=== PATIENT | male | born 1945 | race Caucasian/White ===

== ENCOUNTER 2016-09-29 15:13 | Outpatient (CLI) | payer MEDICARE, MEDICAID | END 2016-09-29 15:14 | disposition home or self-care (01) | DX: E87.6 Hypokalemia (principal); D50.9 Iron deficiency anemia, unspecified ==

== ENCOUNTER 2017-01-11 13:44 | Outpatient (CLI) | payer MEDICARE, MEDICAID | END 2017-01-11 23:59 | DX: E87.6 Hypokalemia (principal); D50.9 Iron deficiency anemia, unspecified; N28.9 Disorder of kidney and ureter, unspecified ==

== ENCOUNTER 2017-03-05 09:26 | Outpatient (CLI) | payer MEDICARE, MEDICAID ==
[2017-03-05 14:30] LABS: BASOPHILS # (AUTO) 0.1 10^3/uL (0.0-0.1); BASOPHILS % (AUTO) 0.6 %; BILIRUBIN,URINE NEGATIVE (NEGATIVE); EOSINOPHILS # (AUTO) 0.6 10^3/uL (0.0-0.7); EOSINOPHILS % (AUTO) 6.6 %; HCT - HEMATOCRIT 45.5 % (42.0-52.0); HGB - HEMOGLOBIN 15.3 g/dL (14.0-18.0); LYMPHOCYTES # (AUTO) 2.5 10^3/uL (1.5-3.5); LYMPHOCYTES % (AUTO) 27.9 %; MEAN CORPUSCULAR HEMOGLOBIN 30.8 pg (27.0-31.0); MEAN CORPUSCULAR HGB CONC 33.5 g/dL (32.0-36.0); MEAN CORPUSCULAR VOLUME 91.7 fL (80.0-94.0); MEAN PLATELET VOLUME 7.5 fL (7.4-11.4); MONOCYTES # (AUTO) 1.1 10^3/uL (0.0-1.0); NEUTROPHILS # (AUTO) 4.8 10^3/uL (1.5-6.6); NEUTROPHILS % (AUTO) 52.9 %; RED BLOOD COUNT 4.96 10^6/uL (4.70-6.10); UNCORRECTED WHITE BLOOD COUNT 9.1 x10^3/uL; WHITE BLOOD COUNT 9.1 x10^3/uL (4.8-10.8)
[2017-03-05 14:32] LABS: UA CHARGE (STRIP ONLY) YES; UR CULTURE IF IND NOT INDICATED
[2017-03-05 14:59] LABS: ALBUMIN/GLOBULIN RATIO 0.9 (1.0-2.2); BILIRUBIN,TOTAL 0.4 mg/dL (0.2-1.0); CALCIUM 9.5 mg/dL (8.5-10.3); CREATININE 1.1 mg/dL (0.6-1.2); POTASSIUM 3.6 mmol/L (3.5-5.0); TOTAL PROTEIN 7.9 g/dL (6.7-8.2)
[2017-03-05 15:00] LABS: HEMOGLOBIN A1C 0.58 g/dL
== END 2017-03-05 09:27 | disposition home or self-care (01) ==
LOC: LAB.N 09:26
PROVIDERS: ATTEND Orthopaedic Surgery
DX: Z01.818 Encounter for other preprocedural examination (principal); R73.09 Other abnormal glucose; N39.0 Urinary tract infection, site not specified
CPT/HCPCS: 36415; 80053; 81001; 81003; 83036; 85025; 87086

== ENCOUNTER 2017-03-07 13:30 | Outpatient (CLI) | payer MEDICARE, MEDICAID | END 2017-03-07 13:45 | disposition home or self-care (01) | LOC: RT.N 13:30 | PROVIDERS: ATTEND Family Medicine | DX: M17.0 Bilateral primary osteoarthritis of knee (principal); E66.9 Obesity, unspecified | CPT/HCPCS: 93005 ==

== ENCOUNTER 2020-05-16 02:10 | Outpatient (CLI) | payer MEDICARE, MEDICAID | END 2020-05-16 02:11 | disposition critical access hospital (66) | LOC: EMS 02:10 | PROVIDERS: ATTEND Surgery | DX: M54.9 Dorsalgia, unspecified (principal) | CPT/HCPCS: A0425; A0429 ==

== ENCOUNTER 2020-05-16 02:42 | Emergency (ER) | payer MEDICARE, MEDICAID ==
--- NOTE | 2020-05-16 02:24 | ED Physician Documentation ---
History of Present Illness - Stated complaint Stated Complaint: BACK PAIN - History obtained from History obtained from: Patient - Additonal information Additional information: Patient is a 74-year-old male presents the emergency department with a chief complaint of sciatica to his left lower extremity. He reports that he typically is managed at the [place] but has been unable to get an for an appointment he describes his symptoms as chronic he denies any new symptoms tonight. He denies any history of spinal surgery he denies any bowel or bladder dysfunction or any saddle anesthesia describes his symptoms as pain that radiate in the left gluteal region and radiate down to his foot. Review of Systems Constitutional: reports: Reviewed and negative Eyes: reports: Reviewed and negative Ears: reports: Reviewed and negative Nose: reports: Reviewed and negative Throat: reports: Reviewed and negative Cardiac: reports: Reviewed and negative Respiratory: reports: Reviewed and negative GI: reports: Reviewed and negative : reports: Reviewed and negative Skin: reports: Reviewed and negative Musculoskeletal: reports: Extremity pain Neurologic: reports: Reviewed and negative Psychiatric: reports: Reviewed and negative Endocrine: reports: Reviewed and negative Immunocompromised: reports: Reviewed and negative PD PAST MEDICAL HISTORY - Present Medications Home Medications: Ambulatory Orders Medication Instructions Recorded Confirmed Methylprednisolone [Medrol Dose 1 each PO .PACKAGEINSTRUCTIONS 6 05/16/20 Pack] Days #1 each - Allergies Allergies/Adverse Reactions: Allergies Allergy/AdvReac Type Severity Reaction Status Date / Time No Known Drug Allergies Allergy Verified 05/16/20 02:50 PD ED PE NORMAL - Vitals Vital signs reviewed: Yes - General General: Alert and oriented X 3, No acute distress, Well developed/nourished - HEENT HEENT: PERRL, Moist mucous membranes - Neck Neck: Supple, no meningeal sign - Cardiac Cardiac: RRR, No murmur, Strong equal pulses - Respiratory Respiratory: No respiratory distress, Clear bilaterally - Abdomen Abdomen: Normal bowel sounds, Soft, Non tender, Non distended - Male Male : Deferred - Rectal Rectal: Deferred - Back Back: No CVA TTP, No spinal TTP - Derm Derm: Normal color, Warm and dry, No rash - Extremities Extremities: No deformity, No tenderness to palpate, No edema, No calf tenderness / cord, Other (Positive straight leg test on the left patient is able to ambulate he can stand on his heels and his toes proprioception is intact bilateral great toes strength is 5 out of 5 sensations intact light touch.) - Neuro Neuro: Alert and oriented X 3 - Psych Psych: Normal mood, Normal affect Results - Vitals Vitals: Vital Signs - 24 hr 05/16/20 02:50 Temperature 37 C Heart Rate 70 Respiratory 18 Rate Blood Pressure 146/109 H O2 Saturation 94 Oxygen O2 Source Room air PD MEDICAL DECISION MAKING - ED course Complexity details: considered differential (Sciatica) ED course: 74-year-old male presents with a known diagnosis of sciatica without red flags on history or physical exam. Currently not undergoing any medical treatment or physical therapy will treat with a one-time intramuscular dose of 30 mg of Toradol 1 oral dose of Decadron. Patient reports that he has been unable to get into his medical provider therefore if the patient continues to have symptoms throughout the next week the patient is given a prescription for Medrol Dosepak That can be filled if he is not improving over the next several days. Patient should try to follow-up with a primary care provider if not he should return to the emergency department for worsening pain fevers weakness or any concerns. Departure - Departure Disposition: 01 Home, Self Care Clinical Impression: Sciatica of left side Condition: Stable Instructions: ED Sciatica Follow-Up: your, doctor [Other] - Tomorrow Prescriptions: Methylprednisolone [Medrol Dose Pack] 1 each PO .PACKAGEINSTRUCTIONS 6 Days #1 each Comments: Please follow-up with your primary care provider on Sunday.
[2020-05-16 02:53] VITALS: BP 146/109
[2020-05-16] MEDS ORDERED: DEXAMETHASONE 10 MG/ML VIAL PO STA (02:57)
[2020-05-16] MEDS ORDERED: KETOROLAC 30 MG/ML VIAL IM STA (02:57)
[2020-05-16] MEDS ORDERED: CHERRY SYRUP 10 ML UDC PO ONE (02:57)
== END 2020-05-16 03:20 | disposition home or self-care (01) ==
LOC: EDUNIT# → ED 02:42
DX: M54.32 Sciatica, left side (principal)
CPT/HCPCS: 96372; 99283; 99284; A9270

== ENCOUNTER 2021-08-26 17:30 | Inpatient (IN) | payer MEDICARE, MEDICAID ==
[2021-08-26 18:09] LABS: BASOPHILS # (AUTO) 0.1 10^3/uL (0.0-0.1); BASOPHILS % (AUTO) 0.9 %; EOSINOPHILS # (AUTO) 0.4 10^3/uL (0.0-0.7); EOSINOPHILS % (AUTO) 3.1 %; HGB - HEMOGLOBIN 11.2 g/dL (14.0-18.0); LYMPHOCYTES # (AUTO) 1.9 10^3/uL (1.5-3.5); LYMPHOCYTES % (AUTO) 15.7 %; MEAN CORPUSCULAR HEMOGLOBIN 21.4 pg (27.0-31.0); MEAN CORPUSCULAR VOLUME 76.3 fL (80.0-94.0); MEAN PLATELET VOLUME 8.9 fL (7.4-11.4); MONOCYTES # (AUTO) 0.9 10^3/uL (0.0-1.0); NEUTROPHILS # (AUTO) 8.9 10^3/uL (1.5-6.6); NEUTROPHILS % (AUTO) 72.6 %; PLT - PLATELET COUNT 584 10^3/uL (130-450); RED BLOOD COUNT 5.24 10^6/uL (4.70-6.10); RED CELL DISTRIBUTION WIDTH 26.7 % (12.0-15.0); WHITE BLOOD COUNT 12.2 x10^3/uL (4.8-10.8)
[2021-08-26 18:11] LABS: SLIDE REVIEW? Indicated
[2021-08-26 18:12] LABS: ALBUMIN 3.8 g/dL (3.2-5.5); ALBUMIN/GLOBULIN RATIO 0.9 (1.0-2.2); BILIRUBIN,TOTAL 0.7 mg/dL (0.2-1.0); CALCIUM 9.1 mg/dL (8.5-10.3); CREATININE 1.2 mg/dL (0.6-1.2); POTASSIUM 3.5 mmol/L (3.5-5.0); TOTAL PROTEIN 7.9 g/dL (6.7-8.2)
--- NOTE | 2021-08-26 18:12 | ED Physician Documentation ---
PD HPI CHEST PAIN - Stated complaint Stated Complaint: HIGH HR,BACK PX - Chief complaint Chief Complaint: Cardiac - History obtained from History obtained from: Patient - Additional information Additional information: 76-year-old [employer] presents by private vehicle after referral from the clinic. He went to the clinic today for back pain. He has had on and off sciatica for quite some time and its been worse over the last couple of weeks, low back pain radiating to either side. Much worse with position changes and walking. He also notes that for the last couple of weeks has had progressive dyspnea and mild pedal edema. In the clinic he was noted to be in potential atrial fibrillation and referred here for further evaluation and treatment. He was noted to have room air saturation of 86% in the clinic. He has no history of heart problems. Review of Systems Ten Systems: 10 systems reviewed and negative Constitutional: reports: Fatigue Nose: denies: Rhinorrhea / runny nose, Congestion Cardiac: reports: Pedal edema. denies: Chest pain / pressure, Palpitations, Jose f pain Respiratory: reports: Dyspnea. denies: Cough PD PAST MEDICAL HISTORY - Past Medical History Cardiovascular: Hypertension Musculoskeletal: Chronic back pain - Present Medications Home Medications: Ambulatory Orders Medication Instructions Recorded Confirmed methylPREDNISolone [Medrol Dose 1 each PO .PACKAGEINSTRUCTIONS 6 05/16/20 Pack] Days #1 each - Allergies Allergies/Adverse Reactions: Allergies Allergy/AdvReac Type Severity Reaction Status Date / Time No Known Drug Allergies Allergy Verified 08/26/21 17:42 - Social History Does the pt smoke?: No Smoking Status: Never smoker Does the pt drink ETOH?: No Does the pt have substance abuse?: No - Immunizations Immunizations are current?: Yes - POLST Patient has POLST: No PD ED PE NORMAL - Vitals Vital signs reviewed: Yes - General General: Alert and oriented X 3, No acute distress - HEENT HEENT: PERRL, EOMI - Neck Neck: Supple, no meningeal sign, No bony TTP - Cardiac Cardiac: No murmur, Other (Irregularly irregular corresponding to A. fib for the most part on the monitor with frequent PVCs on the monitor as well.) - Respiratory Respiratory: No respiratory distress, Clear bilaterally - Abdomen Abdomen: Normal bowel sounds, Soft, Non tender, Other (Bedside ultrasound demonstrates no ascites) - Back Back: No CVA TTP, No spinal TTP - Derm Derm: Normal color, Warm and dry - Extremities Extremities: Other (trace B pedal edema, R leg in splint d/t tendonopathy) - Neuro Neuro: Alert and oriented X 3, Normal speech Results - Vitals Vitals: Vital Signs - 24 hr 08/26/21 08/26/21 08/26/21 17:36 17:47 18:32 Temperature 36.1 C L Heart Rate 110 H 104 H 95 Respiratory 34 H 20 22 Rate Blood Pressure 150/137 H 150/100 H 144/105 H O2 Saturation 97 99 99 08/26/21 08/26/21 08/26/21 18:37 18:41 18:44 Temperature Heart Rate 76 66 71 Respiratory 22 15 17 Rate Blood Pressure 116/75 116/75 107/80 O2 Saturation 93 98 98 08/26/21 08/26/21 18:49 19:33 Temperature Heart Rate 66 68 Respiratory 16 20 Rate Blood Pressure 129/87 H 128/82 H O2 Saturation 97 98 Oxygen O2 Source Room air - EKG (time done) 1737 Rate: Rate (enter#) (107) Rhythm: Other (I suspect he is in A. fib, computer reads it as sinus or ectopic rhythm) [place]: LAD Intervals: Other (LAFB) Ischemia: Non specific changes 1906 Rate: Rate (enter#) (90) Rhythm: NSR (Sinus rhythm with frequent multiform PVCs) Intervals: Prolonged [place] (VANESSA 268) QRS: Normal Ischemia: Q waves (Inferior and anterior), Non specific changes - Labs Labs: Laboratory Tests 08/26/21 08/26/21 08/26/21 17:49 17:49 17:49 WBC 12.2 H RBC 5.24 Hgb 11.2 L Hct 40.0 L MCV 76.3 L MCH 21.4 L MCHC 28.0 L RDW 26.7 H Plt Count 584 H MPV 8.9 Neut # (Auto) 8.9 H Lymph # (Auto) 1.9 [place] # (Auto) 0.9 Eos # (Auto) 0.4 Baso # (Auto) 0.1 Absolute Nucleated RBC 0.00 Nucleated RBC % 0.0 Manual Slide Review Indicated Platelet Estimate INCREASED (>450,000) Platelet Morphology NORMAL APPEARANCE RBC Morph Micro Appear 1+ HYPOCHROMASIA PT INR Sodium 137 Potassium 3.5 Chloride 105 Carbon Dioxide 21 Anion Gap 11.0 BUN 16 Creatinine 1.2 Estimated GFR (MDRD) 59 L Glucose 97 Calcium 9.1 Total Bilirubin 0.7 AST 23 ALT 14 Alkaline Phosphatase 97 Troponin I High Sens 57.6 H* B-Natriuretic Peptide Total Protein 7.9 Albumin 3.8 Globulin 4.1 Albumin/Globulin Ratio 0.9 L Lipase 23 Nasal Adenovirus (PCR) Nasal B. parapertussis DNA (PCR) Nasal Coronavir 229E PCR Nasal Coronavir HKU1 PCR Nasal Coronavir NL63 PCR Nasal Coronavir OC43 PCR Nasal Enterovir/Rhinovir PCR Nasal Influenza B PCR Nasal Influenza A PCR Nasal Parainfluen 1 PCR Nasal Parainfluen 2 PCR Nasal Parainfluen 3 PCR Nasal Parainfluen 4 PCR Nasal RSV (PCR) Nasal B.pertussis DNA PCR Nasal C.pneumoniae (PCR) James Human Metapneumo PCR Nasal M.pneumoniae (PCR) Nasal SARS-CoV-2 (PCR) 08/26/21 08/26/21 08/26/21 17:49 18:04 19:46 WBC RBC Hgb Hct MCV MCH MCHC RDW Plt Count MPV Neut # (Auto) Lymph # (Auto) [place] # (Auto) Eos # (Auto) Baso # (Auto) Absolute Nucleated RBC Nucleated RBC % Manual Slide Review Platelet Estimate Platelet Morphology RBC Morph Micro Appear PT 16.8 H INR 1.5 H Sodium Potassium Chloride Carbon Dioxide Anion Gap BUN Creatinine Estimated GFR (MDRD) Glucose Calcium Total Bilirubin AST ALT Alkaline Phosphatase Troponin I High Sens B-Natriuretic Peptide 1246 H Total Protein Albumin Globulin Albumin/Globulin Ratio Lipase Nasal Adenovirus (PCR) NOT DETECTED Nasal B. parapertussis DNA (PCR) NOT DETECTED Nasal Coronavir 229E PCR NOT DETECTED Nasal Coronavir HKU1 PCR NOT DETECTED Nasal Coronavir NL63 PCR NOT DETECTED Nasal Coronavir OC43 PCR NOT DETECTED Nasal Enterovir/Rhinovir PCR NOT DETECTED Nasal Influenza B PCR NOT DETECTED Nasal Influenza A PCR NOT DETECTED Nasal Parainfluen 1 PCR NOT DETECTED Nasal Parainfluen 2 PCR NOT DETECTED Nasal Parainfluen 3 PCR NOT DETECTED Nasal Parainfluen 4 PCR NOT DETECTED Nasal RSV (PCR) NOT DETECTED Nasal B.pertussis DNA PCR NOT DETECTED Nasal C.pneumoniae (PCR) NOT DETECTED James Human Metapneumo PCR NOT DETECTED Nasal M.pneumoniae (PCR) NOT DETECTED Nasal SARS-CoV-2 (PCR) NOT DETECTED - Rads (name of study) Single view chest x-ray demonstrates moderate pulmonary edema and cardiomegaly Radiology: EMP read contemporaneously PD MEDICAL DECISION MAKING - ED course Complexity details: other (We did call the [facility] and confirmed with Cristi at the [facility] that they do not have beds) ED course: 76-year-old gentleman's presents with what sounds like acute pulmonary edema related to congestive heart failure. He has no ischemic chest pain. Initial EKG, I was not quite sure what the rhythm was. I thought it was probably Atrial fibrillation and he was given 10 mg of diltiazem with rate control and now he is in sinus rhythm on repeat EKG with long [place] and frequent multiform PVCs. He does have a positive troponin in the 50s and a very positive BNP and in the 1200s. He was administered aspirin, IV Lasix. Dr. Bello will observe and we spoke at 7:48 PM. Departure - Departure Disposition: ED Place in Observation Clinical Impression: Congestive heart failure Qualifiers: Heart failure type: unspecified Heart failure chronicity: acute Qualified Code(s): I50.9 - Heart failure, unspecified Condition: Serious Discharge Date/Time: 08/26/21 20:30
[2021-08-26] MEDS ORDERED: ASPIRIN 325 MG TABLET PO STA (18:26)
[2021-08-26] MEDS ORDERED: diltiaZEM INJ 5 MG/ML VIAL IVP STA (18:26)
--- NOTE | 2021-08-26 18:35 | XRAY Report ---
PROCEDURE: Chest 1 View X-Ray INDICATIONS: Dyspnoea, likely chf TECHNIQUE: One view of the chest was acquired. COMPARISON: None FINDINGS: Surgical changes and devices: None. Lungs and pleura: No pleural effusions or pneumothorax. Increased interstitial markings. Mediastinum: Mediastinal contours appear normal. Heart size is enlarged. Bones and chest wall: No suspicious bony lesions. Overlying soft tissues appear unremarkable. IMPRESSION: Moderate pulmonary edema with cardiomegaly. Reviewed by: Driss Alejandre MD on 08/26/2021 6:33 PM [facility] Approved by: Driss Alejandre MD on 08/26/2021 6:33 PM [facility] Station ID: [id number]
[2021-08-26] MEDS ORDERED: FUROSEMIDE 40 MG/4 ML VIAL IVP STA (18:36)
[2021-08-26 19:26] LABS: INR 1.5 (0.8-1.2); PT - PROTHROMBIN TIME 16.8 secs (9.9-12.6)
[2021-08-26 19:31] LABS: PLATELET ESTIMATE, MANUAL INCREASED (>450,000) (NORMAL); PLATELET MORPHOLOGY NORMAL APPEARANCE (NORMAL)
[2021-08-26] MEDS ORDERED: ONDANSETRON ODT 4 MG TABLET TL PRN (19:49)
[2021-08-26] MEDS ORDERED: ONDANSETRON 4 MG/2 ML VIAL IVP PRN (19:49)
[2021-08-26] MEDS ORDERED: SODIUM CHLORIDE FLUSH 0.9% 10 ML SYRINGE IVP PRN (19:49)
--- NOTE | 2021-08-26 19:53 | HISTORY & PHYSICAL EXAMINATION ---
Chief Complaint - Chief Complaint Chief Complaint: Back pain History of Present Illness - Admitted From Admitted From:: Home - History Obtained From Records Reviewed: Yes History obtained from: Patient, ER Physician, EMR - History of Present Illness HPI Comment/Other: This is a 76-year-old male with a past medical history significant for chronic lower back pain who presents today complaining of worsening lower back pain. He states he has had sciatica for many years now and normally radiates down his left leg. Over the past week he has developed bilateral back pain that will radiate occasionally to the side of his abdomen. This is different than his sciatica pain. He thought it may have been related to some bad meat he ate last week. He went to the walk-in clinic today and it was noted that he was hypoxic as well as tachycardic with concern for atrial fibrillation and so he was referred to the emergency department. The patient does admit to feeling short of breath with activity for quite some time now. He believes he may have been feeling short of breath for the past year. He has noticed leg swelling that began over the past couple of days. He denies any orthopnea, chest pain. He had a stress test over 10 years ago and this was unremarkable from what he can recall. He is scheduled for an echocardiogram later this month. In the emergency department, he was noted to be tachycardic with heart rates in the low 100s. It was not clear if it was A. fib or sinus with PACs and so he was given 10 mg of diltiazem and a repeat EP EKG showed a sinus rhythm with a prolonged ID interval. He was noted to also be hypoxic with activity down to 88%. He was given dose of Lasix and medicine was consulted for admission. We discussed goals of care and he would like to be a full code. History - Past Medical History Cardiovascular: reports: Hypertension Musculoskeletal: reports: Chronic back pain - Family & Social History Family History Comment/Other: He believes his mother had a history of diabetes. Living arrangement: At home Social History Notes: He quit smoking over 40 years ago. He rarely drinks alcohol. - POLST Patient has POLST: No Meds/Allgy - Home Medications Home Medications: Ambulatory Orders Medication Instructions Recorded Confirmed methylPREDNISolone [Medrol Dose 1 each PO .PACKAGEINSTRUCTIONS 6 05/16/20 Pack] Days #1 each - Allergies Allergies/Adverse Reactions: Allergies Allergy/AdvReac Type Severity Reaction Status Date / Time No Known Drug Allergies Allergy Verified 08/26/21 17:42 Review of Systems - Constitutional Constitutional: denies: Fever, Chills - Ears, Nose & Throat Ears, Nose & Throat: denies: Nasal pain, Nasal congestion, Sore throat - Cardiovascular Cariovascular: reports: Edema, Exertional dyspnea, Decr. exercise tolerance. denies: Chest pain - Respiratory Respiratory: reports: Cough, SOB with exertion. denies: Sputum production, Orthopnea, SOB at rest - Gastrointestinal Gastrointestinal: denies: Abdominal pain, Diarrhea, Black stools, Bloody stools, Nausea, Vomiting - Genitourinary Genitourinary: reports: Flank pain. denies: Dysuria, Frequency, Urgency, He maturia - Musculoskeletal Musculoskeletal: reports: Back pain - Integumentary Integumentary: denies: Rash, Pigment changes - Neurological Neurological: denies: General weakness, Focal weakness - Hematologic/Lymphatic Hematologic/Lymphatic: reports: Anemia - All Other Systems All Other Systems: reports: Reviewed and negative Prior Level of Functionality: He is independent with his ADLs. Exam - Vital Signs Reviewed Vital Signs: Yes Vital Signs: Vital Signs x48h Temp Pulse Resp BP Pulse Ox 08/26/21 19:33 68 20 128/82 H 98 08/26/21 18:49 66 16 129/87 H 97 08/26/21 18:44 71 17 107/80 98 08/26/21 18:41 66 15 116/75 98 08/26/21 18:37 76 22 116/75 93 08/26/21 18:32 95 22 144/105 H 99 08/26/21 17:47 104 H 20 150/100 H 99 08/26/21 17:36 36.1 C L 110 H 34 H 150/137 H 97 - Physical Exam General Appearance: positive: No acute distress, Alert Eyes Bilateral: positive: Normal inspection, Conjunctivae nml ENT: positive: ENT inspection nml Neck: positive: Nml inspection Respiratory: positive: No respiratory distress, Other (Faint crackles.). negative: Wheezes, Rales Cardiovascular: positive: Regular rate & rhythm, Extrasystoles. negative: Irregularly irregular Abdomen: positive: Non-tender, No distention. negative: Tenderness Back: positive: Nml inspection, Other (No lumbar or paraspinal muscle tenderness) Extremities: positive: Pedal edema (Trace pitting edema in the bilateral lower extremities) Neurologic/Psychiatric: positive: Motor nml. negative: Disoriented to person, Disoriented to place Conclusion/Plan - Problem List (1) Congestive heart failure Conclusion/Plan: He appears to be in new onset heart failure. It is unclear this is diastolic or systolic dysfunction. His BNP is elevated and his imaging reveals pulmonary alissa ma. Although he is not hypoxic at rest, he does become hypoxic with activity. Given this, he will be admitted for IV diuresis. If he remains hospitalized through the weekend we will look to obtain echocardiogram on Sunday otherwise he will need 1 on an outpatient basis. Daily weights and strict I's and O's. Fluid restriction. Low-sodium diet. Trend BNP. Qualifiers: Heart failure type: unspecified Heart failure chronicity: acute Qualified Code(s): I50.9 - Heart failure, unspecified (2) Elevated troponin Conclusion/Plan: His troponin is mildly elevated in the 50s and repeat 2 hours later was only slightly increased. Suspect is likely demand ischemia from his heart failure given he has no chest pain and his EKG does not suggest ischemia. We will recommend an outpatient stress test on discharge she cannot obtain one over the weekend. (3) 1st degree AV block Conclusion/Plan: His repeat EKG revealed a sinus rhythm with a prolonged ID interval as well as PVC's and PAC's. We will monitor on telemetry and maintain his potassium greater than 4. We will check a magnesium as well. If his PVCs and PACs continued we will start him on a beta-nithya. (4) Back pain Conclusion/Plan: He has new back pain over the past week that is nonradiating. It is different compared to his baseline sciatica. Suspect this is musculoskeletal. He has no lumbar or paraspinal tenderness. We will trial Robaxin. Qualifiers: Back pain location: low back pain (5) Thrombocytosis Conclusion/Plan: His platelet count is elevated and this has also been present in the past. I do note his MCV is decreased and he is slightly anemic so I suspect related to iron deficiency anemia. Review of prior labs revealed that his MCV/hemoglobin was also decreased when his platelet count was elevated and his platelet count improved when his MCV/hemoglobin was within normal limits. We will check iron studies. (6) Iron deficiency anemia Conclusion/Plan: Etiology of this is not clear but he states this is chronic for him he takes oral iron daily. His MCV is still decreasing and he has thrombocytosis. We will check iron studies mentioned above. He may ultimately benefit from IV iron infusion if he is still anemic despite oral iron supplementation. - Lab Results Lab results reviewed: Yes Fish Bones: 08/26/21 17:49 08/26/21 17:49 - Diagnostic Imaging Results Diagnostic Imaging Results: positive: Final report reviewed Core Measures - Anticipated LOS I expect patient to be DC'd or transferred within 96 hours.: Yes - Issues Hospital Issues and Management Plan: 76-year-old male presents with back pain found to have new onset congestive heart failure. He will be admitted for diuresis. - DVT/VTE - Prophylaxis VTE/DVT Device ordered at admit?: Yes VTE/DVT Prophylaxis med ordered at admit?: Yes
[2021-08-26] MEDS ORDERED: POTASSIUM CHLORIDE 20 MEQ TABLET PO ONE (20:55)
[2021-08-26 21:04] LABS: CORONAVIRUS 229E-RESP PCR NOT DETECTED; CORONAVIRUS HKU1-RESP PCR NOT DETECTED; CORONAVIRUS NL63-RESP PCR NOT DETECTED; CORONAVIRUS OC43-RESP PCR NOT DETECTED; HUMAN METAPNEUMOVIRUS NOT DETECTED; INFLUENZA A- RESP PCR PANEL NOT DETECTED; INFLUENZA B - RESP PCR PANEL NOT DETECTED; PARAINFLUENZA VIRUS 1 NOT DETECTED; PARAINFLUENZA VIRUS 2 NOT DETECTED; PARAINFLUENZA VIRUS 3 NOT DETECTED; RHINOVIRUS/ENTEROVIRUS NOT DETECTED; RSV- RESP PCR PANEL NOT DETECTED; SARS-CoV-2 -RESP PCR PANEL NOT DETECTED
[2021-08-26 21:05] LABS: B. PARAPERTUSSIS- RESP PCR PAN NOT DETECTED; B. PERTUSSIS- RESP PCR PANEL NOT DETECTED; C. PNEUMONIAE- RESP PCR PANEL NOT DETECTED; M. PNEUMONIAE- RESP PCR PANEL NOT DETECTED; PARAINFLUENZA VIRUS 4 NOT DETECTED
[2021-08-26] MEDS: methocarbamoL 500 MG TABLET PO PRN (21:58)
[2021-08-27] MEDS ORDERED: METOPROLOL TARTRATE 50 MG TABLET PO STA (00:11)
[2021-08-27] MEDS: ACETAMINOPHEN 325 MG TABLET PO PRN ×4 (00:55→22:49)
[2021-08-27] MEDS: SODIUM CHLORIDE FLUSH 0.9% 10 ML SYRINGE IVP SCH ×3 (01:04→18:08)
[2021-08-27] MEDS: methocarbamoL 500 MG TABLET PO PRN ×3 (04:33→20:31)
[2021-08-27 06:10] LABS: BASOPHILS # (AUTO) 0.1 10^3/uL (0.0-0.1); BASOPHILS % (AUTO) 0.8 %; EOSINOPHILS # (AUTO) 0.5 10^3/uL (0.0-0.7); EOSINOPHILS % (AUTO) 4.5 %; HCT - HEMATOCRIT 39.2 % (42.0-52.0); HGB - HEMOGLOBIN 11.1 g/dL (14.0-18.0); LYMPHOCYTES # (AUTO) 1.8 10^3/uL (1.5-3.5); LYMPHOCYTES % (AUTO) 15.5 %; MEAN CORPUSCULAR HEMOGLOBIN 21.3 pg (27.0-31.0); MEAN CORPUSCULAR HGB CONC 28.3 g/dL (32.0-36.0); MEAN CORPUSCULAR VOLUME 75.2 fL (80.0-94.0); MEAN PLATELET VOLUME 9.2 fL (7.4-11.4); MONOCYTES # (AUTO) 1.1 10^3/uL (0.0-1.0); MONOCYTES % (AUTO) 9.6 %; NEUTROPHILS # (AUTO) 8.2 10^3/uL (1.5-6.6); NEUTROPHILS % (AUTO) 69.3 %; PLT - PLATELET COUNT 582 10^3/uL (130-450); RED BLOOD COUNT 5.21 10^6/uL (4.70-6.10); RED CELL DISTRIBUTION WIDTH 26.5 % (12.0-15.0); WHITE BLOOD COUNT 11.8 x10^3/uL (4.8-10.8)
[2021-08-27 06:13] LABS: SLIDE REVIEW? Indicated
[2021-08-27 06:27] LABS: CALCIUM 8.9 mg/dL (8.5-10.3); CREATININE 1.3 mg/dL (0.6-1.2); POTASSIUM 3.5 mmol/L (3.5-5.0)
[2021-08-27 06:33] LABS: PLATELET ESTIMATE, MANUAL INCREASED (>450,000) (NORMAL); PLATELET MORPHOLOGY NORMAL APPEARANCE (NORMAL); WBC MORPHOLOGY (MULTIPLE) NORMAL APPEARANCE (NORMAL)
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
[2021-08-27] MEDS ORDERED: FUROSEMIDE 40 MG/4 ML VIAL IVP SCH (09:00)
[2021-08-27] MEDS: FERROUS SULFATE 325 MG TABLET PO SCH ×2 (09:50→18:08)
[2021-08-27] MEDS: ENOXAPARIN 40 MG/0.4 ML SYRINGE SUBQ SCH (09:51)
--- NOTE | 2021-08-27 10:43 | PROVIDER PROGRESS NOTE ---
Subjective - Prog Note Date Prog Note Date: 08/27/21 Prog Note Time: 11:00 - Subjective Pt reports feeling: Improved Subjective: he is less sob but still has matthews with standing or getting to bedside commode. legs hurt. Current Medications - Current Medications Current Medications: Active Medications Acetaminophen (Acetaminophen 325 Mg Tablet) 650 mg PO Q4HR PRN PRN Reason: Pain 1 to 4 Last Admin: 08/27/21 09:52 Dose: 650 mg Documented by: Enoxaparin Sodium (Enoxaparin 40 Mg/0.4 Ml Syringe) 40 mg SUBQ DAILY [facility] Last Admin: 08/27/21 09:51 Dose: 40 mg Documented by: Ferrous Sulfate (Ferrous Sulfate 325 Mg Tablet) 325 mg PO BIDWM [facility] Last Admin: 08/27/21 09:50 Dose: 325 mg Documented by: Furosemide (Furosemide 40 Mg/4 Ml Vial) 40 mg IVP DAILY [facility] Last Admin: 08/27/21 09:52 Dose: 40 mg Documented by: Methocarbamol (Methocarbamol 500 Mg Tablet) 500 mg PO Q6HR PRN PRN Reason: Spasms Last Admin: 08/27/21 09:53 Dose: 500 mg Documented by: Ondansetron HCl (Ondansetron Odt 4 Mg Tablet) 4 mg TL Q6HR PRN PRN Reason: Nausea / Vomiting Ondansetron HCl (Ondansetron 4 Mg/2 Ml Vial) 4 mg IVP Q6HR PRN PRN Reason: Nausea / Vomiting Sodium Chloride (Sodium Chloride Flush 0.9% 10 Ml Syringe) 10 ml IVP PRN PRN PRN Reason: NEEDED PER PROVIDER ORDERS Sodium Chloride (Sodium Chloride Flush 0.9% 10 Ml Syringe) 10 ml IVP 0100,0900,1700 [facility] Last Admin: 08/27/21 09:52 Dose: 10 ml Documented by: Doxylamine Succinate [Unisom] 25 mg PO QPM PRN 08/27/21 Ferrous Sulfate 325 mg PO DAILY 08/27/21 Ibuprofen [Advil] 800 mg PO TID PRN 08/27/21 allopurinoL [Allopurinol] 300 mg PO DAILY 08/27/21 Objective - Vital Signs/Intake & Output Reviewed Vital Signs: Yes Vital Signs: Vital Signs x48h Temp Pulse Resp BP Pulse Ox 08/27/21 07:25 36.5 C 78 18 127/88 H 94 08/27/21 04:30 36.6 C 82 18 130/86 H 95 Intake & Output: Intake & Output 08/24/21 08/25/21 08/26/21 08/27/21 23:59 23:59 23:59 23:59 Intake Total 1880 Output Total 3502 2074 Balance -3500 -195 - Objective General Appearance: positive: No acute distress, Alert, Other (Bearded white male, looks stated age, comfortable in speech patterns while sitting at the edge of bed eating breakfast) Eyes Bilateral: positive: PERRL, EOMI ENT: positive: No signs of dehydration Neck: positive: No JVD. negative: Stiff neck Respiratory: positive: No respiratory distress. negative: Wheezes, Rales, Rhonchi Cardiovascular: positive: Regular rate & rhythm, JVD present. negative: Gallop/S4, Friction rub Abdomen: positive: Non-tender (portly, obese belly), Nml bowel sounds, No distention Skin: positive: Warm, Dry - Lab Results Fish Bones: 08/27/21 04:58 08/27/21 04:58 Other Labs: Lab Results x24hrs 08/27/21 08/27/21 08/27/21 Range/Units 04:58 04:58 04:58 WBC (4.8-10.8) x10^3/uL RBC (4.70-6.10) 10^6/uL Hgb (14.0-18.0) g/dL Hct (42.0-52.0) % MCV (80.0-94.0) fL MCH (27.0-31.0) pg MCHC (32.0-36.0) g/dL RDW (12.0-15.0) % Plt Count (130-450) 10^3/uL MPV (7.4-11.4) fL Neut # (Auto) (1.5-6.6) 10^3/uL Lymph # (Auto) (1.5-3.5) 10^3/uL Daviess # (Auto) (0.0-1.0) 10^3/uL Eos # (Auto) (0.0-0.7) 10^3/uL Baso # (Auto) (0.0-0.1) 10^3/uL Absolute Nucleated RBC x10^3/uL Nucleated RBC % /100WBC Manual Slide Review WBC Morphology (NORMAL) Platelet Estimate (NORMAL) Platelet Morphology (NORMAL) RBC Morph Micro Appear (NORMAL) PT (9.9-12.6) secs INR (0.8-1.2) Sodium 135 (135-145) mmol/L Potassium 3.5 (3.5-5.0) mmol/L Chloride 101 (101-111) mmol/L Carbon Dioxide 21 (21-32) mmol/L Anion Gap 13.0 (6-13) BUN 18 (6-20) mg/dL Creatinine 1.3 H (0.6-1.2) mg/dL Estimated GFR (MDRD) 54 L (>89) Glucose 88 (70-100) mg/dL Calcium 8.9 (8.5-10.3) mg/dL Magnesium (1.7-2.8) mg/dL Iron 16 L (45-182) ug/dL TIBC 458 H (250-450) ug/dL % Saturation 3 L (20-50) % Transferrin 327 (180-329) mg/dL Ferritin 11.9 L (23.9-336.2) ng/mL Total Bilirubin (0.2-1.0) mg/dL AST (10-42) IU/L ALT (10-60) IU/L Alkaline Phosphatase (42-121) IU/L Troponin I High Sens (2.3-19.7) ng/L B-Natriuretic Peptide 1304 H (5-100) pg/mL Total Protein (6.7-8.2) g/dL Albumin (3.2-5.5) g/dL Globulin (2.1-4.2) g/dL Albumin/Globulin Ratio (1.0-2.2) Lipase (22-51) U/L Nasal Adenovirus (PCR) Nasal B. parapertussis DNA (PCR) Nasal Coronavir 229E PCR Nasal Coronavir HKU1 PCR Nasal Coronavir NL63 PCR Nasal Coronavir OC43 PCR Nasal Enterovir/Rhinovir PCR Nasal Influenza B PCR Nasal Influenza A PCR Nasal Parainfluen 1 PCR Nasal Parainfluen 2 PCR Nasal Parainfluen 3 PCR Nasal Parainfluen 4 PCR Nasal RSV (PCR) Nasal B.pertussis DNA PCR Nasal C.pneumoniae (PCR) James Human Metapneumo PCR Nasal M.pneumoniae (PCR) Nasal SARS-CoV-2 (PCR) 08/27/21 08/26/21 08/26/21 Range/Units 04:58 22:52 20:00 WBC 11.8 H (4.8-10.8) x10^3/uL RBC 5.21 (4.70-6.10) 10^6/uL Hgb 11.1 L (14.0-18.0) g/dL Hct 39.2 L (42.0-52.0) % MCV 75.2 L (80.0-94.0) fL MCH 21.3 L (27.0-31.0) pg MCHC 28.3 L (32.0-36.0) g/dL RDW 26.5 H (12.0-15.0) % Plt Count 582 H (130-450) 10^3/uL MPV 9.2 (7.4-11.4) fL Neut # (Auto) 8.2 H (1.5-6.6) 10^3/uL Lymph # (Auto) 1.8 (1.5-3.5) 10^3/uL Daviess # (Auto) 1.1 H (0.0-1.0) 10^3/uL Eos # (Auto) 0.5 (0.0-0.7) 10^3/uL Baso # (Auto) 0.1 (0.0-0.1) 10^3/uL Absolute Nucleated RBC 0.00 x10^3/uL Nucleated RBC % 0.0 /100WBC Manual Slide Review Indicated WBC Morphology NORMAL APPEARANCE (NORMAL) Platelet Estimate INCREASED (>450,000) (NORMAL) Platelet Morphology NORMAL APPEARANCE (NORMAL) RBC Morph Micro Appear 1+ HYPOCHROMASIA (NORMAL) PT (9.9-12.6) secs INR (0.8-1.2) Sodium (135-145) mmol/L Potassium (3.5-5.0) mmol/L Chloride (101-111) mmol/L Carbon Dioxide (21-32) mmol/L Anion Gap (6-13) BUN (6-20) mg/dL Creatinine (0.6-1.2) mg/dL Estimated GFR (MDRD) (>89) Glucose (70-100) mg/dL Calcium (8.5-10.3) mg/dL Magnesium (1.7-2.8) mg/dL Iron (45-182) ug/dL TIBC (250-450) ug/dL % Saturation (20-50) % Transferrin (180-329) mg/dL Ferritin (23.9-336.2) ng/mL Total Bilirubin (0.2-1.0) mg/dL AST (10-42) IU/L ALT (10-60) IU/L Alkaline Phosphatase (42-121) IU/L Troponin I High Sens 55.3 H* 61.2 H* (2.3-19.7) ng/L B-Natriuretic Peptide (5-100) pg/mL Total Protein (6.7-8.2) g/dL Albumin (3.2-5.5) g/dL Globulin (2.1-4.2) g/dL Albumin/Globulin Ratio (1.0-2.2) Lipase (22-51) U/L Nasal Adenovirus (PCR) Nasal B. parapertussis DNA (PCR) Nasal Coronavir 229E PCR Nasal Coronavir HKU1 PCR Nasal Coronavir NL63 PCR Nasal Coronavir OC43 PCR Nasal Enterovir/Rhinovir PCR Nasal Influenza B PCR Nasal Influenza A PCR Nasal Parainfluen 1 PCR Nasal Parainfluen 2 PCR Nasal Parainfluen 3 PCR Nasal Parainfluen 4 PCR Nasal RSV (PCR) Nasal B.pertussis DNA PCR Nasal C.pneumoniae (PCR) James Human Metapneumo PCR Nasal M.pneumoniae (PCR) Nasal SARS-CoV-2 (PCR) 08/26/21 08/26/21 08/26/21 Range/Units 19:46 18:04 17:49 WBC (4.8-10.8) x10^3/uL RBC (4.70-6.10) 10^6/uL Hgb (14.0-18.0) g/dL Hct (42.0-52.0) % MCV (80.0-94.0) fL MCH (27.0-31.0) pg MCHC (32.0-36.0) g/dL RDW (12.0-15.0) % Plt Count (130-450) 10^3/uL MPV (7.4-11.4) fL Neut # (Auto) (1.5-6.6) 10^3/uL Lymph # (Auto) (1.5-3.5) 10^3/uL Daviess # (Auto) (0.0-1.0) 10^3/uL Eos # (Auto) (0.0-0.7) 10^3/uL Baso # (Auto) (0.0-0.1) 10^3/uL Absolute Nucleated RBC x10^3/uL Nucleated RBC % /100WBC Manual Slide Review WBC Morphology (NORMAL) Platelet Estimate (NORMAL) Platelet Morphology (NORMAL) RBC Morph Micro Appear (NORMAL) PT 16.8 H (9.9-12.6) secs INR 1.5 H (0.8-1.2) Sodium (135-145) mmol/L Potassium (3.5-5.0) mmol/L Chloride (101-111) mmol/L Carbon Dioxide (21-32) mmol/L Anion Gap (6-13) BUN (6-20) mg/dL Creatinine (0.6-1.2) mg/dL Estimated GFR (MDRD) (>89) Glucose (70-100) mg/dL Calcium (8.5-10.3) mg/dL Magnesium 2.1 (1.7-2.8) mg/dL Iron (45-182) ug/dL TIBC (250-450) ug/dL % Saturation (20-50) % Transferrin (180-329) mg/dL Ferritin (23.9-336.2) ng/mL Total Bilirubin (0.2-1.0) mg/dL AST (10-42) IU/L ALT (10-60) IU/L Alkaline Phosphatase (42-121) IU/L Troponin I High Sens (2.3-19.7) ng/L B-Natriuretic Peptide (5-100) pg/mL Total Protein (6.7-8.2) g/dL Albumin (3.2-5.5) g/dL Globulin (2.1-4.2) g/dL Albumin/Globulin Ratio (1.0-2.2) Lipase (22-51) U/L Nasal Adenovirus (PCR) NOT DETECTED Nasal B. parapertussis DNA (PCR) NOT DETECTED Nasal Coronavir 229E PCR NOT DETECTED Nasal Coronavir HKU1 PCR NOT DETECTED Nasal Coronavir NL63 PCR NOT DETECTED Nasal Coronavir OC43 PCR NOT DETECTED Nasal Enterovir/Rhinovir PCR NOT DETECTED Nasal Influenza B PCR NOT DETECTED Nasal Influenza A PCR NOT DETECTED Nasal Parainfluen 1 PCR NOT DETECTED Nasal Parainfluen 2 PCR NOT DETECTED Nasal Parainfluen 3 PCR NOT DETECTED Nasal Parainfluen 4 PCR NOT DETECTED Nasal RSV (PCR) NOT DETECTED Nasal B.pertussis DNA PCR NOT DETECTED Nasal C.pneumoniae (PCR) NOT DETECTED James Human Metapneumo PCR NOT DETECTED Nasal M.pneumoniae (PCR) NOT DETECTED Nasal SARS-CoV-2 (PCR) NOT DETECTED 08/26/21 08/26/21 08/26/21 Range/Units 17:49 17:49 17:49 WBC (4.8-10.8) x10^3/uL RBC (4.70-6.10) 10^6/uL Hgb (14.0-18.0) g/dL Hct (42.0-52.0) % MCV (80.0-94.0) fL MCH (27.0-31.0) pg MCHC (32.0-36.0) g/dL RDW (12.0-15.0) % Plt Count (130-450) 10^3/uL MPV (7.4-11.4) fL Neut # (Auto) (1.5-6.6) 10^3/uL Lymph # (Auto) (1.5-3.5) 10^3/uL Daviess # (Auto) (0.0-1.0) 10^3/uL Eos # (Auto) (0.0-0.7) 10^3/uL Baso # (Auto) (0.0-0.1) 10^3/uL Absolute Nucleated RBC x10^3/uL Nucleated RBC % /100WBC Manual Slide Review WBC Morphology (NORMAL) Platelet Estimate (NORMAL) Platelet Morphology (NORMAL) RBC Morph Micro Appear (NORMAL) PT (9.9-12.6) secs INR (0.8-1.2) Sodium 137 (135-145) mmol/L Potassium 3.5 (3.5-5.0) mmol/L Chloride 105 (101-111) mmol/L Carbon Dioxide 21 (21-32) mmol/L Anion Gap 11.0 (6-13) BUN 16 (6-20) mg/dL Creatinine 1.2 (0.6-1.2) mg/dL Estimated GFR (MDRD) 59 L (>89) Glucose 97 (70-100) mg/dL Calcium 9.1 (8.5-10.3) mg/dL Magnesium (1.7-2.8) mg/dL Iron (45-182) ug/dL TIBC (250-450) ug/dL % Saturation (20-50) % Transferrin (180-329) mg/dL Ferritin (23.9-336.2) ng/mL Total Bilirubin 0.7 (0.2-1.0) mg/dL AST 23 (10-42) IU/L ALT 14 (10-60) IU/L Alkaline Phosphatase 97 (42-121) IU/L Troponin I High Sens 57.6 H* (2.3-19.7) ng/L B-Natriuretic Peptide 1246 H (5-100) pg/mL Total Protein 7.9 (6.7-8.2) g/dL Albumin 3.8 (3.2-5.5) g/dL Globulin 4.1 (2.1-4.2) g/dL Albumin/Globulin Ratio 0.9 L (1.0-2.2) Lipase 23 (22-51) U/L Nasal Adenovirus (PCR) Nasal B. parapertussis DNA (PCR) Nasal Coronavir 229E PCR Nasal Coronavir HKU1 PCR Nasal Coronavir NL63 PCR Nasal Coronavir OC43 PCR Nasal Enterovir/Rhinovir PCR Nasal Influenza B PCR Nasal Influenza A PCR Nasal Parainfluen 1 PCR Nasal Parainfluen 2 PCR Nasal Parainfluen 3 PCR Nasal Parainfluen 4 PCR Nasal RSV (PCR) Nasal B.pertussis DNA PCR Nasal C.pneumoniae (PCR) James Human Metapneumo PCR Nasal M.pneumoniae (PCR) Nasal SARS-CoV-2 (PCR) 08/26/21 Range/Units 17:49 WBC 12.2 H (4.8-10.8) x10^3/uL RBC 5.24 (4.70-6.10) 10^6/uL Hgb 11.2 L (14.0-18.0) g/dL Hct 40.0 L (42.0-52.0) % MCV 76.3 L (80.0-94.0) fL MCH 21.4 L (27.0-31.0) pg MCHC 28.0 L (32.0-36.0) g/dL RDW 26.7 H (12.0-15.0) % Plt Count 584 H (130-450) 10^3/uL MPV 8.9 (7.4-11.4) fL Neut # (Auto) 8.9 H (1.5-6.6) 10^3/uL Lymph # (Auto) 1.9 (1.5-3.5) 10^3/uL [place] # (Auto) 0.9 (0.0-1.0) 10^3/uL Eos # (Auto) 0.4 (0.0-0.7) 10^3/uL Baso # (Auto) 0.1 (0.0-0.1) 10^3/uL Absolute Nucleated RBC 0.00 x10^3/uL Nucleated RBC % 0.0 /100WBC Manual Slide Review Indicated WBC Morphology (NORMAL) Platelet Estimate INCREASED (>450,000) (NORMAL) Platelet Morphology NORMAL APPEARANCE (NORMAL) RBC Morph Micro Appear 1+ HYPOCHROMASIA (NORMAL) PT (9.9-12.6) secs INR (0.8-1.2) Sodium (135-145) mmol/L Potassium (3.5-5.0) mmol/L Chloride (101-111) mmol/L Carbon Dioxide (21-32) mmol/L Anion Gap (6-13) BUN (6-20) mg/dL Creatinine (0.6-1.2) mg/dL Estimated GFR (MDRD) (>89) Glucose (70-100) mg/dL Calcium (8.5-10.3) mg/dL Magnesium (1.7-2.8) mg/dL Iron (45-182) ug/dL TIBC (250-450) ug/dL % Saturation (20-50) % Transferrin (180-329) mg/dL Ferritin (23.9-336.2) ng/mL Total Bilirubin (0.2-1.0) mg/dL AST (10-42) IU/L ALT (10-60) IU/L Alkaline Phosphatase (42-121) IU/L Troponin I High Sens (2.3-19.7) ng/L B-Natriuretic Peptide (5-100) pg/mL Total Protein (6.7-8.2) g/dL Albumin (3.2-5.5) g/dL Globulin (2.1-4.2) g/dL Albumin/Globulin Ratio (1.0-2.2) Lipase (22-51) U/L Nasal Adenovirus (PCR) Nasal B. parapertussis DNA (PCR) Nasal Coronavir 229E PCR Nasal Coronavir HKU1 PCR Nasal Coronavir NL63 PCR Nasal Coronavir OC43 PCR Nasal Enterovir/Rhinovir PCR Nasal Influenza B PCR Nasal Influenza A PCR Nasal Parainfluen 1 PCR Nasal Parainfluen 2 PCR Nasal Parainfluen 3 PCR Nasal Parainfluen 4 PCR Nasal RSV (PCR) Nasal B.pertussis DNA PCR Nasal C.pneumoniae (PCR) James Human Metapneumo PCR Nasal M.pneumoniae (PCR) Nasal SARS-CoV-2 (PCR) ABX Reporting Has patient been on IV antibiotics over the past 48 hours?: No Assessment/Plan - Problem List (1) Congestive heart failure Impression: Presentation on admission is that of worsening dyspnea on exertion, pedal edema and he appears to be in acute congestive heart failure. He has no previous diagnosis of congestive heart failure. The dyspnea on exertion is actually been going on for months and he has decreased functionality with that. He cannot walk across a room in his trailer anymore.. It is unclear this is diastolic or systolic dysfunction. His BNP was elevated and his admission imaging reveals pulmonary edema. Although he is not hypoxic at rest, he does become hypoxic with activity. He has been admitted for IV diuresis. He has had 3 or 4 large voids. He still feels like he is still short of breath but better.BNP was 1246 on admission. Today it is 1304. Creatinine was 1.2. Today it is 1.3. Plan: Change to inpatient status Echocardiogram on Sunday (today is Sunday) Continue Lasix 40 mg and increase to twice daily. Continue low-sodium diet. Trend weights, intake and output, BNP, labs. Qualifiers: Heart failure type: unspecified Heart failure chronicity: acute Qualified Code(s): I50.9 - Heart failure, unspecified (2) Elevated troponin Conclusion/Plan: His troponin is mildly elevated in the 50s and repeat 2 hours later was only slightly increased. Suspect is likely demand ischemia from his heart failure given he has no chest pain and his EKG does not suggest ischemia. We will recommend an outpatient stress test on discharge since we cannot obtain one over the weekend. (3) 1st degree AV block Conclusion/Plan: His repeat EKG revealed a sinus rhythm with a prolonged NM interval as well as PVC's and PAC's. We will monitor on telemetry and maintain his potassium greater than 4. We will check a magnesium as well. If his PVCs and PACs continued we will start him on a beta-nithya. (4) Back pain Conclusion/Plan: He has new back pain over the past week that is nonradiating. But in retrospect he says that he has been having back pain for weeks now. Its only been this last week that is been so bad. It is different compared to his baseline scia kole. Suspect this is musculoskeletal. He has no lumbar or paraspinal tenderness. We will trial Robaxin. Plan: We will get plain film, flexion extension if possible Qualifiers: Back pain location: low back pain (5) Thrombocytosis Conclusion/Plan: His platelet count is elevated and this has also been present in the past. I do note his MCV is decreased and he is slightly anemic so I suspect related to iron deficiency anemia. Review of prior labs revealed that his MCV/hemoglobin was also decreased when his platelet count was elevated and his platelet count improved when his MCV/hemoglobin was within normal limits. He is currently in the process of being evaluated for iron deficiency anemia. Please see below. (6) Iron deficiency anemia Conclusion/Plan: Etiology of this is not clear but he states this is chronic for him he takes oral iron daily. His MCV is still decreasing and he has thrombocytosis. Iron studies show a ferritin of 11.9. Iron is 16. TIBC 458. Percent saturation 3. Transferrin 327. He is in the process of being referred for local clinic evaluation with a colonoscopy and EGD but the authorization was delayed. As such he now has to get a new authorization. Plan: Iron infusion. jose anson has him at ~730 mg needed. Qualifiers: Qualified Code(s): I50.9 - Heart failure, unspecified
--- NOTE | 2021-08-27 15:24 | PHARMACY PROGRESS NOTE ---
- Best Possible Medication History Admit Date and Time: 08/27/21 1059 Processed by: Pharmacy Medication History completed: Yes Patient Interview: Completed Secondary Source(s): Pharmacy records, Insurance records As the person ultimately responsible for medication therapy, providers are able to order a medication from an existing home medication list in [facility] via the "Reconcile Routine" prior to Confirmation of that medication by microcomputer support specialist. Such practice is discouraged except when the physician, in their clinical judgment, deems that a medical need exists for a medication without regard to previous use.
[2021-08-27] MEDS ORDERED: IRON DEXTRAN 1,000 MG in SODIUM CHLORIDE 0.9% 250 ML IV ONE (16:30)
[2021-08-27] MEDS: FUROSEMIDE 40 MG/4 ML VIAL IVP SCH (16:35)
[2021-08-28] MEDS: SODIUM CHLORIDE FLUSH 0.9% 10 ML SYRINGE IVP SCH ×3 (00:40→17:03)
[2021-08-28] MEDS: methocarbamoL 500 MG TABLET PO PRN ×4 (03:21→23:04)
[2021-08-28 05:53] LABS: BASOPHILS # (AUTO) 0.1 10^3/uL (0.0-0.1); BASOPHILS % (AUTO) 0.9 %; EOSINOPHILS # (AUTO) 0.7 10^3/uL (0.0-0.7); EOSINOPHILS % (AUTO) 7.2 %; HCT - HEMATOCRIT 41.1 % (42.0-52.0); HGB - HEMOGLOBIN 11.9 g/dL (14.0-18.0); LYMPHOCYTES % (AUTO) 19.2 %; MEAN CORPUSCULAR HEMOGLOBIN 21.5 pg (27.0-31.0); MEAN CORPUSCULAR VOLUME 74.2 fL (80.0-94.0); MEAN PLATELET VOLUME 9.1 fL (7.4-11.4); MONOCYTES # (AUTO) 0.9 10^3/uL (0.0-1.0); MONOCYTES % (AUTO) 8.9 %; NEUTROPHILS # (AUTO) 6.5 10^3/uL (1.5-6.6); NEUTROPHILS % (AUTO) 63.4 %; PLT - PLATELET COUNT 623 10^3/uL (130-450); RED BLOOD COUNT 5.54 10^6/uL (4.70-6.10); RED CELL DISTRIBUTION WIDTH 26.3 % (12.0-15.0); WHITE BLOOD COUNT 10.2 x10^3/uL (4.8-10.8)
[2021-08-28 05:56] LABS: SLIDE REVIEW? Indicated
[2021-08-28 06:25] LABS: PLATELET ESTIMATE, MANUAL INCREASED (>450,000) (NORMAL); PLATELET MORPHOLOGY NORMAL APPEARANCE (NORMAL); RBC MORPHOLOGY (MULTIPLE) 3+ ANISOCYTOSIS (NORMAL); WBC MORPHOLOGY (MULTIPLE) NORMAL APPEARANCE (NORMAL)
[2021-08-28 06:26] LABS: CALCIUM 8.8 mg/dL (8.5-10.3); CREATININE 1.3 mg/dL (0.6-1.2); POTASSIUM 3.1 mmol/L (3.5-5.0)
[2021-08-28] MEDS: FUROSEMIDE 40 MG/4 ML VIAL IVP SCH (06:49)
--- NOTE | 2021-08-28 07:26 | PROVIDER PROGRESS NOTE ---
Subjective - Prog Note Date Prog Note Date: 08/28/21 Prog Note Time: 07:25 - Subjective Subjective: overnight had NSVT again. Already on metoprolol. We are awaiting ECHO for tomorrow., his sob has improved but still w sig fatigue and matthews. his BUN is coming up with the lasix 40 IV bid. Current Medications - Current Medications Current Medications: Active Medications Acetaminophen (Acetaminophen 325 Mg Tablet) 650 mg PO Q4HR PRN PRN Reason: Pain 1 to 4 Last Admin: 08/27/21 22:49 Dose: 650 mg Documented by: Enoxaparin Sodium (Enoxaparin 40 Mg/0.4 Ml Syringe) 40 mg SUBQ DAILY [facility] Last Admin: 08/27/21 09:51 Dose: 40 mg Documented by: Ferrous Sulfate (Ferrous Sulfate 325 Mg Tablet) 325 mg PO BIDWM [facility] Last Admin: 08/27/21 18:08 Dose: 325 mg Documented by: Furosemide (Furosemide 20 Mg Tablet) 20 mg PO BIDDIURETIC [facility] Methocarbamol (Methocarbamol 500 Mg Tablet) 500 mg PO Q6HR PRN PRN Reason: Spasms Last Admin: 08/28/21 03:21 Dose: 500 mg Documented by: Metoprolol Tartrate (Metoprolol Tartrate 50 Mg Tablet) 50 mg PO BID [facility] Ondansetron HCl (Ondansetron Odt 4 Mg Tablet) 4 mg TL Q6HR PRN PRN Reason: Nausea / Vomiting Ondansetron HCl (Ondansetron 4 Mg/2 Ml Vial) 4 mg IVP Q6HR PRN PRN Reason: Nausea / Vomiting Potassium Chloride (Potassium Chloride 20 Meq/15 Ml Udc) 40 meq PO ONCE ONE Stop: 08/28/21 08:01 Sodium Chloride (Sodium Chloride Flush 0.9% 10 Ml Syringe) 10 ml IVP PRN PRN PRN Reason: NEEDED PER PROVIDER ORDERS Last Admin: 08/28/21 06:49 Dose: 10 ml Documented by: Sodium Chloride (Sodium Chloride Flush 0.9% 10 Ml Syringe) 10 ml IVP 0100,0900,1700 [facility] Last Admin: 08/28/21 06:49 Dose: 10 ml Documented by: Doxylamine Succinate [Unisom] 25 mg PO QPM PRN 08/27/21 Ferrous Sulfate 325 mg PO DAILY 08/27/21 Ibuprofen [Advil] 800 mg PO TID PRN 08/27/21 Multivitamin [Theragran] 1 each PO DAILY 08/27/21 allopurinoL [Allopurinol] 300 mg PO DAILY 08/27/21 Objective - Vital Signs/Intake & Output Reviewed Vital Signs: Yes Vital Signs: Vital Signs x48h Temp Pulse Resp BP BP Pulse Ox 08/28/21 03:00 36.3 C L 89 16 133/88 H 95 08/28/21 00:33 36.8 C 89 18 143/87 H 94 Intake & Output: Intake & Output 08/25/21 08/26/21 08/27/21 08/28/21 23:59 23:59 23:59 23:59 Intake Total 3270.0 300 Output Total 3500 5025 300 Balance -3500 -1755.0 0 - Lab Results Fish Bones: 08/28/21 05:40 08/28/21 06:10 Other Labs: Lab Results x24hrs 08/28/21 08/28/21 08/28/21 Range/Units 06:10 05:40 05:40 WBC 10.2 (4.8-10.8) x10^3/uL RBC 5.54 (4.70-6.10) 10^6/uL Hgb 11.9 L (14.0-18.0) g/dL Hct 41.1 L (42.0-52.0) % MCV 74.2 L (80.0-94.0) fL MCH 21.5 L (27.0-31.0) pg MCHC 29.0 L (32.0-36.0) g/dL RDW 26.3 H (12.0-15.0) % Plt Count 623 H (130-450) 10^3/uL MPV 9.1 (7.4-11.4) fL Neut # (Auto) 6.5 (1.5-6.6) 10^3/uL Lymph # (Auto) 2.0 (1.5-3.5) 10^3/uL [place] # (Auto) 0.9 (0.0-1.0) 10^3/uL Eos # (Auto) 0.7 (0.0-0.7) 10^3/uL Baso # (Auto) 0.1 (0.0-0.1) 10^3/uL Absolute Nucleated RBC 0.00 x10^3/uL Nucleated RBC % 0.0 /100WBC Manual Slide Review Indicated WBC Morphology NORMAL APPEARANCE (NORMAL) Platelet Estimate INCREASED (>450,000) (NORMAL) Platelet Morphology NORMAL APPEARANCE (NORMAL) RBC Morph Micro Appear 3+ ANISOCYTOSIS (NORMAL) Sodium 138 (135-145) mmol/L Potassium 3.1 L (3.5-5.0) mmol/L Chloride 101 (101-111) mmol/L Carbon Dioxide 26 (21-32) mmol/L Anion Gap 11.0 (6-13) BUN 23 H (6-20) mg/dL Creatinine 1.3 H (0.6-1.2) mg/dL Estimated GFR (MDRD) 54 L (>89) Glucose 94 (70-100) mg/dL Calcium 8.8 (8.5-10.3) mg/dL B-Natriuretic Peptide 574 H (5-100) pg/mL ABX Reporting Has patient been on IV antibiotics over the past 48 hours?: No Assessment/Plan - Problem List (1) Congestive heart failure Impression: Presentation on admission is that of worsening dyspnea on exertion, pedal edema and he appears to be in acute congestive heart failure. He has no previous diagnosis of congestive heart failure. The dyspnea on exertion is actually been going on for months and he has decreased functionality with that. He cannot walk across a room in his trailer anymore.. It is unclear this is diastolic or systolic dysfunction. His BNP was elevated and his admission imaging reveals pulmonary edema. Although he is not hypoxic at rest, he does become hypoxic with activity. He has been admitted for IV diuresis. He has had 3 or 4 large voids. He still feels like he is still short of breath but better.BNP was 1246 on admission. Today it is 574. Creatinine was 1.2. Today it is 1.3. He is having occasional NSVT Plan: Echocardiogram on 08/28 then probably can be dc'd w new meds of lasix and metoprolol. But needs BOSSMAN depending on findings of echo tomorrow. If EF <35% will need urgent referrral to Cardiology via his [facility] clinic to be evaluated for Cath, and AICD (especially bc of NSVT). Lasix is 40 bid. Tolerating well. Continue low-sodium diet. Trend weights, intake and output, BNP, labs. Qualifiers: Heart failure type: unspecified Heart failure chronicity: acute Qualified Code(s): I50.9 - Heart failure, unspecified (2) Elevated troponin Conclusion/Plan: His troponin is mildly elevated in the 50s and repeat 2 hours later was only slightly increased. Suspect is likely demand ischemia from his heart failure given he has no chest pain and his EKG does not suggest ischemia. We will recommend an outpatient stress test on discharge since we cannot obtain one over the weekend. (3) 1st degree AV block Conclusion/Plan: His repeat EKG revealed a sinus rhythm with a prolonged NM interval as well as PVC's and PAC's. We will monitor on telemetry and maintain his potassium greater than 4. We will check a magnesium as well. His PVCs continue to the point of occasional episodes of nonsustained V. tach that were asymptomatic. The runs were no longer than 2-3 beats. He was started on a beta-nithya. (4) Back pain Conclusion/Plan: He has new back pain over the past week that is nonradiating. But in retrospect he says that he has been having back pain for weeks now. Its only been this last week that is been so bad. It is different compared to his baseline sciatica. Suspect this is musculoskeletal. He has no lumbar or paraspinal tenderness. We will trial Robaxin. Plan: I did get plain films with flexion and extension on August 27. They are stated as "taken" in the electronic medical record but there is no report. Track down those plain films and make sure copies of the reports get sent to his primary care provider which is a [facility] in [place]. Qualifiers: Back pain location: low back pain (5) Thrombocytosis Conclusion/Plan: His platelet count is elevated and this has also been present in the past. I do note his MCV is decreased and he is slightly anemic so I suspect related to iron deficiency anemia. Review of prior labs revealed that his MCV/hemoglobin was also decreased when his platelet count was elevated and his platelet count improved when his MCV/hemoglobin was within normal limits. He is currently in the process of being evaluated for iron deficiency anemia. Please see below. (6) Iron deficiency anemia Conclusion/Plan: Etiology of this is not clear but he states this is chronic for him he takes oral iron daily. His MCV is still decreasing and he has thrombocytosis. Iron studies show a ferritin of 11.9. Iron is 16. TIBC 458. Percent saturation 3. Transferrin 327. He is in the process of being referred for local clinic evaluation with a colonoscopy and EGD but the authorization was delayed. As such he now has to get a new authorization. jose griggs has him at ~730 mg of iron needed. He did receive 1000 mg of iron dextran on August 27. He should be sent home with 325 mg of iron daily. He should also follow-up with the outpatient EGD and colonoscopy. Qualifiers: Qualified Code(s): I50.9 - Heart failure, unspecified Qualifiers: Qualified Code(s): I50.9 - Heart failure, unspecified
[2021-08-28] MEDS ORDERED: POTASSIUM CHLORIDE 20 MEQ/15 ML UDC PO ONE (08:00)
[2021-08-28] MEDS: ENOXAPARIN 40 MG/0.4 ML SYRINGE SUBQ SCH (09:15)
[2021-08-28] MEDS: FERROUS SULFATE 325 MG TABLET PO SCH ×2 (09:15→17:02)
[2021-08-28] MEDS: METOPROLOL TARTRATE 50 MG TABLET PO SCH ×2 (09:16→20:22)
[2021-08-28] MEDS: ACETAMINOPHEN 325 MG TABLET PO PRN ×3 (09:18→23:05)
[2021-08-28] MEDS: FUROSEMIDE 20 MG TABLET PO SCH (13:40)
[2021-08-29] MEDS: SODIUM CHLORIDE FLUSH 0.9% 10 ML SYRINGE IVP SCH ×3 (00:13→17:25)
[2021-08-29 06:02] LABS: BASOPHILS # (AUTO) 0.1 10^3/uL (0.0-0.1); BASOPHILS % (AUTO) 1.1 %; EOSINOPHILS # (AUTO) 0.7 10^3/uL (0.0-0.7); EOSINOPHILS % (AUTO) 7.2 %; HCT - HEMATOCRIT 42.4 % (42.0-52.0); HGB - HEMOGLOBIN 12.3 g/dL (14.0-18.0); LYMPHOCYTES # (AUTO) 1.9 10^3/uL (1.5-3.5); LYMPHOCYTES % (AUTO) 20.2 %; MEAN CORPUSCULAR VOLUME 75.7 fL (80.0-94.0); MEAN PLATELET VOLUME 8.5 fL (7.4-11.4); MONOCYTES # (AUTO) 1.1 10^3/uL (0.0-1.0); NEUTROPHILS # (AUTO) 5.7 10^3/uL (1.5-6.6); NEUTROPHILS % (AUTO) 60.2 %; NRBC ABSOLUTE COUNT (AUTO) 0.02 x10^3/uL; NUCLEATED RED BLOOD CELLS AUTO 0.2 /100WBC; PLT - PLATELET COUNT 599 10^3/uL (130-450); RED CELL DISTRIBUTION WIDTH 25.8 % (12.0-15.0); WHITE BLOOD COUNT 9.5 x10^3/uL (4.8-10.8)
[2021-08-29 06:05] LABS: SLIDE REVIEW? Indicated
[2021-08-29 06:20] LABS: CREATININE 1.3 mg/dL (0.6-1.2); POTASSIUM 3.7 mmol/L (3.5-5.0)
[2021-08-29 06:34] LABS: PLATELET ESTIMATE, MANUAL INCREASED (>450,000) (NORMAL); PLATELET MORPHOLOGY NORMAL APPEARANCE (NORMAL); RBC MORPHOLOGY (MULTIPLE) 2+ ANISOCYTOSIS (NORMAL); WBC MORPHOLOGY (MULTIPLE) NORMAL APPEARANCE (NORMAL)
[2021-08-29] MEDS: FUROSEMIDE 20 MG TABLET PO SCH ×2 (07:12→14:27)
--- NOTE | 2021-08-29 09:13 | XRAY Report ---
PROCEDURE: Lumbar Spine w/Flex/Ext INDICATIONS: back pain for weeks, worse and unable to walk TECHNIQUE: 4 views of the lumbar spine acquired. COMPARISON: None. FINDINGS: Bones: 5 [id number] vertebrae are present. Chronic appearing superior endplate compression fra cture of L1. No other vertebral body fractures. Prominent endplate osteophytes at L1-2. Diffuse disc height loss throughout the lumbar spine, particularly severe at L1-2. Trace retrolisthesis L3 on 4 in the neutral position. There is severe facet arthropathy in the lower lumbar spine. Soft tissues: Overlying bowel gas pattern is normal. No suspicious soft tissue calcifications. Athe rosclerosis of the abdominal aorta. Flexion/extension: Limited range of motion but no change in AP alignment during flexion or extension . IMPRESSION: 1. Multilevel disc height loss, worst at the L1-2 level there are prominent endplate osteophytes as w ell. 2. Severe lower lumbar facet arthropathy. 3. Limited range of motion but no instability on flexion or extension. Reviewed by: Geraldine Mendiola MD on 08/29/2021 9:12 AM PST Approved by: Geraldine Mendiola MD on 08/29/2021 9:12 AM PST Station ID: [id number]
[2021-08-29] MEDS: METOPROLOL TARTRATE 50 MG TABLET PO SCH ×2 (10:08→21:28)
[2021-08-29] MEDS: FERROUS SULFATE 325 MG TABLET PO SCH ×2 (10:10→17:25)
[2021-08-29] MEDS: ENOXAPARIN 40 MG/0.4 ML SYRINGE SUBQ SCH (10:10)
[2021-08-29] MEDS: ACETAMINOPHEN 325 MG TABLET PO PRN ×2 (14:27→21:26)
--- NOTE | 2021-08-29 14:46 | PROVIDER PROGRESS NOTE ---
Assessment/Plan - Problem List (1) Congestive heart failure Qualifiers: Qualified Code(s): I50.9 - Heart failure, unspecified Assessment/Plan: New onset. 2D echocardiogram showed overall left ventricular systolic function is moderately to severely globally impaired with an EF of 30 to 35%. There was no obvious regional wall motion abnormality seen. Moderate right ventricular enlargement noted. Metoprolol tartrate 50 mg p.o. twice daily Lasix 20 mg p.o. twice daily Patient was evaluated by physical therapy today and determined to be in need of a retirement facility. He was very unsteady on his feet. Also his oxygen saturation dropped to 85% on room air with activity (2) Bilateral knee pain Assessment/Plan: Likely secondary to degenerative joint disease/ osteoarthritis. Patient has been informed he would need knee replacements. He is to follow-up with orthopedic surgery in the outpatient setting once his medical status has been optimized. Pain management with Tylenol and Robaxin as needed (3) Back pain Qualifiers: Back pain location: low back pain Assessment/Plan: Chronic. Pain management with Tylenol and/or Robaxin as needed (4) Iron deficiency anemia Assessment/Plan: Hemoglobin today ws 12.3. Iron level on 08/27/2021 was 16, TIBC 458, %Saturation 3 and ferritin 11.9 On ferrous sulfate 325 mg p.o. twice daily (5) Thrombocytosis Assessment/Plan: Platelet count 599. We will continue to monitor. - Current Meds Current Meds: Current Medications Generic Name Dose Route Start Last Admin Trade Name Freq PRN Reason Stop Dose Admin Acetaminophen 650 mg 08/26/21 19:49 08/29/21 14:27 Acetaminophen 325 Mg Tablet PO 650 mg Q4HR PRN Administration Pain 1 to 4 Enoxaparin Sodium 40 mg 08/27/21 09:00 08/29/21 10:10 Enoxaparin 40 Mg/0.4 Ml Syringe SUBQ 40 mg DAILY [facility] Administration Ferrous Sulfate 325 mg 08/27/21 08:00 08/29/21 10:10 Ferrous Sulfate 325 Mg Tablet PO 325 mg BIDWM [facility] Administration Furosemide 20 mg 08/28/21 14:00 08/29/21 14:27 Furosemide 20 Mg Tablet PO 20 mg BIDDIURETIC [facility] Administration Methocarbamol 500 mg 08/26/21 21:42 08/28/21 23:04 Methocarbamol 500 Mg Tablet PO 500 mg Q6HR PRN Administration Spasms Metoprolol Tartrate 50 mg 08/28/21 09:00 08/29/21 10:08 Metoprolol Tartrate 50 Mg Tablet PO 50 mg BID [facility] Administration Sodium Chloride 10 ml 08/26/21 19:49 08/28/21 06:49 Sodium Chloride Flush 0.9% 10 Ml Syringe IVP 10 ml PRN PRN Administration NEEDED PER PROVIDER ORDERS Sodium Chloride 10 ml 08/27/21 01:00 08/29/21 10:11 Sodium Chloride Flush 0.9% 10 Ml Syringe IVP 10 ml 0100,0900,1700 [facility] Administration - Lab Result Fish Bone Diagrams: 08/29/21 05:53 08/29/21 05:53 - Additional Planning My Orders: My Active Orders 08/29/21 Evaluate and Treat PT [PT] Routine Subjective - Subjective Patient Reports: Other (He was resting comfortably in bed at time of exam breathing comfortably on room air. He was able to carry out a conversation with no difficulties. Complained of bilateral knee pain and right shoulder pain.) Objective Vital Signs: Vital Signs - 24 hr 08/28/21 08/28/21 08/28/21 16:22 20:10 20:22 Temperature 36.3 C L 36.4 C L Heart Rate [ Activity] Heart Rate [ 90 59 L Brachial] Heart Rate [ Sitting] Respiratory 16 16 Rate Blood Pressure 111/64 Blood Pressure [Activity] Blood Pressure 104/83 H [Left Brachial artery] Blood Pressure 111/70 [Right Brachial artery] Blood Pressure [Sitting] O2 Saturation 92 93 08/29/21 08/29/21 08/29/21 01:00 05:00 07:39 Temperature 36.6 C 36.5 C 36.4 C L Heart Rate [ Activity] Heart Rate [ 61 85 Brachial] Heart Rate [ Sitting] Respiratory 18 20 Rate Blood Pressure Blood Pressure [Activity] Blood Pressure 112/74 [Left Brachial artery] Blood Pressure 107/67 [Right Brachial artery] Blood Pressure [Sitting] O2 Saturation 95 94 08/29/21 08/29/21 08/29/21 07:54 10:08 10:30 Temperature Heart Rate [ 97 Activity] Heart Rate [ 82 Brachial] Heart Rate [ 85 Sitting] Respiratory 20 Rate Blood Pressure 129/90 H Blood Pressure 112/76 [Activity] Blood Pressure 129/84 H [Left Brachial artery] Blood Pressure [Right Brachial artery] Blood Pressure 116/83 H [Sitting] O2 Saturation 92 08/29/21 13:00 Temperature 36.2 C L Heart Rate [ Activity] Heart Rate [ 73 Brachial] Heart Rate [ Sitting] Respiratory 20 Rate Blood Pressure Blood Pressure [Activity] Blood Pressure [Left Brachial artery] Blood Pressure 108/73 [Right Brachial artery] Blood Pressure [Sitting] O2 Saturation 95 Oxygen O2 Source Room air I&O (Last 24 Hrs): Intake and Output Totals x24h 08/27/21 08/28/21 08/29/21 23:59 23:59 23:59 Intake Total 3270.0 1320 750 Output Total 5025 3000 1075 Balance -1755.0 -1680 -325 General: Alert, Oriented x3, Mild distress (knees) HEENT: PERRLA, EOMI Neck: Supple, No JVD Neuro: Alert, Non Focal, Oriented Times 3 Cardiovascular: Regular rate, No murmurs Respiratory: Chest non-tender, No respiratory distress, Breath sounds nml Abdomen: Normal bowel sounds, Soft, No tenderness, No masses Extremities: No clubbing, No cyanosis, No edema, Other (bilateral knee pain) Skin: No rashes - Results Results: Laboratory Results WBC 9.5 x10^3/uL (4.8-10.8) 08/29/21 05:53 RBC 5.60 10^6/uL (4.70-6.10) 08/29/21 05:53 Hgb 12.3 g/dL (14.0-18.0) L 08/29/21 05:53 Hct 42.4 % (42.0-52.0) 08/29/21 05:53 MCV 75.7 fL (80.0-94.0) L 08/29/21 05:53 MCH 22.0 pg (27.0-31.0) L 08/29/21 05:53 MCHC 29.0 g/dL (32.0-36.0) L 08/29/21 05:53 RDW 25.8 % (12.0-15.0) H 08/29/21 05:53 Plt Count 599 10^3/uL (130-450) H 08/29/21 05:53 MPV 8.5 fL (7.4-11.4) 08/29/21 05:53 Neut # (Auto) 5.7 10^3/uL (1.5-6.6) 08/29/21 05:53 Lymph # (Auto) 1.9 10^3/uL (1.5-3.5) 08/29/21 05:53 [place] # (Auto) 1.1 10^3/uL (0.0-1.0) H 08/29/21 05:53 Eos # (Auto) 0.7 10^3/uL (0.0-0.7) 08/29/21 05:53 Baso # (Auto) 0.1 10^3/uL (0.0-0.1) 08/29/21 05:53 Absolute Nucleated RBC 0.02 x10^3/uL 08/29/21 05:53 Nucleated RBC % 0.2 /100WBC 08/29/21 05:53 Manual Slide Review Indicated 08/29/21 05:53 WBC Morphology NORMAL APPEARANCE (NORMAL) 08/29/21 05:53 Platelet Estimate INCREASED (>450,000) (NORMAL) 08/29/21 05:53 Platelet Morphology NORMAL APPEARANCE (NORMAL) 08/29/21 05:53 RBC Morph Micro Appear 2+ ANISOCYTOSIS (NORMAL) 08/29/21 05:53 PT 16.8 secs (9.9-12.6) H 08/26/21 18:04 INR 1.5 (0.8-1.2) H 08/26/21 18:04 Sodium 138 mmol/L (135-145) 08/29/21 05:53 Potassium 3.7 mmol/L (3.5-5.0) 08/29/21 05:53 Chloride 99 mmol/L (101-111) L 08/29/21 05:53 Carbon Dioxide 28 mmol/L (21-32) 08/29/21 05:53 Anion Gap 11.0 (6-13) 08/29/21 05:53 BUN 23 mg/dL (6-20) H 08/29/21 05:53 Creatinine 1.3 mg/dL (0.6-1.2) H 08/29/21 05:53 Estimated GFR (MDRD) 54 (>89) L 08/29/21 05:53 Glucose 91 mg/dL (70-100) 08/29/21 05:53 Calcium 9.0 mg/dL (8.5-10.3) 08/29/21 05:53 Magnesium 2.1 mg/dL (1.7-2.8) 08/26/21 17:49 Iron 16 ug/dL (45-182) L 08/27/21 04:58 TIBC 458 ug/dL (250-450) H 08/27/21 04:58 % Saturation 3 % (20-50) L 08/27/21 04:58 Transferrin 327 mg/dL (180-329) 08/27/21 04:58 Ferritin 11.9 ng/mL (23.9-336.2) L 08/27/21 04:58 Total Bilirubin 0.7 mg/dL (0.2-1.0) 08/26/21 17:49 AST 23 IU/L (10-42) 08/26/21 17:49 ALT 14 IU/L (10-60) 08/26/21 17:49 Alkaline Phosphatase 97 IU/L (42-121) 08/26/21 17:49 Troponin I High Sens 55.3 ng/L (2.3-19.7) H* 08/26/21 22:52 B-Natriuretic Peptide 489 pg/mL (5-100) H 08/29/21 05:53 Total Protein 7.9 g/dL (6.7-8.2) 08/26/21 17:49 Albumin 3.8 g/dL (3.2-5.5) 08/26/21 17:49 Globulin 4.1 g/dL (2.1-4.2) 08/26/21 17:49 Albumin/Globulin Ratio 0.9 (1.0-2.2) L 08/26/21 17:49 Lipase 23 U/L (22-51) 08/26/21 17:49 Nasal Adenovirus (PCR) NOT DETECTED 08/26/21 19:46 Nasal B. parapertussis DNA (PCR) NOT DETECTED 08/26/21 19:46 Nasal Coronavir 229E PCR NOT DETECTED 08/26/21 19:46 Nasal Coronavir HKU1 PCR NOT DETECTED 08/26/21 19:46 Nasal Coronavir NL63 PCR NOT DETECTED 08/26/21 19:46 Nasal Coronavir OC43 PCR NOT DETECTED 08/26/21 19:46 Nasal Enterovir/Rhinovir PCR NOT DETECTED 08/26/21 19:46 Nasal Influenza B PCR NOT DETECTED 08/26/21 19:46 Nasal Influenza A PCR NOT DETECTED 08/26/21 19:46 Nasal Parainfluen 1 PCR NOT DETECTED 08/26/21 19:46 Nasal Parainfluen 2 PCR NOT DETECTED 08/26/21 19:46 Nasal Parainfluen 3 PCR NOT DETECTED 08/26/21 19:46 Nasal Parainfluen 4 PCR NOT DETECTED 08/26/21 19:46 Nasal RSV (PCR) NOT DETECTED 08/26/21 19:46 Nasal B.pertussis DNA PCR NOT DETECTED 08/26/21 19:46 Nasal C.pneumoniae (PCR) NOT DETECTED 08/26/21 19:46 James Human Metapneumo PCR NOT DETECTED 08/26/21 19:46 Nasal M.pneumoniae (PCR) NOT DETECTED 08/26/21 19:46 Nasal SARS-CoV-2 (PCR) NOT DETECTED 08/26/21 19:46 ABX Reporting Has patient been on IV antibiotics over the past 48 hours?: No
[2021-08-29] MEDS: methocarbamoL 500 MG TABLET PO PRN ×2 (16:50→23:03)
[2021-08-30] MEDS: ACETAMINOPHEN 325 MG TABLET PO PRN ×5 (01:31→20:35)
[2021-08-30] MEDS: SODIUM CHLORIDE FLUSH 0.9% 10 ML SYRINGE IVP SCH ×3 (01:33→17:45)
[2021-08-30] MEDS: methocarbamoL 500 MG TABLET PO PRN ×3 (05:09→17:44)
[2021-08-30] MEDS: FUROSEMIDE 20 MG TABLET PO SCH ×2 (05:53→14:33)
[2021-08-30 06:44] LABS: BASOPHILS # (AUTO) 0.1 10^3/uL (0.0-0.1); BASOPHILS % (AUTO) 0.5 %; EOSINOPHILS # (AUTO) 0.5 10^3/uL (0.0-0.7); EOSINOPHILS % (AUTO) 3.9 %; HGB - HEMOGLOBIN 12.1 g/dL (14.0-18.0); LYMPHOCYTES # (AUTO) 1.4 10^3/uL (1.5-3.5); LYMPHOCYTES % (AUTO) 12.5 %; MEAN CORPUSCULAR HEMOGLOBIN 21.8 pg (27.0-31.0); MEAN CORPUSCULAR HGB CONC 28.8 g/dL (32.0-36.0); MEAN CORPUSCULAR VOLUME 75.8 fL (80.0-94.0); MEAN PLATELET VOLUME 8.6 fL (7.4-11.4); MONOCYTES # (AUTO) 1.3 10^3/uL (0.0-1.0); MONOCYTES % (AUTO) 11.1 %; NEUTROPHILS # (AUTO) 8.2 10^3/uL (1.5-6.6); NEUTROPHILS % (AUTO) 71.6 %; NRBC ABSOLUTE COUNT (AUTO) 0.03 x10^3/uL; NUCLEATED RED BLOOD CELLS AUTO 0.3 /100WBC; PLT - PLATELET COUNT 622 10^3/uL (130-450); RED BLOOD COUNT 5.54 10^6/uL (4.70-6.10); WHITE BLOOD COUNT 11.5 x10^3/uL (4.8-10.8)
[2021-08-30 06:50] LABS: SLIDE REVIEW? Indicated
[2021-08-30 06:52] LABS: CALCIUM 9.2 mg/dL (8.5-10.3); CREATININE 1.1 mg/dL (0.6-1.2); POTASSIUM 3.6 mmol/L (3.5-5.0)
[2021-08-30 08:54] LABS: PLATELET ESTIMATE, MANUAL INCREASED (>450,000) (NORMAL); PLATELET MORPHOLOGY NORMAL APPEARANCE (NORMAL)
[2021-08-30] MEDS: FERROUS SULFATE 325 MG TABLET PO SCH ×2 (10:55→17:44)
[2021-08-30] MEDS: METOPROLOL TARTRATE 50 MG TABLET PO SCH ×2 (10:55→20:35)
[2021-08-30] MEDS: ENOXAPARIN 40 MG/0.4 ML SYRINGE SUBQ SCH (10:55)
--- NOTE | 2021-08-30 12:57 | PROVIDER PROGRESS NOTE ---
Assessment/Plan - Problem List (1) Congestive heart failure Qualifiers: Qualified Code(s): I50.9 - Heart failure, unspecified Assessment/Plan: New onset. 2D echocardiogram showed overall left ventricular systolic function is moderately to severely globally impaired with an EF of 30 to 35%. There was no obvious regional wall motion abnormality seen. Moderate right ventricular enlargement noted. Metoprolol tartrate 50 mg p.o. twice daily Lasix 20 mg p.o. twice daily Lisinopril 5 mg p.o. daily was added to patient's medication. Patient was evaluated by physical therapy and respiratory therapy. Oxygen desaturation study was repeated. Patient was deemed not to need supplemental oxygen. He will be discharged to [facility] for rehab on 08/17 (2) Bilateral knee pain Assessment/Plan: Likely secondary to degenerative joint disease/ osteoarthritis. Patient has been informed he would need knee replacements. He is to follow-up with orthopedic surgery in the outpatient setting once his medical status has been optimized. Pain management with Tylenol and Robaxin as needed (3) Back pain Qualifiers: Back pain location: low back pain Assessment/Plan: Chronic. Pain management with Tylenol and/or Robaxin as needed (4) Iron deficiency anemia Assessment/Plan: Hemoglobin today ws 12.1. Iron level on 08/27/2021 was 16, TIBC 458, %Saturation 3 and ferritin 11.9 On ferrous sulfate 325 mg p.o. twice daily - Current Meds Current Meds: Current Medications Generic Name Dose Route Start Last Admin Trade Name Freq PRN Reason Stop Dose Admin Acetaminophen 650 mg 08/26/21 19:49 08/30/21 11:00 Acetaminophen 325 Mg Tablet PO 650 mg Q4HR PRN Administration Pain 1 to 4 Enoxaparin Sodium 40 mg 08/27/21 09:00 08/30/21 10:55 Enoxaparin 40 Mg/0.4 Ml Syringe SUBQ 40 mg DAILY [facility] Administration Ferrous Sulfate 325 mg 08/27/21 08:00 08/30/21 10:55 Ferrous Sulfate 325 Mg Tablet PO 325 mg BIDWM [facility] Administration Furosemide 20 mg 08/28/21 14:00 08/30/21 05:53 Furosemide 20 Mg Tablet PO 20 mg BIDDIURETIC [facility] Administration Methocarbamol 500 mg 08/26/21 21:42 08/30/21 11:09 Methocarbamol 500 Mg Tablet PO 500 mg Q6HR PRN Administration Spasms Metoprolol Tartrate 50 mg 08/28/21 09:00 08/30/21 10:55 Metoprolol Tartrate 50 Mg Tablet PO 50 mg BID [facility] Administration Sodium Chloride 10 ml 08/26/21 19:49 08/28/21 06:49 Sodium Chloride Flush 0.9% 10 Ml Syringe IVP 10 ml PRN PRN Administration NEEDED PER PROVIDER ORDERS Sodium Chloride 10 ml 08/27/21 01:00 08/30/21 11:00 Sodium Chloride Flush 0.9% 10 Ml Syringe IVP 10 ml 0100,0900,1700 [facility] Administration - Lab Result Fish Bone Diagrams: 08/30/21 06:30 08/30/21 06:30 - Additional Planning My Orders: My Active Orders 08/29/21 15:44 Fluid Restriction [RC] ONCE 08/30/21 07:24 Oxygen Desat. Study w/Exercise [RC] .ONCE 08/30/21 12:29 RESPIRATORY PCR PANEL Routine Subjective - Subjective Patient Reports: Other (Patient was resting comfortably in bedside chair. He is breathing comfortably on room air. He does not have conversational dyspnea. He complains of bilateral knee pain and right shoulder pain.) Objective Vital Signs: Vital Signs - 24 hr 08/29/21 08/29/21 08/29/21 13:00 17:00 19:43 Temperature 36.2 C L 36.6 C 36.4 C L Heart Rate Heart Rate [ 73 85 89 Brachial] Respiratory 20 16 16 Rate Blood Pressure Blood Pressure 108/73 108/75 120/75 [Right Brachial artery] O2 Saturation 95 93 97 08/29/21 08/30/21 08/30/21 21:28 01:14 04:50 Temperature 36.4 C L 36.9 C Heart Rate Heart Rate [ 59 L 78 Brachial] Respiratory 18 18 Rate Blood Pressure 110/75 Blood Pressure 102/69 124/81 H [Right Brachial artery] O2 Saturation 96 96 08/30/21 08/30/21 08/30/21 07:45 10:55 11:15 Temperature 36.1 C L Heart Rate 110 H Heart Rate [ 76 Brachial] Respiratory 18 Rate Blood Pressure 118/81 H Blood Pressure 107/72 [Right Brachial artery] O2 Saturation 94 08/30/21 12:05 Temperature 36.4 C L Heart Rate Heart Rate [ 93 Brachial] Respiratory 18 Rate Blood Pressure Blood Pressure 114/81 H [Right Brachial artery] O2 Saturation 96 Oxygen O2 Source Room air I&O (Last 24 Hrs): Intake and Output Totals x24h 08/28/21 08/29/21 08/30/21 23:59 23:59 23:59 Intake Total 1320 1540 640 Output Total 3000 6732 1475 Balance -2101 -308 -571 General: Alert, Oriented x3, Moderate distress HEENT: PERRLA, EOMI Neck: Supple, No JVD Neuro: Alert, Non Focal, Oriented Times 3 Cardiovascular: Regular rate, No murmurs Respiratory: Chest non-tender, No respiratory distress, Breath sounds nml Abdomen: Normal bowel sounds, Soft, No tenderness Extremities: No clubbing, No edema, Other (bilateral knee pain) Skin: No rashes, No breakdown, No significant lesion - Results Results: Laboratory Results WBC 11.5 x10^3/uL (4.8-10.8) H 08/30/21 06:30 RBC 5.54 10^6/uL (4.70-6.10) 08/30/21 06:30 Hgb 12.1 g/dL (14.0-18.0) L 08/30/21 06:30 Hct 42.0 % (42.0-52.0) 08/30/21 06:30 MCV 75.8 fL (80.0-94.0) L 08/30/21 06:30 MCH 21.8 pg (27.0-31.0) L 08/30/21 06:30 MCHC 28.8 g/dL (32.0-36.0) L 08/30/21 06:30 RDW 26.0 % (12.0-15.0) H 08/30/21 06:30 Plt Count 622 10^3/uL (130-450) H 08/30/21 06:30 MPV 8.6 fL (7.4-11.4) 08/30/21 06:30 Neut # (Auto) 8.2 10^3/uL (1.5-6.6) H 08/30/21 06:30 Lymph # (Auto) 1.4 10^3/uL (1.5-3.5) L 08/30/21 06:30 [place] # (Auto) 1.3 10^3/uL (0.0-1.0) H 08/30/21 06:30 Eos # (Auto) 0.5 10^3/uL (0.0-0.7) 08/30/21 06:30 Baso # (Auto) 0.1 10^3/uL (0.0-0.1) 08/30/21 06:30 Absolute Nucleated RBC 0.03 x10^3/uL 08/30/21 06:30 Nucleated RBC % 0.3 /100WBC 08/30/21 06:30 Manual Slide Review Indicated 08/30/21 06:30 WBC Morphology NORMAL APPEARANCE (NORMAL) 08/29/21 05:53 Platelet Estimate INCREASED (>450,000) (NORMAL) 08/30/21 06:30 Platelet Morphology NORMAL APPEARANCE (NORMAL) 08/30/21 06:30 RBC Morph Micro Appear 2+ ANISOCYTOSIS (NORMAL) 1+ HYPOCHROMASIA (NORMAL) 08/30/21 06:30 RBC Morph Micro Appear 2+ ANISOCYTOSIS (NORMAL) 1+ HYPOCHROMASIA (NORMAL) 08/30/21 06:30 PT 16.8 secs (9.9-12.6) H 08/26/21 18:04 INR 1.5 (0.8-1.2) H 08/26/21 18:04 Sodium 136 mmol/L (135-145) 08/30/21 06:30 Potassium 3.6 mmol/L (3.5-5.0) 08/30/21 06:30 Chloride 100 mmol/L (101-111) L 08/30/21 06:30 Carbon Dioxide 28 mmol/L (21-32) 08/30/21 06:30 Anion Gap 8.0 (6-13) 08/30/21 06:30 BUN 22 mg/dL (6-20) H 08/30/21 06:30 Creatinine 1.1 mg/dL (0.6-1.2) 08/30/21 06:30 Estimated GFR (MDRD) 65 (>89) L 08/30/21 06:30 Glucose 99 mg/dL (70-100) 08/30/21 06:30 Calcium 9.2 mg/dL (8.5-10.3) 08/30/21 06:30 Magnesium 2.1 mg/dL (1.7-2.8) 08/26/21 17:49 Iron 16 ug/dL (45-182) L 08/27/21 04:58 TIBC 458 ug/dL (250-450) H 08/27/21 04:58 % Saturation 3 % (20-50) L 08/27/21 04:58 Transferrin 327 mg/dL (180-329) 08/27/21 04:58 Ferritin 11.9 ng/mL (23.9-336.2) L 08/27/21 04:58 Total Bilirubin 0.7 mg/dL (0.2-1.0) 08/26/21 17:49 AST 23 IU/L (10-42) 08/26/21 17:49 ALT 14 IU/L (10-60) 08/26/21 17:49 Alkaline Phosphatase 97 IU/L (42-121) 08/26/21 17:49 Troponin I High Sens 55.3 ng/L (2.3-19.7) H* 08/26/21 22:52 B-Natriuretic Peptide 443 pg/mL (5-100) H 08/30/21 06:30 Total Protein 7.9 g/dL (6.7-8.2) 08/26/21 17:49 Albumin 3.8 g/dL (3.2-5.5) 08/26/21 17:49 Globulin 4.1 g/dL (2.1-4.2) 08/26/21 17:49 Albumin/Globulin Ratio 0.9 (1.0-2.2) L 08/26/21 17:49 Lipase 23 U/L (22-51) 08/26/21 17:49 Nasal Adenovirus (PCR) NOT DETECTED 08/26/21 19:46 Nasal B. parapertussis DNA (PCR) NOT DETECTED 08/26/21 19:46 Nasal Coronavir 229E PCR NOT DETECTED 08/26/21 19:46 Nasal Coronavir HKU1 PCR NOT DETECTED 08/26/21 19:46 Nasal Coronavir NL63 PCR NOT DETECTED 08/26/21 19:46 Nasal Coronavir OC43 PCR NOT DETECTED 08/26/21 19:46 Nasal Enterovir/Rhinovir PCR NOT DETECTED 08/26/21 19:46 Nasal Influenza B PCR NOT DETECTED 08/26/21 19:46 Nasal Influenza A PCR NOT DETECTED 08/26/21 19:46 Nasal Parainfluen 1 PCR NOT DETECTED 08/26/21 19:46 Nasal Parainfluen 2 PCR NOT DETECTED 08/26/21 19:46 Nasal Parainfluen 3 PCR NOT DETECTED 12 19:46 Nasal Parainfluen 4 PCR NOT DETECTED 08/26/21 19:46 Nasal RSV (PCR) NOT DETECTED 08/26/21 19:46 Nasal B.pertussis DNA PCR NOT DETECTED 08/26/21 19:46 Nasal C.pneumoniae (PCR) NOT DETECTED 08/26/21 19:46 James Human Metapneumo PCR NOT DETECTED 08/26/21 19:46 Nasal M.pneumoniae (PCR) NOT DETECTED 08/26/21 19:46 Nasal SARS-CoV-2 (PCR) NOT DETECTED 08/26/21 19:46 ABX Reporting Has patient been on IV antibiotics over the past 48 hours?: No
[2021-08-30 14:40] LABS: CORONAVIRUS 229E-RESP PCR NOT DETECTED; CORONAVIRUS HKU1-RESP PCR NOT DETECTED
[2021-08-30 14:41] LABS: B. PARAPERTUSSIS- RESP PCR PAN NOT DETECTED; B. PERTUSSIS- RESP PCR PANEL NOT DETECTED; C. PNEUMONIAE- RESP PCR PANEL NOT DETECTED; CORONAVIRUS NL63-RESP PCR NOT DETECTED; CORONAVIRUS OC43-RESP PCR NOT DETECTED; HUMAN METAPNEUMOVIRUS NOT DETECTED; INFLUENZA A- RESP PCR PANEL NOT DETECTED; INFLUENZA B - RESP PCR PANEL NOT DETECTED; M. PNEUMONIAE- RESP PCR PANEL NOT DETECTED; PARAINFLUENZA VIRUS 1 NOT DETECTED; PARAINFLUENZA VIRUS 2 NOT DETECTED; PARAINFLUENZA VIRUS 3 NOT DETECTED; PARAINFLUENZA VIRUS 4 NOT DETECTED; RHINOVIRUS/ENTEROVIRUS NOT DETECTED; RSV- RESP PCR PANEL NOT DETECTED; SARS-CoV-2 -RESP PCR PANEL NOT DETECTED
[2021-08-30] MEDS: lisinopriL 5 MG TABLET PO SCH (16:02)
[2021-08-31] MEDS: SODIUM CHLORIDE FLUSH 0.9% 10 ML SYRINGE IVP SCH ×3 (01:12→17:40)
[2021-08-31] MEDS: ACETAMINOPHEN 325 MG TABLET PO PRN ×4 (04:16→21:33)
[2021-08-31] MEDS: methocarbamoL 500 MG TABLET PO PRN ×3 (05:56→19:55)
[2021-08-31] MEDS: FUROSEMIDE 20 MG TABLET PO SCH ×2 (05:56→13:24)
[2021-08-31 06:32] LABS: BASOPHILS # (AUTO) 0.1 10^3/uL (0.0-0.1); BASOPHILS % (AUTO) 0.5 %; EOSINOPHILS # (AUTO) 0.3 10^3/uL (0.0-0.7); EOSINOPHILS % (AUTO) 2.5 %; HCT - HEMATOCRIT 40.8 % (42.0-52.0); HGB - HEMOGLOBIN 11.8 g/dL (14.0-18.0); LYMPHOCYTES # (AUTO) 1.4 10^3/uL (1.5-3.5); LYMPHOCYTES % (AUTO) 12.7 %; MEAN CORPUSCULAR HEMOGLOBIN 21.9 pg (27.0-31.0); MEAN CORPUSCULAR HGB CONC 28.9 g/dL (32.0-36.0); MEAN CORPUSCULAR VOLUME 75.8 fL (80.0-94.0); MEAN PLATELET VOLUME 8.9 fL (7.4-11.4); MONOCYTES # (AUTO) 1.3 10^3/uL (0.0-1.0); MONOCYTES % (AUTO) 12.1 %; NEUTROPHILS # (AUTO) 7.8 10^3/uL (1.5-6.6); NEUTROPHILS % (AUTO) 71.9 %; NRBC ABSOLUTE COUNT (AUTO) 0.02 x10^3/uL; NUCLEATED RED BLOOD CELLS AUTO 0.2 /100WBC; PLT - PLATELET COUNT 605 10^3/uL (130-450); RED BLOOD COUNT 5.38 10^6/uL (4.70-6.10); RED CELL DISTRIBUTION WIDTH 25.9 % (12.0-15.0); WHITE BLOOD COUNT 10.8 x10^3/uL (4.8-10.8)
[2021-08-31 06:34] LABS: SLIDE REVIEW? Indicated
[2021-08-31 06:39] LABS: CALCIUM 8.9 mg/dL (8.5-10.3); POTASSIUM 3.7 mmol/L (3.5-5.0)
[2021-08-31 07:43] LABS: PLATELET ESTIMATE, MANUAL INCREASED (>450,000) (NORMAL); PLATELET MORPHOLOGY NORMAL APPEARANCE (NORMAL); RBC MORPHOLOGY (MULTIPLE) 1+ ANISOCYTOSIS (NORMAL)
--- NOTE | 2021-08-31 08:23 | PROVIDER PROGRESS NOTE ---
Assessment/Plan - Problem List (1) Congestive heart failure Qualifiers: Qualified Code(s): I50.9 - Heart failure, unspecified Assessment/Plan: New onset. 2D echocardiogram showed overall left ventricular systolic function is moderately to severely globally impaired with an EF of 30 to 35%. There was no obvious regional wall motion abnormality seen. Moderate right ventricular enlargement noted. Metoprolol tartrate 50 mg p.o. twice daily Lasix 20 mg p.o. twice daily Lisinopril 5 mg p.o. daily was added to patient's medication. (2) Coronary artery disease Assessment/Plan: Due to new onset CHF with EF of 30 to 35% stress test was done today 08/31/2021. Myocardial perfusion study was abnormal. There was a moderate sized, moderately severe fixed defect in the inferior wall suspicious for myocardial infarction. There was no reversible perfusion defect to suggest myocardial ischemia. Moderate left ventricular enlargement noted. The inferior wall was hypokinetic. The left ventricular volume was moderately decreased at 32%. Patient is on metoprolol tartrate 50 mg p.o. twice daily On lisinopril 5 mg p.o. daily. We will add atorvastatin 40 mg every afternoon. A baby aspirin daily. Will discuss with cardiology in the morning for recommendation regarding the next plan of action. (3) Bilateral knee pain Assessment/Plan: Likely secondary to degenerative joint disease/ osteoarthritis. Patient has been informed he would need knee replacements. He is to follow-up with orthopedic surgery in the outpatient setting once his medical status has been optimized. Pain management with Tylenol and Robaxin as needed (4) Back pain Qualifiers: Back pain location: low back pain Assessment/Plan: Chronic. Pain management with Tylenol and/or Robaxin as needed (5) Iron deficiency anemia Assessment/Plan: Hemoglobin today ws 11.8. Iron level on 08/27/2021 was 16, TIBC 458, %Saturation 3 and ferritin 11.9 On ferrous sulfate 325 mg p.o. twice daily (6) Thrombocytosis Assessment/Plan: Platelet count today is 605. Patient started on a baby aspirin daily - Current Meds Current Meds: Current Medications Generic Name Dose Route Start Last Admin Trade Name Freq PRN Reason Stop Dose Admin Acetaminophen 650 mg 08/26/21 19:49 08/31/21 04:16 Acetaminophen 325 Mg Tablet PO 650 mg Q4HR PRN Administration Pain 1 to 4 Enoxaparin Sodium 40 mg 08/27/21 09:00 08/30/21 10:55 Enoxaparin 40 Mg/0.4 Ml Syringe SUBQ 40 mg DAILY [facility] Administration Ferrous Sulfate 325 mg 08/27/21 08:00 08/30/21 17:44 Ferrous Sulfate 325 Mg Tablet PO 325 mg BIDWM [facility] Administration Furosemide 20 mg 08/28/21 14:00 08/31/21 05:56 Furosemide 20 Mg Tablet PO 20 mg BIDDIURETIC [facility] Administration Lisinopril 5 mg 08/30/21 15:08 08/30/21 16:02 Lisinopril 5 Mg Tablet PO 5 mg DAILY [facility] Administration Methocarbamol 500 mg 08/26/21 21:42 08/31/21 05:56 Methocarbamol 500 Mg Tablet PO 500 mg Q6HR PRN Administration Spasms Metoprolol Tartrate 50 mg 08/28/21 09:00 08/30/21 20:35 Metoprolol Tartrate 50 Mg Tablet PO 50 mg BID [facility] Administration Sodium Chloride 10 ml 08/26/21 19:49 08/28/21 06:49 Sodium Chloride Flush 0.9% 10 Ml Syringe IVP 10 ml PRN PRN Administration NEEDED PER PROVIDER ORDERS Sodium Chloride 10 ml 08/27/21 01:00 08/31/21 01:12 Sodium Chloride Flush 0.9% 10 Ml Syringe IVP 10 ml 0100,0900,1700 [facility] Administration - Lab Result Fish Bone Diagrams: 08/31/21 06:18 08/31/21 06:18 - Additional Planning My Orders: My Active Orders 08/30/21 15:08 lisinopriL [Zestril] 5 mg PO DAILY 08/30/21 19:43 Stress Test Prep [RC] .ONCE 08/31/21 00:01 NPO except Meds at Midnight [DIET] 08/31/21 12:00 Myocardial Perfusion STR/RST [NM] Routine Subjective - Subjective Patient Reports: Other (Resting comfortably in bed at time of exam. Denied c hest pain, dyspnea, abdominal pain, nausea, vomiting, fever or chills. Complains of hunger.) Objective Vital Signs: Vital Signs - 24 hr 08/30/21 08/30/21 08/30/21 10:55 11:15 12:05 Temperature 36.4 C L Heart Rate 110 H Heart Rate [ 93 Brachial] Respiratory 18 Rate Blood Pressure 118/81 H Blood Pressure [Left Brachial artery] Blood Pressure 114/81 H [Right Brachial artery] O2 Saturation 96 08/30/21 08/30/21 08/30/21 16:10 20:34 20:35 Temperature 36.6 C 36.5 C Heart Rate Heart Rate [ 86 92 Brachial] Respiratory 20 18 Rate Blood Pressure 99/66 Blood Pressure 98/65 [Left Brachial artery] Blood Pressure 122/84 H [Right Brachial artery] O2 Saturation 98 96 08/31/21 08/31/21 00:20 04:28 Temperature 36.6 C 36.8 C Heart Rate Heart Rate [ 63 89 Brachial] Respiratory 18 16 Rate Blood Pressure Blood Pressure [Left Brachial artery] Blood Pressure 90/60 106/68 [Right Brachial artery] O2 Saturation 96 95 Oxygen O2 Source Room air I&O (Last 24 Hrs): Intake and Output Totals x24h 08/29/21 08/30/21 08/31/21 23:59 23:59 23:59 Intake Total 1540 1580 350 Output Total 5860 8865 325 Balance -435 -495 25 Comments/Notes: General: Alert, Oriented x3, Moderate distress HEENT: PERRLA, EOMI Neck: Supple, No JVD Neuro: Alert, Non Focal, Oriented Times 3 Cardiovascular: Regular rate, No murmurs Respiratory: Chest non-tender, No respiratory distress, Breath sounds nml Abdomen: Normal bowel sounds, Soft, No tenderness Extremities: No clubbing, No edema, Other (bilateral knee pain) Skin: No rashes, No breakdown, No significant lesion - Results Results: Laboratory Results WBC 10.8 x10^3/uL (4.8-10.8) 08/31/21 06:18 RBC 5.38 10^6/uL (4.70-6.10) 08/31/21 06:18 Hgb 11.8 g/dL (14.0-18.0) L 08/31/21 06:18 Hct 40.8 % (42.0-52.0) L 08/31/21 06:18 MCV 75.8 fL (80.0-94.0) L 08/31/21 06:18 MCH 21.9 pg (27.0-31.0) L 08/31/21 06:18 MCHC 28.9 g/dL (32.0-36.0) L 08/31/21 06:18 RDW 25.9 % (12.0-15.0) H 08/31/21 06:18 Plt Count 605 10^3/uL (130-450) H 08/31/21 06:18 MPV 8.9 fL (7.4-11.4) 08/31/21 06:18 Neut # (Auto) 7.8 10^3/uL (1.5-6.6) H 08/31/21 06:18 Lymph # (Auto) 1.4 10^3/uL (1.5-3.5) L 08/31/21 06:18 [place] # (Auto) 1.3 10^3/uL (0.0-1.0) H 08/31/21 06:18 Eos # (Auto) 0.3 10^3/uL (0.0-0.7) 08/31/21 06:18 Baso # (Auto) 0.1 10^3/uL (0.0-0.1) 08/31/21 06:18 Absolute Nucleated RBC 0.02 x10^3/uL 08/31/21 06:18 Nucleated RBC % 0.2 /100WBC 08/31/21 06:18 Manual Slide Review Indicated 08/31/21 06:18 WBC Morphology NORMAL APPEARANCE (NORMAL) 08/29/21 05:53 Platelet Estimate INCREASED (>450,000) (NORMAL) 08/31/21 06:18 Platelet Morphology NORMAL APPEARANCE (NORMAL) 08/31/21 06:18 RBC Morph Micro Appear 1+ ANISOCYTOSIS (NORMAL) 08/31/21 06:18 PT 16.8 secs (9.9-12.6) H 08/26/21 18:04 INR 1.5 (0.8-1.2) H 08/26/21 18:04 Sodium 135 mmol/L (135-145) 08/31/21 06:18 Potassium 3.7 mmol/L (3.5-5.0) 08/31/21 06:18 Chloride 101 mmol/L (101-111) 08/31/21 06:18 Carbon Dioxide 24 mmol/L (21-32) 08/31/21 06:18 Anion Gap 10.0 (6-13) 08/31/21 06:18 BUN 26 mg/dL (6-20) H 08/31/21 06:18 Creatinine 1.0 mg/dL (0.6-1.2) 08/31/21 06:18 Estimated GFR (MDRD) 73 (>89) L 08/31/21 06:18 Glucose 105 mg/dL (70-100) H 08/31/21 06:18 Calcium 8.9 mg/dL (8.5-10.3) 08/31/21 06:18 Magnesium 2.1 mg/dL (1.7-2.8) 08/26/21 17:49 Iron 16 ug/dL (45-182) L 08/27/21 04:58 TIBC 458 ug/dL (250-450) H 08/27/21 04:58 % Saturation 3 % (20-50) L 08/27/21 04:58 Transferrin 327 mg/dL (180-329) 08/27/21 04:58 Ferritin 11.9 ng/mL (23.9-336.2) L 08/27/21 04:58 Total Bilirubin 0.7 mg/dL (0.2-1.0) 08/26/21 17:49 AST 23 IU/L (10-42) 08/26/21 17:49 ALT 14 IU/L (10-60) 08/26/21 17:49 Alkaline Phosphatase 97 IU/L (42-121) 08/26/21 17:49 Troponin I High Sens 55.3 ng/L (2.3-19.7) H* 08/26/21 22:52 B-Natriuretic Peptide 395 pg/mL (5-100) H 08/31/21 06:18 Total Protein 7.9 g/dL (6.7-8.2) 08/26/21 17:49 Albumin 3.8 g/dL (3.2-5.5) 08/26/21 17:49 Globulin 4.1 g/dL (2.1-4.2) 08/26/21 17:49 Albumin/Globulin Ratio 0.9 (1.0-2.2) L 08/26/21 17:49 Lipase 23 U/L (22-51) 08/26/21 17:49 Nasal Adenovirus (PCR) NOT DETECTED 08/30/21 13:07 Nasal B. parapertussis DNA (PCR) NOT DETECTED 08/30/21 13:07 Nasal Coronavir 229E PCR NOT DETECTED 08/30/21 13:07 Nasal Coronavir HKU1 PCR NOT DETECTED 08/30/21 13:07 Nasal Coronavir NL63 PCR NOT DETECTED 08/30/21 13:07 Nasal Coronavir OC43 PCR NOT DETECTED 08/30/21 13:07 Nasal Enterovir/Rhinovir PCR NOT DETECTED 08/30/21 13:07 Nasal Influenza B PCR NOT DETECTED 08/30/21 13:07 Nasal Influenza A PCR NOT DETECTED 08/30/21 13:07 Nasal Parainfluen 1 PCR NOT DETECTED 08/30/21 13:07 Nasal Parainfluen 2 PCR NOT DETECTED 08/30/21 13:07 Nasal Parainfluen 3 PCR NOT DETECTED 08/30/21 13:07 Nasal Parainfluen 4 PCR NOT DETECTED 08/30/21 13:07 Nasal RSV (PCR) NOT DETECTED 08/30/21 13:07 Nasal B.pertussis DNA PCR NOT DETECTED 08/30/21 13:07 Nasal C.pneumoniae (PCR) NOT DETECTED 08/30/21 13:07 James Human Metapneumo PCR NOT DETECTED 08/30/21 13:07 Nasal M.pneumoniae (PCR) NOT DETECTED 08/30/21 13:07 Nasal SARS-CoV-2 (PCR) NOT DETECTED 08/30/21 13:07 ABX Reporting Has patient been on IV antibiotics over the past 48 hours?: No
[2021-08-31] MEDS: ENOXAPARIN 40 MG/0.4 ML SYRINGE SUBQ SCH (09:38)
[2021-08-31] MEDS: FERROUS SULFATE 325 MG TABLET PO SCH ×2 (09:38→17:40)
[2021-08-31] MEDS: lisinopriL 5 MG TABLET PO SCH (09:39)
[2021-08-31] MEDS: METOPROLOL TARTRATE 50 MG TABLET PO SCH (09:41)
[2021-08-31] MEDS ORDERED: AMINOPHYLLINE 500 MG/20 ML VIAL ONE (14:32)
[2021-08-31] MEDS ORDERED: REGADENOSON 0.4 MG/5 ML SYRINGE IVP ONE ×2 (14:32→16:45)
[2021-08-31] MEDS ORDERED: AMINOPHYLLINE IV ONE (16:48)
[2021-08-31] MEDS ORDERED: SODIUM CHLORIDE 0.9% IV ONE (16:48)
--- NOTE | 2021-08-31 17:06 | Nuclear Medicine Report ---
PROCEDURE: Rest and pharmacological stress myocardial perfusion SPECT with gated imaging and ejection fraction INDICATIONS: new onset CHF RADIOPHARMACEUTICAL: 12.5 mCi Tc-99m Myoview IV at rest and 47.1 mCi Tc-99m Myoview IV at peak stre ss. [id number] was performed. TECHNIQUE: Radiopharmaceutical was injected at peak stress test, and also at rest. SPECT images wer e obtained. SPECT myocardial perfusion images were displayed in short axis, horizontal long axis, an d vertical long axis views. Gated images were reviewed using Auto[employer] software. COMPARISON: None available. FINDINGS: Raw data: There is good myocardial labeling by radiotracer. No significant motion artifacts. Lung- to-heart ratio is 0.60 (normal is less than 0.46 for tetrafosmin tracer). Left ventricle function: Gated images demonstrate normal left ventricle wall thickening. Inferior wa ll is hypokinetic. No transient ischemic dilation; TID is 1.09 (normal less than 1.30). The left ve ntricle resting end-diastolic volume is 187 mL. Left ventricle stress ejection fraction is 40%; norm al values are above 45%. Myocardial perfusion: There is moderate sized, moderately severe, fixed perfusion defect in the infe rior wall. Unfortunately, the patient was unable to tolerate prone imaging. No reversible perfusion j ack to suggest myocardial ischemia. IMPRESSION: 1. Probably abnormal myocardial perfusion images. There is a moderate sized, moderately severe, fixed defect in the inferior wall, suspicious for myocardial infarction. Unfortunately, the patient could not tolerate prone imaging. A differential diagnosis for the abnormality is diaphragmatic attenuation artifact. 2. No reversible perfusion defect to suggest myocardial ischemia. 3. Moderate left ventricular enlargement. The inferior wall is hypokinetic. The left ventricular volu me is moderately decreased at 32%. 4. There is abnormal LHR is an independent predictor for adverse cardiac event. 5. Please correlate with stress EKG result. The result was discussed with Dr. Yarbrough. PQRS ATTESTATIONS: Measure 322 - Is this imaging test primarily performed on a low-risk surgery patient for preoperative evaluation within 30 days preceding their low-risk non-cardiac surgery? Low-risk surgery is defined as cardiac or myocardial infarction less than 1%, including (but not limited to) endoscopic pr ocedures, superficial procedures, cataract surgery, and excisional breast surgery: Answer: No Measure 323 - Is this imaging test performed primarily for the monitoring of an asymptomatic patient who had percutaneous coronary intervention on the visit date or within 2 years of the visit date? An swer: No Measure 324 - Is this imaging test performed primarily for the initial detection and risk assessment on an asymptomatic, low coronary heart disease patient? Low CHD risk definition = clinicians should consider the maximum number of available patient factors used to estimate risk based on [place] (A TP III criteria), typically age, gender, diabetes, smoking status, and use of blood pressure medicati on, and integrate age appropriate estimates for missing elements, such as LDL or standard blood press ure. Answer: No Reviewed by: Gee Arambula MD on 08/31/2021 5:05 PM PST Approved by: Gee Arambula MD on 08/31/2021 5:05 PM PST Station ID: [id number]
--- NOTE | 2021-08-31 19:54 | CARDIAC PROCEDURE NOTE ---
Stress Test Report Service Date: 08/31/21 Service Time: 12:00 Ordering Provider: Dr Yarbrough Indication for Test: New onset CHF, LVEF is 30-35% by Echo. Cardiac Risk Factors: Advanced age, obesity, unknown cholesterol status, poss. family history of heart disease. Pharmacologic Agent: Lexiscan Procedure: After signing informed consent, the patient underwent a Lexiscan pharmaceutical stress test with nuclear myocardial perfusion imaging. Resting heart rate: 78. Peak heart rate: 85 Resting blood pressure: 106/74 Peak blood pressure: 95/55 Lexiscan was infused per protocol. The patient had no shortness of breath or chest pain, but had a brief headache. Baseline EKG showed: Normal sinus rhythm, rate 79, marked first-degree block (WA [id number] ms), and Left bundle branch block is present. EKG during Lexiscan: Intermittent bradycardia down to 57 bpm was seen, unchanged very prolonged WA interval, no new ST segment changes however there is underlying left bundle branch block already, therefore no ST segment evaluation can be done. Aminophylline 50 mg IV push was given as a reversal, due to intermittent bradycardia, possibly caused by the Lexiscan. Nuclear imaging was done and was reported separately. This showed a moderate sized, fixed inferior wall defect consistent with myocardial infarction. The wall motion was hypokinetic in that region as well. LVEF calculated at 32%. No other areas of the LV showed any reversible ischemia, on nuclear imaging. Summary: 1) Baseline EKG shows marked first-degree AV block and left bundle branch block. 2) Lexiscan infusion caused no symptoms of chest pain or shortness of breath, but did produce intermittent bradycardia and hypotension was noted. 3) Nuclear scans showed evidence of a prior inferior myocardial infarction (fixed defect), and depressed LVEF of 32%, but no other areas of the LV have reversible ischemia.
[2021-08-31] MEDS ORDERED: ASPIRIN EC 81 MG TABLET PO SCH (21:00)
--- NOTE | 2021-08-31 21:17 | ADVANCE CARE PLANNING NOTE ---
Advance Care Planning - Planning Encounter Date: 08/31/21 Time: 20:30 Purpose: To discuss CODE STATUS in light of complete results of stress test showing old MS, EF 32%, and has choice of whether he should get a defibrillator. Parties in Attendance: I spoke to patient in his room. Decisional Capacity of the Patient: He has full decisional capacity. - Encounter Subjective/Patient's Story: The patient was admitted with shortness of breath, leg edema and exhaustion and presumed CHF. He is improving with less dyspnea and no further edema having been diuresed. We discussed the results of the stress test today at this meeting. He qualifies for an implanted defibrillator because of his LVEF under 35% and says he would proceed and chooses to get a defibrillator. I commented that he would then have to rescind the DNR. He stated he does not want to be a DNR, he wants to be a full code as he told the admitting doctor, Dr. Da Silva. He states that Dr. Jernigan must have misunderstood him because he had said "when he dies, call the corner", this did not mean that if he has a cardiac arrest do not do anything and just call the corner. Objective/Medical Story: His admitting impression was CHF. The Echo was done shows an LVEF of 30 to 35% and he is improved with diuretics. Today he underwent a stress test. His baseline EKG shows first-degree block and left bundle branch block, Lexiscan was infused and did not cause any chest pain or shortness of breath. The nuclear images showed a fixed inferior perfusion defect, no other areas of reversible ischemia, LVEF is 32%. I reviewed in detail with him the results of the Echo and today's stress test and the types of treatments planned (beta-nithya, lisinopril, Lasix and spironolactone) as well as an antiplatelet agent daily and possible statin daily. He will need cardiology for follow-up going forward and he qualifies for defibrillator. I explained what a defibrillator is, how it is implanted and followed. Patient stated he wants everything done to continue to live and especially if a defibrillator would save his life. I then queried why he is a DNR and he stated that he does not want to be a DNR, he wants to be a Full Code. Goals of Care: Improvement in symptoms and stabilization are the goals. The patient still wants to travel, he enjoys sailing. He wants to be followed by a Woods Superintendent and wants to proceed with a defibrillator implant. Plan: Will change CODE STATUS to full code. We will need to send summary of this hospitalization to his [facility] provider (Dr Jemma Lynn), and to his nurse practitioner in the [facility] (Traci Block, CHOLO), and one of these will need to give him referral to a Woods Superintendent and he chooses to see Dr. Iker Castaneda Woods Superintendent, [facility]) at the [facility] here. Code Status: Attempt Resuscitation Time spent on advance care plannin
[2021-08-31] MEDS: ATORVASTATIN 40 MG TABLET PO SCH (21:31)
[2021-09-01] MEDS: ACETAMINOPHEN 325 MG TABLET PO PRN ×4 (01:14→20:25)
[2021-09-01] MEDS: SODIUM CHLORIDE FLUSH 0.9% 10 ML SYRINGE IVP SCH ×3 (01:17→17:02)
[2021-09-01] MEDS: methocarbamoL 500 MG TABLET PO PRN ×4 (01:50→23:45)
[2021-09-01 06:35] LABS: BUN - BLOOD UREA NITROGEN 24 mg/dL (6-20); CALCIUM 9.1 mg/dL (8.5-10.3); CARBON DIOXIDE - CO2 27 mmol/L (21-32); CHLORIDE 103 mmol/L (101-111); CHOLESTEROL 116 mg/dL; GFR - MDRD 73 (>89); GLUCOSE 99 mg/dL (70-100); MAGNESIUM 2.5 mg/dL (1.7-2.8); SODIUM 139 mmol/L (135-145); TRIGLYCERIDES 59 mg/dL; VLDL CHOLESTEROL 12 mg/dL
[2021-09-01 06:36] LABS: CHOL/HDL RATIO 2.6 (<5.0); HDL CHOLESTEROL 45 mg/dL; LDL CHOLESTEROL,CALCULATED 59 mg/dL; LDL/HDL RATIO 1.3 (<3.6)
[2021-09-01] MEDS: SPIRONOLACTONE 25 MG TABLET PO SCH (09:24)
[2021-09-01] MEDS: METOPROLOL SUCCINATE 25 MG TABLET PO SCH (09:24)
[2021-09-01] MEDS: ENOXAPARIN 40 MG/0.4 ML SYRINGE SUBQ SCH (09:24)
[2021-09-01] MEDS: FUROSEMIDE 20 MG TABLET PO SCH (09:24)
[2021-09-01] MEDS: FERROUS SULFATE 325 MG TABLET PO SCH ×2 (09:24→17:02)
[2021-09-01] MEDS: CLOPIDOGREL 75 MG TABLET PO SCH (09:24)
[2021-09-01] MEDS: lisinopriL 5 MG TABLET PO SCH (09:24)
--- NOTE | 2021-09-01 11:00 | DISCHARGE SUMMARY ---
Discharge Summary Admit Date: 08/26/21 Discharge Date: 09/01/21 Discharging Provider: Sebastian Yarbrough Primary Care Provider: Traci Block Code Status: Attempt Resuscitation Condition at Discharge: Stable Discharge Disposition: 03 SNF DC/Xfer Discharge [facility]: [facility] - DIAGNOSES Admission Diagnoses: CHF Elevated troponin First-degree AV block Back pain Thrombocytosis Discharge Diagnoses with Status of Each Condition: CHF (new Onset): Likely secondary to coronary event. EF was 30-35%. Patient is currently back to breathing comfortably on room air. He will be discharged With Lasix, spironolactone, lisinopril, metoprolol Coronary artery disease: Patient has a coronary event. Time of occurence uknown. Stress test was abnormal. It showed a moderate sized, moderately severe fixed defect in the inferior wall suspicious for myocardial infarction. Patient discharged home on Lasix, spironolactone, lisinopril, metoprolol and Plavix. Up with cardiology in the outpatient setting. Bilateral knee pain: Once medical problems optimized and patient stable from a cardiac point of view he is to follow-up with his orthopedic surgeons regarding possible knee repair/replacement First-degree AV block Back pain: Pain management prn. Weight loss Iron deficiency anemia.: Ferrous sulfate supplemental iron 324 mg p.o. twice daily Thrombocytosis: Reactive. On plavix - HPI History of Present Illness: This is a 76-year-old male with a past medical history significant for chronic lower back pain who presents today complaining of worsening lower back pain. He states he has had sciatica for many years now and normally radiates down his left leg. Over the past week he has developed bilateral back pain that will radiate occasionally to the side of his abdomen. This is different than his sciatica pain. He thought it may have been related to some bad meat he ate last week. He went to the walk-in clinic today and it was noted that he was hypoxic as well as tachycardic with concern for atrial fibrillation and so he was referred to the emergency department. The patient does admit to feeling short of breath with activity for quite some time now. He believes he may have been feeling short of breath for the past year. He has noticed leg swelling that began over the past couple of days. He denies any orthopnea, chest pain. He had a stress test over 10 years ago and this was unremarkable from what he can recall. He is scheduled for an echocardiogram later this month. In the emergency department, he was noted to be tachycardic with heart rates in the low 100s. It was not clear if it was A. fib or sinus with PACs and so he was given 10 mg of diltiazem and a repeat EP EKG showed a sinus rhythm with a prolonged NV interval. He was noted to also be hypoxic with activity down to 88%. He was given dose of Lasix and medicine was consulted for admission. We discussed goals of care and he would like to be a full code. - HOSPITAL COURSE Hospital Course: Patient was diuresed with IV Lasix upon admission. Over the cause of 6 days of hospital stay his breathing improved steadily. By the day of discharge he was off oxygen and breathing comfortably at rest and with activity. Given that the CHF was a new onset he underwent a 2D echocardiogram 2D echocardiogram showed overall left ventricular systolic function is moderately to severely globally impaired with an EF of 30 to 35%. There was no obvious regional wall motion abnormality seen. Moderate right ventricular enlargement noted. As a result of her significantly low ejection fraction of 30 to 35% a myocardial perfusion study/stress test was done Myocardial perfusion study was abnormal. There was a moderate sized, moderately severe fixed defect in the inferior wall suspicious for myocardial infarction. There was no reversible perfusion defect to suggest myocardial ischemia. Moderate left ventricular enlargement noted. The inferior wall was hypokinetic. The left ventricular volume was moderately decreased at 32%. The patient is to follow-up with cardiology Dr. Iker Castaneda in the outpatient setting. receiving coordinator with help facilitate making this referral/appointment. He also had short run of nonsustained V. tach. It is expected that at the cardiology outpatient appointment the potential of defibrillator will be discussed with the e business consultant. The patient was seen by physical therapy and determined to potentially benefit from physical therapy. At discharge he was sent to [facility] for therapy. Discharged in stable condition. - ALLERGIES Allergies/Adverse Reactions: Allergies Allergy/AdvReac Type Severity Reaction Status Date / Time No Known Drug Allergies Allergy Verified 08/26/21 17:42 - MEDICATIONS Home Medications: Ambulatory Orders Medication Instructions Recorded Confirmed Doxylamine Succinate [Unisom] 25 mg PO QPM PRN 08/27/21 08/27/21 Ibuprofen [Advil] 800 mg PO TID PRN 08/27/21 08/27/21 Multivitamin [Theragran] 1 each PO DAILY 08/27/21 08/27/21 allopurinoL [Allopurinol] 300 mg PO DAILY 08/27/21 08/27/21 Atorvastatin [Lipitor] 40 mg PO QPM 30 Days #30 tablet 09/01/21 Clopidogrel [Plavix] 75 mg PO DAILY 30 Days #30 tablet 09/01/21 Ferrous Sulfate 325 mg PO BID 30 Days #60 tab 09/01/21 Furosemide [Lasix] 20 mg PO DAILY 30 Days #30 tablet 09/01/21 Metoprolol Succinate [Toprol Xl] 25 mg PO DAILY 30 Days #30 tablet 09/01/21 Spironolactone [Aldactone] 25 mg PO DAILY 30 Days #30 tablet 09/01/21 lisinopriL [Zestril] 5 mg PO DAILY 30 Days #30 tablet 09/01/21 - PHYSICAL EXAM AT DISCHARGE General Appearance: positive: Alert, Moderate distress Eyes Bilateral: positive: PERRL, EOMI ENT: positive: No signs of dehydration Neck: positive: No JVD, Trachea midline Respiratory: positive: Chest non-tender, No respiratory distress, Breath sounds nml. negative: Wheezes, Rales, Rhonchi Cardiovascular: positive: Regular rate & rhythm, No murmur Abdomen: positive: Non-tender, No organomegaly, Nml bowel sounds, No distention. negative: Guarding, Rebound Back: positive: Nml inspection Skin: positive: Color nml, No rash, Warm, Dry Extremities: positive: No pedal edema, Joint swelling (knee pain bilaterally) Neurologic/Psychiatric: positive: Oriented x3, Mood/affect nml - LABS Result Diagrams: 09/01/21 05:38 09/01/21 05:38 - TIME SPENT Time Spent in Discharge (Minutes): 20
--- NOTE | 2021-09-01 11:04 | Discharge Plan ---
"Discharge Plan for SNF / DEBRA - Discharge Plan And Transition Orders Problem Reviewed?: Yes Disposition: 03 SNF DC/Xfer Condition: Serious Allergies and Adverse Reactions: Allergies Allergy/AdvReac Type Severity Reaction Status Date / Time No Known Drug Allergies Allergy Verified 08/26/21 17:42 Health Concerns: You presented to the ED on 08/26/2021 with back pain For which further work-up and exam showed that you were in heart failure which was new onset. You were treated with Lasix and started on metoprolol. You underwent a 2D echocardiogram which showed overall left ventricular systolic function is moderately to severely globally impaired with an EF of 30 to 35%. There was no obvious regional wall motion abnormality seen. Moderate right ventricular enlargement noted. However given that this was a new onset of CHF you also underwent a stress test which was abnormal. There was a moderate sized, moderately severe fixed defect in the inferior wall suspicious for myocardial infarction. There was no reversible perfusion defect to suggest myocardial ischemia. Moderate left ventricular enlargement noted. The inferior wall was hypokinetic. The left ventricular volume was moderately decreased at 32%. As a result you have been started on several new medications as listed on your medication reconciliation form. These include metoprolol, Lasix, Plavix, atorvastatin, spironolactone and lisin opril. While in the hospital you also had a short run of ventricular tachycardia. You will need to follow-up with java grails developer in the outpatient setting for further discussion regarding a defibrillator. This was explained to you and you expressed understanding. You were also found to be very anemic with low iron levels. As a result you are being discharged on ferrous sulfate 324 mg twice daily. You were seen by physical therapy and determined to be in need/benefit from rehab. As a result you are being discharged to [facility] rehab facility. After this you may follow-up with your orthopedic doctor regarding potential future knee surgeries. You may also follow-up with your primary care physician as needed. You expressed understanding to the above plan and are in agreement. - SNF / FDC Transition Orders Admit to (Facility): [facility] Discharge Diagnosis: Congestive heart failure Coronary artery disease Bilateral knee pain Iron Deficiency anemia Thrombocytosis Medicare Certification Statement: I cert[facility] medically necessary on a continuing basis for any of the conditions for which she/he is receiving care during hospitalization. Notify PCP of admission and forward orders to primary provider for signature. Weight on admission and: Daily Call PCP immediately if weight increases by: 3 kg Other Notification Orders: Call PCP immediately if patient develops dyspnea, chest pain/tightness or edema. House Bowel Program: Yes Additional Bowel Program Orders: If no BM after 2 days, nurse may give M.O.M. 30ml PO PRN and/or ducolax Supp 1 [place] and/or ERIC 250mg P.O., and/or senna 1-2 tabs PO. On day 3 nurse may give repeat above order until residents constipation is resolved. Medication Orders: PLEASE REFER TO THE DISCHARGE MEDICATION LIST. - Medications New Prescriptions: Spironolactone [Aldactone] 25 mg PO DAILY 30 Days #30 tablet Ferrous Sulfate 325 mg PO BID 30 Days #60 tab Furosemide [Lasix] 20 mg PO DAILY 30 Days #30 tablet Atorvastatin [Lipitor] 40 mg PO QPM 30 Days #30 tablet Clopidogrel [Plavix] 75 mg PO DAILY 30 Days #30 tablet Metoprolol Succinate [Toprol Xl] 25 mg PO DAILY 30 Days #30 tablet lisinopriL [Zestril] 5 mg PO DAILY 30 Days #30 tablet - Diet Type: Cardiac Texture: Regular May have monthly special meal: Yes - Therapies | Activity Therapy: Evaluation | Treat if indicated: PT, OT Activity: Per Therapy Follow Up: With cardiology in the outpatient setting (Dr Castaneda) Orthopedic Surgery in the Outpatient setting"
[2021-09-01 11:22] LABS: HCT - HEMATOCRIT 43.6 % (42.0-52.0); HGB - HEMOGLOBIN 12.3 g/dL (14.0-18.0); RED BLOOD COUNT 5.53 10^6/uL (4.70-6.10); WHITE BLOOD COUNT 7.9 x10^3/uL (4.8-10.8)
[2021-09-01 11:23] LABS: BASOPHILS # (AUTO) 0.1 10^3/uL (0.0-0.1); EOSINOPHILS # (AUTO) 0.6 10^3/uL (0.0-0.7); EOSINOPHILS % (AUTO) 7.5 %; LYMPHOCYTES # (AUTO) 1.7 10^3/uL (1.5-3.5); LYMPHOCYTES % (AUTO) 21.2 %; MEAN CORPUSCULAR HEMOGLOBIN 22.2 pg (27.0-31.0); MEAN CORPUSCULAR HGB CONC 28.2 g/dL (32.0-36.0); MEAN CORPUSCULAR VOLUME 78.8 fL (80.0-94.0); MONOCYTES % (AUTO) 13.1 %; NEUTROPHILS # (AUTO) 4.5 10^3/uL (1.5-6.6); NEUTROPHILS % (AUTO) 56.8 %; PLT - PLATELET COUNT 598 10^3/uL (130-450); RED CELL DISTRIBUTION WIDTH 26.5 % (12.0-15.0); SLIDE REVIEW? Indicated
[2021-09-01 11:25] LABS: PLATELET ESTIMATE, MANUAL INCREASED (>450,000) (NORMAL); PLATELET MORPHOLOGY NORMAL APPEARANCE (NORMAL); RBC MORPHOLOGY (MULTIPLE) NORMAL APPEARANCE (NORMAL); WBC MORPHOLOGY (MULTIPLE) NORMAL APPEARANCE (NORMAL)
--- NOTE | 2021-09-01 12:46 | PROVIDER PROGRESS NOTE ---
Assessment/Plan - Problem List (1) Congestive heart failure Qualifiers: Qualified Code(s): I50.9 - Heart failure, unspecified Assessment/Plan: New onset. 2D echocardiogram showed overall left ventricular systolic function is moderately to severely globally impaired with an EF of 30 to 35%. There was no obvious regional wall motion abnormality seen. Moderate right ventricular enlargement noted. Metoprolol succinate 25 mg p.o. daily Lasix 20 mg p.o. daily Spironolactone 25 mg p.o. daily Lisinopril 5 mg p.o. daily was added to patient's medication. Anticipating discharge to [facility] facility tomorrow 09/02/2021. Discharge was not possible today due to inadequate nursing staffing at the [facility] (2) Coronary artery disease Assessment/Plan: Due to new onset CHF with EF of 30 to 35% stress test was done today 08/31/2021. Myocardial perfusion study was abnormal. There was a moderate sized, moderately severe fixed defect in the inferior wall suspicious for myocardial infarction. There was no reversible perfusion defect to suggest myocardial ischemia. Moderate left ventricular enlargement noted. The inferior wall was hypokinetic. The left ventricular volume was moderately decreased at 32%. Patient is on metoprolol succinate 25 mg p.o. daily On lisinopril 5 mg p.o. daily. We will add atorvastatin 40 mg every afternoon. Patient is allergic to aspirin so Plavix 75 mg p.o. daily was initiated.. Patient will follow up with cardiology in the outpatient setting. It is expected that the medication assistant will discuss potential AICD placement as well. (3) Bilateral knee pain Assessment/Plan: Likely secondary to degenerative joint disease/ osteoarthritis. Patient has been informed he would need knee replacements. He is to follow-up with orthopedic surgery in the outpatient setting once his medical status has been optimized. Pain management with Tylenol and Robaxin as needed (4) Back pain Qualifiers: Back pain location: low back pain Assessment/Plan: Chronic. Pain management with Tylenol and/or Robaxin as needed (5) Iron deficiency anemia Assessment/Plan: Iron level on 08/27/2021 was 16, TIBC 458, %Saturation 3 and ferritin 11.9 On ferrous sulfate 325 mg p.o. twice daily (6) Thrombocytosis Assessment/Plan: Active. Patient is on Plavix 75 mg p.o. daily - Current Meds Current Meds: Current Medications Generic Name Dose Route Start Last Admin Trade Name Freq PRN Reason Stop Dose Admin Acetaminophen 650 mg 08/26/21 19:49 09/01/21 06:58 Acetaminophen 325 Mg Tablet PO 650 mg Q4HR PRN Administration Pain 1 to 4 Atorvastatin Calcium 40 mg 08/31/21 21:00 08/31/21 21:31 Atorvastatin 40 Mg Tablet PO 40 mg QPM [facility] Administration Clopidogrel Bisulfate 75 mg 09/01/21 09:00 09/01/21 09:24 Clopidogrel 75 Mg Tablet PO 75 mg DAILY [facility] Administration Enoxaparin Sodium 40 mg 08/27/21 09:00 09/01/21 09:24 Enoxaparin 40 Mg/0.4 Ml Syringe SUBQ 40 mg DAILY [facility] Administration Ferrous Sulfate 325 mg 08/27/21 08:00 09/01/21 09:24 Ferrous Sulfate 325 Mg Tablet PO 325 mg BIDWM [facility] Administration Furosemide 20 mg 09/01/21 09:00 09/01/21 09:24 Furosemide 20 Mg Tablet PO 20 mg DAILY [facility] Administration Lisinopril 5 mg 08/30/21 15:08 09/01/21 09:24 Lisinopril 5 Mg Tablet PO 5 mg DAILY [facility] Administration Methocarbamol 500 mg 08/26/21 21:42 09/01/21 08:36 Methocarbamol 500 Mg Tablet PO 500 mg Q6HR PRN Administration Spasms Metoprolol Succinate 25 mg 09/01/21 09:00 09/01/21 09:24 Metoprolol Succinate 25 Mg Tablet PO 25 mg DAILY [facility] Administration Sodium Chloride 10 ml 08/26/21 19:49 08/28/21 06:49 Sodium Chloride Flush 0.9% 10 Ml Syringe IVP 10 ml PRN PRN Administration NEEDED PER PROVIDER ORDERS Sodium Chloride 10 ml 08/27/21 01:00 09/01/21 09:24 Sodium Chloride Flush 0.9% 10 Ml Syringe IVP 10 ml 0100,0900,1700 [facility] Administration Spironolactone 25 mg 09/01/21 09:00 09/01/21 09:24 Spironolactone 25 Mg Tablet PO 25 mg DAILY [facility] Administration - Lab Result Fish Bone Diagrams: 09/01/21 05:38 09/01/21 05:38 - Additional Planning My Orders: My Active Orders 08/31/21 Dinner Cardiac Diet [DIET] 08/31/21 21:00 Atorvastatin [Lipitor] 40 mg PO QPM 09/01/21 11:13 Discharge [RC] .ONCE Initiate Discharge Checklist [RC] .ONCE Subjective - Subjective Patient Reports: Other (In bed today. Had just showered and was ready to be discharged. However the discharge had to be canceled due to lack of adequate nursing staff at the facility Denied any complaints.) Objective Vital Signs: Vital Signs - 24 hr 08/31/21 08/31/21 08/31/21 16:32 20:18 23:35 Temperature 36.6 C 36.5 C 36.7 C Heart Rate [ 59 L 62 58 L Brachial] Respiratory 16 18 16 Rate Blood Pressure 103/68 103/64 [Left Brachial artery] Blood Pressure 95/65 [Right Brachial artery] O2 Saturation 96 98 97 09/01/21 09/01/21 09/01/21 04:53 08:15 11:34 Temperature 36.4 C L 36.1 C L 36.2 C L Heart Rate [ 80 86 56 L Brachial] Respiratory 18 20 18 Rate Blood Pressure 111/75 [Left Brachial artery] Blood Pressure 103/65 109/66 [Right Brachial artery] O2 Saturation 96 95 94 Oxygen O2 Source Room air I&O (Last 24 Hrs): Intake and Output Totals x24h 08/30/21 08/31/21 09/01/21 23:59 23:59 23:59 Intake Total 1580 1050 766 Output Total 6362 9479 1325 Qnqaygk -188 -974 -813 Comments/Notes: General: Alert, Oriented x3, Moderate distress HEENT: PERRLA, EOMI Neck: Supple, No JVD Neuro: Alert, Non Focal, Oriented Times 3 Cardiovascular: Regular rate, No murmurs Respiratory: Chest non-tender, No respiratory distress, Breath sounds nml Abdomen: Normal bowel sounds, Soft, No tenderness Extremities: No clubbing, No edema, Other (bilateral knee pain) Skin: No rashes, No breakdown, No significant lesion - Results Results: Laboratory Results WBC 7.9 x10^3/uL (4.8-10.8) 09/01/21 05:38 RBC 5.53 10^6/uL (4.70-6.10) 09/01/21 05:38 Hgb 12.3 g/dL (14.0-18.0) L 09/01/21 05:38 Hct 43.6 % (42.0-52.0) 09/01/21 05:38 MCV 78.8 fL (80.0-94.0) L 09/01/21 05:38 MCH 22.2 pg (27.0-31.0) L 09/01/21 05:38 MCHC 28.2 g/dL (32.0-36.0) L 09/01/21 05:38 RDW 26.5 % (12.0-15.0) H 09/01/21 05:38 Plt Count 598 10^3/uL (130-450) H 09/01/21 05:38 MPV 9.0 fL (7.4-11.4) 09/01/21 05:38 Neut # (Auto) 4.5 10^3/uL (1.5-6.6) 09/01/21 05:38 Lymph # (Auto) 1.7 10^3/uL (1.5-3.5) 09/01/21 05:38 [place] # (Auto) 1.0 10^3/uL (0.0-1.0) 09/01/21 05:38 Eos # (Auto) 0.6 10^3/uL (0.0-0.7) 09/01/21 05:38 Baso # (Auto) 0.1 10^3/uL (0.0-0.1) 09/01/21 05:38 Absolute Nucleated RBC 0.02 x10^3/uL 08/31/21 06:18 Nucleated RBC % 0.2 /100WBC 08/31/21 06:18 Manual Slide Review Indicated 09/01/21 05:38 WBC Morphology NORMAL APPEARANCE (NORMAL) 09/01/21 05:38 Platelet Estimate INCREASED (>450,000) (NORMAL) 09/01/21 05:38 Platelet Morphology NORMAL APPEARANCE (NORMAL) 09/01/21 05:38 RBC Morph Micro Appear NORMAL APPEARANCE (NORMAL) 09/01/21 05:38 PT 16.8 secs (9.9-12.6) H 08/26/21 18:04 INR 1.5 (0.8-1.2) H 08/26/21 18:04 Sodium 139 mmol/L (135-145) 09/01/21 05:38 Potassium 4.0 mmol/L (3.5-5.0) 09/01/21 05:38 Chloride 103 mmol/L (101-111) 09/01/21 05:38 Carbon Dioxide 27 mmol/L (21-32) 09/01/21 05:38 Anion Gap 9.0 (6-13) 09/01/21 05:38 BUN 24 mg/dL (6-20) H 09/01/21 05:38 Creatinine 1.0 mg/dL (0.6-1.2) 09/01/21 05:38 Estimated GFR (MDRD) 73 (>89) L 09/01/21 05:38 Glucose 99 mg/dL (70-100) 09/01/21 05:38 Calcium 9.1 mg/dL (8.5-10.3) 09/01/21 05:38 Magnesium 2.5 mg/dL (1.7-2.8) 09/01/21 05:38 Iron 16 ug/dL (45-182) L 08/27/21 04:58 TIBC 458 ug/dL (250-450) H 08/27/21 04:58 % Saturation 3 % (20-50) L 08/27/21 04:58 Transferrin 327 mg/dL (180-329) 08/27/21 04:58 Ferritin 11.9 ng/mL (23.9-336.2) L 08/27/21 04:58 Total Bilirubin 0.7 mg/dL (0.2-1.0) 08/26/21 17:49 AST 23 IU/L (10-42) 08/26/21 17:49 ALT 14 IU/L (10-60) 08/26/21 17:49 Alkaline Phosphatase 97 IU/L (42-121) 08/26/21 17:49 Troponin I High Sens 55.3 ng/L (2.3-19.7) H* 08/26/21 22:52 B-Natriuretic Peptide 395 pg/mL (5-100) H 08/31/21 06:18 Total Protein 7.9 g/dL (6.7-8.2) 08/26/21 17:49 Albumin 3.8 g/dL (3.2-5.5) 08/26/21 17:49 Globulin 4.1 g/dL (2.1-4.2) 08/26/21 17:49 Albumin/Globulin Ratio 0.9 (1.0-2.2) L 08/26/21 17:49 Triglycerides 59 mg/dL (-149) 09/01/21 05:38 Cholesterol 116 mg/dL (-199) 09/01/21 05:38 LDL Cholesterol, Calc 59 mg/dL (-129) 09/01/21 05:38 VLDL Cholesterol 12 mg/dL 09/01/21 05:38 HDL Cholesterol 45 mg/dL (60-) L 09/01/21 05:38 LDL/HDL Ratio 1.3 (<3.6) 09/01/21 05:38 Cholesterol/HDL Ratio 2.6 (<5.0) 09/01/21 05:38 Lipase 23 U/L (22-51) 08/26/21 17:49 Nasal Adenovirus (PCR) NOT DETECTED 08/30/21 13:07 Nasal B. parapertussis DNA (PCR) NOT DETECTED 08/30/21 13:07 Nasal Coronavir 229E PCR NOT DETECTED 08/30/21 13:07 Nasal Coronavir HKU1 PCR NOT DETECTED 08/30/21 13:07 Nasal Coronavir NL63 PCR NOT DETECTED 08/30/21 13:07 Nasal Coronavir OC43 PCR NOT DETECTED 08/30/21 13:07 Nasal Enterovir/Rhinovir PCR NOT DETECTED 08/30/21 13:07 Nasal Influenza B PCR NOT DETECTED 08/30/21 13:07 Nasal Influenza A PCR NOT DETECTED 08/30/21 13:07 Nasal Parainfluen 1 PCR NOT DETECTED 08/30/21 13:07 Nasal Parainfluen 2 PCR NOT DETECTED 08/30/21 13:07 Nasal Parainfluen 3 PCR NOT DETECTED 08/30/21 13:07 Nasal Parainfluen 4 PCR NOT DETECTED 08/30/21 13:07 Nasal RSV (PCR) NOT DETECTED 08/30/21 13:07 Nasal B.pertussis DNA PCR NOT DETECTED 08/30/21 13:07 Nasal C.pneumoniae (PCR) NOT DETECTED 08/30/21 13:07 James Human Metapneumo PCR NOT DETECTED 08/30/21 13:07 Nasal M.pneumoniae (PCR) NOT DETECTED 08/30/21 13:07 Nasal SARS-CoV-2 (PCR) NOT DETECTED 08/30/21 13:07 ABX Reporting Has patient been on IV antibiotics over the past 48 hours?: No
[2021-09-01] MEDS ORDERED: LIDOCAINE PATCH 5% TOP PRN (16:57)
[2021-09-01] MEDS: ATORVASTATIN 40 MG TABLET PO SCH (20:25)
[2021-09-02] MEDS: ACETAMINOPHEN 325 MG TABLET PO PRN ×2 (00:49→06:36)
[2021-09-02] MEDS: SODIUM CHLORIDE FLUSH 0.9% 10 ML SYRINGE IVP SCH (01:54)
[2021-09-02] MEDS: methocarbamoL 500 MG TABLET PO PRN (06:38)
[2021-09-02] MEDS: lisinopriL 5 MG TABLET PO SCH (08:10)
[2021-09-02] MEDS: CLOPIDOGREL 75 MG TABLET PO SCH (08:10)
[2021-09-02] MEDS: FERROUS SULFATE 325 MG TABLET PO SCH (08:11)
[2021-09-02] MEDS: SPIRONOLACTONE 25 MG TABLET PO SCH (08:11)
[2021-09-02] MEDS: FUROSEMIDE 20 MG TABLET PO SCH (08:11)
[2021-09-02] MEDS: ENOXAPARIN 40 MG/0.4 ML SYRINGE SUBQ SCH (08:12)
[2021-09-02] MEDS: METOPROLOL SUCCINATE 25 MG TABLET PO SCH (08:15)
[2021-09-02 08:29] VITALS: BP 112/74
== END 2021-09-02 10:10 | DRG 292 ==
LOC: ED 17:30 → MS2 19:49 → OBSVTOIN 08-27 10:59
PROVIDERS: ADMIT Internal Medicine; ATTEND Internal Medicine
DX: I11.0 Hypertensive heart disease with heart failure (principal); I47.2 Ventricular tachycardia; I50.9 Heart failure, unspecified; I44.4 Left anterior fascicular block; M54.41 Lumbago with sciatica, right side; I25.10 Atherosclerotic heart disease of native coronary artery without angina pectoris; I44.0 Atrioventricular block, first degree; I44.7 Left bundle-branch block, unspecified; D50.9 Iron deficiency anemia, unspecified; D75.839 Thrombocytosis, unspecified; M25.511 Pain in right shoulder; M25.561 Pain in right knee; M25.562 Pain in left knee; M54.42 Lumbago with sciatica, left side; G89.29 Other chronic pain; R09.02 Hypoxemia; R53.83 Other fatigue; R77.8 Other specified abnormalities of plasma proteins; Z20.822 Contact with and (suspected) exposure to COVID-19; Z79.02 Long term (current) use of antithrombotics/antiplatelets; Z79.899 Other long term (current) drug therapy; Z87.891 Personal history of nicotine dependence
CPT/HCPCS: 36415; 71045; 72114; 78452; 80048; 80053; 80061; 82728; 83540; 83690; 83735; 83880; 84466; 84484; 85025; 85610; 87631; 93005; 93017; 93306; 94761; 96372; 96374; 96375; 96376; 97116; 97161; 99284; 99285; A9270; A9500; J1650; J1750; J2785; 0202U; 83721

== ENCOUNTER 2023-02-06 18:45 | Outpatient (CLI) | payer MEDICARE, MEDICAID | END 2023-02-06 18:46 | disposition critical access hospital (66) | LOC: EMS 18:45 | DX: I46.9 Cardiac arrest, cause unspecified (principal) | CPT/HCPCS: A0425; A0433 ==

== ENCOUNTER 2023-02-06 19:07 | Emergency (ER) | payer MEDICARE, MEDICAID ==
[2023-02-06] MEDS ORDERED: PROPOFOL 1000 MG/100 ML 1,000 MG/100 ML BOTTLE IV ONE (19:24)
[2023-02-06] MEDS ORDERED: PROPOFOL 1000 MG/100 ML 1,000 MG/100 ML BOTTLE IV STA (19:26)
[2023-02-06] MEDS ORDERED: PROPOFOL 200 MG/20 ML VIAL IVP STA (19:26)
[2023-02-06] MEDS ORDERED: SODIUM CHLORIDE 0.9% 1,000 ML IV STA ×2 (19:29→22:45)
--- NOTE | 2023-02-06 19:29 | ED Physician Documentation ---
PD HPI CPR - Stated complaint Stated Complaint: CPR - Chief complaint Chief Complaint: Critical Care - History obtained from History obtained from: EMS - Additional information Additional information: 77-year-old gentleman with history of CHF, possibly A-fib, otherwise unknown medical history. Neighbors called 911 because he reportedly had fallen. Nobody there knew him, reportedly had just moved to the neighborhood. EMS found him complaining of dizziness and weakness and having passed out. He subsequently had a 2-minute cardiac arrest with a bradycardic narrow complex PEA. After about 2 minutes of CPR ROSC was achieved the first time. Several minutes later had another episode of similar arrest with PEA, this time more like 15 minutes of CPR on the way here with 6 rounds of epinephrine. On arrival ROSC has been achieved again. PD PAST MEDICAL HISTORY - Past Medical History Cardiovascular: Hypertension Musculoskeletal: Chronic back pain - Past Surgical History Ortho: Other - Present Medications Home Medications: Ambulatory Orders Medication Instructions Recorded Confirmed Doxylamine Succinate [Unisom] 25 mg PO QPM PRN 08/27/21 08/27/21 Ibuprofen [Advil] 800 mg PO TID PRN 08/27/21 08/27/21 Multivitamin [Theragran] 1 each PO DAILY 08/27/21 08/27/21 allopurinoL [Allopurinol] 300 mg PO DAILY 08/27/21 08/27/21 Atorvastatin [Lipitor] 40 mg PO QPM 30 Days #30 tablet 09/01/21 Clopidogrel [Plavix] 75 mg PO DAILY 30 Days #30 tablet 09/01/21 Ferrous Sulfate 325 mg PO BID 30 Days #60 tab 09/01/21 Furosemide [Lasix] 20 mg PO DAILY 30 Days #30 tablet 09/01/21 Metoprolol Succinate [Toprol Xl] 25 mg PO DAILY 30 Days #30 tablet 09/01/21 Spironolactone [Aldactone] 25 mg PO DAILY 30 Days #30 tablet 09/01/21 lisinopriL [Zestril] 5 mg PO DAILY 30 Days #30 tablet 09/01/21 - Allergies Allergies/Adverse Reactions: Allergies Allergy/AdvReac Type Severity Reaction Status Date / Time No Known Drug Allergies Allergy Verified 02/06/23 19:23 - Social History Does the pt smoke?: No Smoking Status: Never smoker Does the pt drink ETOH?: No Does the pt have substance abuse?: No - Immunizations Immunizations are current?: Yes - POLST Patient has POLST: No PD ED PE NORMAL - Vitals Vital signs reviewed: Yes - General General: Other (He is breathing over the ventilator. Appears pale. Is on the ventilator. Not responding to commands.) - HEENT HEENT: Other (Small pupils) - Neck Neck: Other (In a c-collar) - Cardiac Cardiac: Other (Irregularly irregular without murmur) - Respiratory Respiratory: Other (Bilateral breath sounds being ventilated) - Abdomen Abdomen: Non tender - Neuro Eye Opening: None Motor: Withdraws to Pain Verbal: None (T) GCS Score: 6 Results - Vitals Vitals: Vital Signs - 24 hr 02/06/23 02/06/23 02/06/23 19:19 19:23 20:17 Temperature Heart Rate 113 H 103 H 112 H Respiratory 27 H 23 Rate Blood Pressure 101/87 H 102/75 O2 Saturation 100 87 L 02/06/23 02/06/23 02/06/23 21:02 21:17 21:25 Temperature 37.4 C Heart Rate 103 H 118 H 121 H Respiratory 19 30 H Rate Blood Pressure 70/43 L 133/93 H O2 Saturation 89 L 78 L 02/06/23 02/06/23 02/06/23 22:03 22:26 22:42 Temperature Heart Rate 110 H 82 94 Respiratory 29 H 28 H Rate Blood Pressure 53/39 L 85/66 L O2 Saturation 88 L 87 L 02/06/23 02/06/23 23:04 23:35 Temperature Heart Rate 106 H 107 H Respiratory 30 H 33 H Rate Blood Pressure 55/47 L 92/77 O2 Saturation 88 L 80 L Oxygen O2 Source Mechanical ventilator - EKG (time done) 1921 EKG releavant findings:: EKG personally interpreted by author of this note. Relevant findings are: Rate: Rate (enter#) (87) Rhythm: Atrial fibrillation (w pvc) Intervals: Other (ivcd) Ischemia: Non specific changes Computer interpretation: Agree with computer - Labs Labs: Laboratory Tests 02/06/23 02/06/23 02/06/23 19:21 19:21 19:21 WBC 9.5 RBC 4.85 Hgb 15.9 Hct 51.8 MCV 106.8 H MCH 32.8 H MCHC 30.7 L RDW 14.6 Plt Count 247 MPV 9.9 Neut # (Auto) 5.8 Lymph # (Auto) 2.5 [place] # (Auto) 0.6 Eos # (Auto) 0.2 Baso # (Auto) 0.1 Absolute Nucleated RBC 0.00 Nucleated RBC % 0.0 PT 26.6 H INR 2.5 H Bld Gas Analysis Time Sample Site ABG pH ABG pCO2 ABG pO2 ABG HCO3 ABG Total CO2 ABG O2 Saturation ABG Base Excess Hollis Test VBG pH VBG pCO2 VBG pO2 VBG HCO3 VBG Total CO2 VBG O2 Saturation VBG Base Excess Respiration Rate O2 Delivery Device Vent Mode FiO2 Tidal Volume PEEP Sodium Potassium Chloride Carbon Dioxide Anion Gap BUN Creatinine Estimated GFR (MDRD) Glucose Lactic Acid Calcium Phosphorus Magnesium Total Bilirubin AST ALT Alkaline Phosphatase Total Creatine Kinase Troponin I High Sens 85.8 H* B-Natriuretic Peptide Total Protein Albumin Globulin Albumin/Globulin Ratio TSH Urine Color Urine Clarity Urine pH Ur Specific [place] Urine Protein Urine Glucose (UA) Urine Ketones Urine Occult Blood Urine Nitrite Urine Bilirubin Urine Urobilinogen Ur Leukocyte Esterase Urine RBC Urine WBC Ur Epithelial Cells Ur Squamous Epith Cells Amorphous Sediment Urine Bacteria Urine Mucus Ur Microscopic Review Urine Culture Comments Nasal Adenovirus (PCR) Nasal B. parapertussis DNA (PCR) Nasal Coronavir 229E PCR Nasal Coronavir HKU1 PCR Nasal Coronavir NL63 PCR Nasal Coronavir OC43 PCR Nasal Enterovir/Rhinovir PCR Nasal Influenza B PCR Nasal Influenza A PCR Nasal Parainfluen 1 PCR Nasal Parainfluen 2 PCR Nasal Parainfluen 3 PCR Nasal Parainfluen 4 PCR Nasal RSV (PCR) Nasal B.pertussis DNA PCR Nasal C.pneumoniae (PCR) James Human Metapneumo PCR Nasal M.pneumoniae (PCR) Nasal SARS-CoV-2 (PCR) Urine Opiates Screen Ur Oxycodone Screen Urine Methadone Screen Ur Propoxyphene Screen Ur Barbiturates Screen Ur Tricyclics Screen Ur Phencyclidine Scrn Ur Amphetamine Screen U Methamphetamines Scrn U Benzodiazepines Scrn Urine Cocaine Screen U Cannabinoids Screen Ethyl Alcohol 02/06/23 02/06/23 02/06/23 19:21 19:21 19:21 WBC RBC Hgb Hct MCV MCH MCHC RDW Plt Count MPV Neut # (Auto) Lymph # (Auto) [place] # (Auto) Eos # (Auto) Baso # (Auto) Absolute Nucleated RBC Nucleated RBC % PT INR Bld Gas Analysis Time Sample Site ABG pH ABG pCO2 ABG pO2 ABG HCO3 ABG Total CO2 ABG O2 Saturation ABG Base Excess Hollis Test VBG pH VBG pCO2 VBG pO2 VBG HCO3 VBG Total CO2 VBG O2 Saturation VBG Base Excess Respiration Rate O2 Delivery Device Vent Mode FiO2 Tidal Volume PEEP Sodium Potassium Chloride Carbon Dioxide Anion Gap BUN Creatinine Estimated GFR (MDRD) Glucose Lactic Acid 7.4 H* Calcium Phosphorus Magnesium Total Bilirubin AST ALT Alkaline Phosphatase Total Creatine Kinase Troponin I High Sens B-Natriuretic Peptide 672 H Total Protein Albumin Globulin Albumin/Globulin Ratio TSH 12.50 H Urine Color Urine Clarity Urine pH Ur Specific [place] Urine Protein Urine Glucose (UA) Urine Ketones Urine Occult Blood Urine Nitrite Urine Bilirubin Urine Urobilinogen Ur Leukocyte Esterase Urine RBC Urine WBC Ur Epithelial Cells Ur Squamous Epith Cells Amorphous Sediment Urine Bacteria Urine Mucus Ur Microscopic Review Urine Culture Comments Nasal Adenovirus (PCR) Nasal B. parapertussis DNA (PCR) Nasal Coronavir 229E PCR Nasal Coronavir HKU1 PCR Nasal Coronavir NL63 PCR Nasal Coronavir OC43 PCR Nasal Enterovir/Rhinovir PCR Nasal Influenza B PCR Nasal Influenza A PCR Nasal Parainfluen 1 PCR Nasal Parainfluen 2 PCR Nasal Parainfluen 3 PCR Nasal Parainfluen 4 PCR Nasal RSV (PCR) Nasal B.pertussis DNA PCR Nasal C.pneumoniae (PCR) James Human Metapneumo PCR Nasal M.pneumoniae (PCR) Nasal SARS-CoV-2 (PCR) Urine Opiates Screen Ur Oxycodone Screen Urine Methadone Screen Ur Propoxyphene Screen Ur Barbiturates Screen Ur Tricyclics Screen Ur Phencyclidine Scrn Ur Amphetamine Screen U Methamphetamines Scrn U Benzodiazepines Scrn Urine Cocaine Screen U Cannabinoids Screen Ethyl Alcohol 02/06/23 02/06/23 02/06/23 19:21 19:50 20:05 WBC RBC Hgb Hct MCV MCH MCHC RDW Plt Count MPV Neut # (Auto) Lymph # (Auto) [place] # (Auto) Eos # (Auto) Baso # (Auto) Absolute Nucleated RBC Nucleated RBC % PT INR Bld Gas Analysis Time 2013 Sample Site A-LINE ABG pH 7.09 L* ABG pCO2 40 ABG pO2 79 L ABG HCO3 11.9 L ABG Total CO2 13.1 L ABG O2 Saturation 90 L ABG Base Excess -17.4 L Hollis Test NOT APPLICABLE VBG pH 7.035 L VBG pCO2 48.3 VBG pO2 40.0 VBG HCO3 12.6 L VBG Total CO2 14.1 L VBG O2 Saturation 53.8 L VBG Base Excess -18.2 L Respiration Rate 16 O2 Delivery Device VENTILATOR Vent Mode SIMV FiO2 100.00 Tidal Volume 450 PEEP 5 Sodium 140 Potassium 4.3 Chloride 107 Carbon Dioxide 19 L Anion Gap 14.0 H BUN 19 Creatinine 1.9 H Estimated GFR (MDRD) 35 L Glucose 171 H Lactic Acid Calcium 8.0 L Phosphorus 6.9 H Magnesium 2.4 Total Bilirubin 1.1 H AST 111 H ALT 57 Alkaline Phosphatase 148 H Total Creatine Kinase 114 Troponin I High Sens B-Natriuretic Peptide Total Protein 6.6 L Albumin 2.9 L Globulin 3.7 Albumin/Globulin Ratio 0.8 L TSH Urine Color Urine Clarity Urine pH Ur Specific [place] Urine Protein Urine Glucose (UA) Urine Ketones Urine Occult Blood Urine Nitrite Urine Bilirubin Urine Urobilinogen Ur Leukocyte Esterase Urine RBC Urine WBC Ur Epithelial Cells Ur Squamous Epith Cells Amorphous Sediment Urine Bacteria Urine Mucus Ur Microscopic Review Urine Culture Comments Nasal Adenovirus (PCR) Nasal B. parapertussis DNA (PCR) Nasal Coronavir 229E PCR Nasal Coronavir HKU1 PCR Nasal Coronavir NL63 PCR Nasal Coronavir OC43 PCR Nasal Enterovir/Rhinovir PCR Nasal Influenza B PCR Nasal Influenza A PCR Nasal Parainfluen 1 PCR Nasal Parainfluen 2 PCR Nasal Parainfluen 3 PCR Nasal Parainfluen 4 PCR Nasal RSV (PCR) Nasal B.pertussis DNA PCR Nasal C.pneumoniae (PCR) James Human Metapneumo PCR Nasal M.pneumoniae (PCR) Nasal SARS-CoV-2 (PCR) Urine Opiates Screen Ur Oxycodone Screen Urine Methadone Screen Ur Propoxyphene Screen Ur Barbiturates Screen Ur Tricyclics Screen Ur Phencyclidine Scrn Ur Amphetamine Screen U Methamphetamines Scrn U Benzodiazepines Scrn Urine Cocaine Screen U Cannabinoids Screen Ethyl Alcohol < 5.0 02/06/23 02/06/23 02/06/23 21:13 21:13 21:13 WBC RBC Hgb Hct MCV MCH MCHC RDW Plt Count MPV Neut # (Auto) Lymph # (Auto) [place] # (Auto) Eos # (Auto) Baso # (Auto) Absolute Nucleated RBC Nucleated RBC % PT INR Bld Gas Analysis Time 211 Sample Site A-LINE ABG pH 7.18 L* ABG pCO2 40 ABG pO2 103 H ABG HCO3 14.5 L ABG Total CO2 15.7 L ABG O2 Saturation 97 ABG Base Excess -13.2 L Hollis Test POSITIVE VBG pH VBG pCO2 VBG pO2 VBG HCO3 VBG Total CO2 VBG O2 Saturation VBG Base Excess Respiration Rate 16 O2 Delivery Device VENTILATOR Vent Mode SIMV FiO2 100.00 Tidal Volume 450 PEEP 5 Sodium 134 L Potassium 4.3 Chloride 109 Carbon Dioxide 16 L Anion Gap 9.0 BUN 20 Creatinine 1.8 H Estimated GFR (MDRD) 37 L Glucose 179 H Lactic Acid Calcium 7.8 L Phosphorus Magnesium Total Bilirubin AST ALT Alkaline Phosphatase Total Creatine Kinase Troponin I High Sens 339.9 H* B-Natriuretic Peptide Total Protein Albumin Globulin Albumin/Globulin Ratio TSH Urine Color Urine Clarity Urine pH Ur Specific [place] Urine Protein Urine Glucose (UA) Urine Ketones Urine Occult Blood Urine Nitrite Urine Bilirubin Urine Urobilinogen Ur Leukocyte Esterase Urine RBC Urine WBC Ur Epithelial Cells Ur Squamous Epith Cells Amorphous Sediment Urine Bacteria Urine Mucus Ur Microscopic Review Urine Culture Comments Nasal Adenovirus (PCR) Nasal B. parapertussis DNA (PCR) Nasal Coronavir 229E PCR Nasal Coronavir HKU1 PCR Nasal Coronavir NL63 PCR Nasal Coronavir OC43 PCR Nasal Enterovir/Rhinovir PCR Nasal Influenza B PCR Nasal Influenza A PCR Nasal Parainfluen 1 PCR Nasal Parainfluen 2 PCR Nasal Parainfluen 3 PCR Nasal Parainfluen 4 PCR Nasal RSV (PCR) Nasal B.pertussis DNA PCR Nasal C.pneumoniae (PCR) James Human Metapneumo PCR Nasal M.pneumoniae (PCR) Nasal SARS-CoV-2 (PCR) Urine Opiates Screen Ur Oxycodone Screen Urine Methadone Screen Ur Propoxyphene Screen Ur Barbiturates Screen Ur Tricyclics Screen Ur Phencyclidine Scrn Ur Amphetamine Screen U Methamphetamines Scrn U Benzodiazepines Scrn Urine Cocaine Screen U Cannabinoids Screen Ethyl Alcohol 02/06/23 02/06/23 22:21 22:54 WBC RBC Hgb Hct MCV MCH MCHC RDW Plt Count MPV Neut # (Auto) Lymph # (Auto) [place] # (Auto) Eos # (Auto) Baso # (Auto) Absolute Nucleated RBC Nucleated RBC % PT INR Bld Gas Analysis Time Sample Site ABG pH ABG pCO2 ABG pO2 ABG HCO3 ABG Total CO2 ABG O2 Saturation ABG Base Excess Hollis Test VBG pH VBG pCO2 VBG pO2 VBG HCO3 VBG Total CO2 VBG O2 Saturation VBG Base Excess Respiration Rate O2 Delivery Device Vent Mode FiO2 Tidal Volume PEEP Sodium Potassium Chloride Carbon Dioxide Anion Gap BUN Creatinine Estimated GFR (MDRD) Glucose Lactic Acid Calcium Phosphorus Magnesium Total Bilirubin AST ALT Alkaline Phosphatase Total Creatine Kinase Troponin I High Sens B-Natriuretic Peptide Total Protein Albumin Globulin Albumin/Globulin Ratio TSH Urine Color YELLOW Urine Clarity CLEAR Urine pH 6.5 Ur Specific [place] 1.020 Urine Protein >=300 H Urine Glucose (UA) 500 H Urine Ketones NEGATIVE Urine Occult Blood TRACE-INTA Urine Nitrite NEGATIVE Urine Bilirubin NEGATIVE Urine Urobilinogen 0.2 (NORMAL) Ur Leukocyte Esterase NEGATIVE Urine RBC 6-10 H Urine WBC 4-5 Ur Epithelial Cells RARE Transitional Ur Squamous Epith Cells RARE Squamous Amorphous Sediment Few Urine Bacteria Few Urine Mucus Few Strands Ur Microscopic Review INDICATED Urine Culture Comments NOT INDICATED Nasal Adenovirus (PCR) NOT DETECTED Nasal B. parapertussis DNA (PCR) NOT DETECTED Nasal Coronavir 229E PCR NOT DETECTED Nasal Coronavir HKU1 PCR NOT DETECTED Nasal Coronavir NL63 PCR NOT DETECTED Nasal Coronavir OC43 PCR NOT DETECTED Nasal Enterovir/Rhinovir PCR NOT DETECTED Nasal Influenza B PCR NOT DETECTED Nasal Influenza A PCR NOT DETECTED Nasal Parainfluen 1 PCR NOT DETECTED Nasal Parainfluen 2 PCR NOT DETECTED Nasal Parainfluen 3 PCR NOT DETECTED Nasal Parainfluen 4 PCR NOT DETECTED Nasal RSV (PCR) NOT DETECTED Nasal B.pertussis DNA PCR NOT DETECTED Nasal C.pneumoniae (PCR) NOT DETECTED James Human Metapneumo PCR NOT DETECTED Nasal M.pneumoniae (PCR) NOT DETECTED Nasal SARS-CoV-2 (PCR) NOT DETECTED Urine Opiates Screen NEGATIVE Ur Oxycodone Screen NEGATIVE Urine Methadone Screen NEGATIVE Ur Propoxyphene Screen NEGATIVE Ur Barbiturates Screen NEGATIVE Ur Tricyclics Screen NEGATIVE Ur Phencyclidine Scrn NEGATIVE Ur Amphetamine Screen NEGATIVE U Methamphetamines Scrn NEGATIVE U Benzodiazepines Scrn NEGATIVE Urine Cocaine Screen NEGATIVE U Cannabinoids Screen NEGATIVE Ethyl Alcohol - Rads (name of study) CT esteban scan demonstrates groundglass opacities in the lungs with 3 rib fractures, cardiomegaly and hiatal hernia Relevant Findings:: Final report received, EMP independent interpretation of test Initial single view chest x-ray showing endotracheal tube 2.6 cm above jaxson with bilateral opacities Relevant Findings:: Final report received, EMP independent interpretation of test Procedures - General procedure General procedure: Arterial line was placed in the right radial artery using real-time ultrasound guidance with return of red blood that looked arterial and modestly high pressure albeit perhaps not pulsatile. At that time though BP ~50/30. It was sutured in place. Transduction and subsequent ABG c/w arterial placement. - Central Line - Major Central Line Preparation: Unable to obtain consent, Ultrasound used, Sterile prep and drape Central line location: Right Femoral Central line type: Triple lumen Central line aftercare: Chlorhexidine disc placed, Secured, No complications, Bundle checklist complete, Pt tolerated well PD Medical Decision Making - ED course ED course: 77-year-old gentleman with history of some heart problems albeit vague in the chart presents after cardiac arrest. He was found awake and talking by EMS, but complaining of dizziness and had syncopized. Then had a 2-minute episode of PEA arrest bradycardic, followed by another 15-minute episode of PEA arrest. On arrival he has achieved ROSC again. He was attended to immediately of course. A right femoral central line was placed, subsequently he had another episode of PEA arrest which responded to about 2 minutes of CPR and 1 mg of epinephrine. After that he remained very hypotensive and vasoplegic. Bedside ultrasound shows very poor EF. Norepinephrine was rapidly titrated up and decision to add dobutamine was made given his poor EF on bedside ultrasound. An A-line was placed in the right radial artery which did not initially read well, presumably because of very low blood pressures in the range of 50/30 at that point. I spoke with his son by phone who will make his way to the hospital. Pending the start of the dobutamine, he received several doses of push dose epinephrine to support his blood pressure and cardiac contractility. After that his blood pressure did stabilize with maps in the 60s and 70s and we took him over to CT for esteban scan. He was accepted to the [facility] ICU at approximately 10:[address] Keaton Jorge. In the interim Dr. Jorge recommends 100 mL of 25% albumin, ceftriaxone, He called back a short while later and also requested aspirin and heparin drip. It was noted that they would not formally accept the patient to a bed until his COVID results was completed. His son was at the bedside and confirmed that his father would like aggressive measures including CPR and any other advanced life-saving measures that were necessary. This was based on a recent conversation with him he says. - Critical Care Time(min): 150 Time Includes: Direct patient care, Review records, Reassess patient, Document care, Coordinate care, Medical consult, Family consult for tx dec Data interpretation: Labs, Pulse ox, ABG Procedures included in critical care time: Peripheral IV Procedures excluded from critical care time: Central IV, Arterial cannulation, CPR, See progress note Departure - Departure Disposition: 02 Transfer Acute Care Hosp Clinical Impression: Cardiac arrest, Aspiration pneumonitis, Cardiogenic shock Multiple rib fractures Qualifiers: Encounter type: initial encounter Fracture type: closed Laterality: right Qualified Code(s): S22.41XA - Multiple fractures of ribs, right side, initial encounter for closed fracture Respiratory failure Qualifiers: Chronicity: acute Respiratory failure complication: hypoxia Qualified Code(s): J96.01 - Acute respiratory failure with hypoxia Condition: Critical Discharge Date/Time: 02/07/23 01:07
[2023-02-06 19:31] LABS: BASOPHILS # (AUTO) 0.1 10^3/uL (0.0-0.1); BASOPHILS % (AUTO) 0.6 %; EOSINOPHILS # (AUTO) 0.2 10^3/uL (0.0-0.7); EOSINOPHILS % (AUTO) 2.4 %; HCT - HEMATOCRIT 51.8 % (42.0-52.0); HGB - HEMOGLOBIN 15.9 g/dL (14.0-18.0); LYMPHOCYTES # (AUTO) 2.5 10^3/uL (1.5-3.5); LYMPHOCYTES % (AUTO) 26.7 %; MEAN CORPUSCULAR HEMOGLOBIN 32.8 pg (27.0-31.0); MEAN CORPUSCULAR HGB CONC 30.7 g/dL (32.0-36.0); MEAN CORPUSCULAR VOLUME 106.8 fL (80.0-94.0); MEAN PLATELET VOLUME 9.9 fL (7.4-11.4); MONOCYTES # (AUTO) 0.6 10^3/uL (0.0-1.0); MONOCYTES % (AUTO) 5.8 %; NEUTROPHILS # (AUTO) 5.8 10^3/uL (1.5-6.6); NEUTROPHILS % (AUTO) 61.3 %; PLT - PLATELET COUNT 247 10^3/uL (130-450); RED BLOOD COUNT 4.85 10^6/uL (4.70-6.10); RED CELL DISTRIBUTION WIDTH 14.6 % (12.0-15.0); WHITE BLOOD COUNT 9.5 x10^3/uL (4.8-10.8)
[2023-02-06] MEDS ORDERED: NOREPINEPHRINE/D5W 8 MG/250 ML BAG IV ONE (19:34)
[2023-02-06 19:38] LABS: INR 2.5 (0.8-1.2); PT - PROTHROMBIN TIME 26.6 secs (9.9-12.6)
[2023-02-06 19:39] LABS: VBG BASE EXCESS -18.2 mmol/L (-2 - +2); VBG HCO3 12.6 mmol/L (23-28); VBG OXYGEN SATURATION 53.8 % (60-80); VBG PCO2 48.3 mmHg (41-51); VBG TOTAL CO2 14.1 mmol/L (24-29)
[2023-02-06] MEDS ORDERED: EPINEPHrine ABBOJECT 1 MG/10 ML SYRINGE IVP STA ×3 (19:39→20:22)
[2023-02-06 19:42] LABS: VBG PH 7.035 (7.31-7.41)
--- NOTE | 2023-02-06 19:51 | XRAY Report ---
PROCEDURE: Chest 1 View X-Ray INDICATIONS: cardiac arrest TECHNIQUE: One view of the chest was acquired. COMPARISON: Chest x-ray 06/26/2021. FINDINGS: Surgical changes and devices: There is an endotracheal tube 2.6 cm above jaxson. Lungs and pleura: The lateral pulmonary infiltrates, right greater than left, compatible with asymmet regina pulmonary edema. Left basilar atelectasis. No pleural effusions or pneumothorax. Mediastinum: Mediastinal contours appear normal. Heart size is increased. Bones and chest wall: No suspicious bony lesions. Overlying soft tissues appear unremarkable. IMPRESSION: Endotracheal tube is 2.6 mm above jaxson. Reviewed by: Gee Arambula MD on 02/06/2023 7:50 PM PDT Approved by: Gee Arambula MD on 02/06/2023 7:50 PM PDT Station ID: [id number]
[2023-02-06] MEDS ORDERED: NOREPINEPHRINE/D5W 8 MG/250 ML BAG IV SCH (20:00)
--- NOTE | 2023-02-06 20:07 | XRAY Report ---
PROCEDURE: Chest 1 View X-Ray INDICATIONS: Possible pneumo TECHNIQUE: One view of the chest was acquired. COMPARISON: Chest x-ray, 02/06/2023. FINDINGS: Surgical changes and devices: The endotracheal tube is seen with the tip 5cm above jaxson. Lungs and pleura: Bilateral airspace infiltrates compatible with pulmonary edema. No pleural effusio ns or pneumothorax. Mediastinum: Mediastinal contours appear normal. Heart size is moderate increased. Bones and chest wall: No suspicious bony lesions. Overlying soft tissues appear unremarkable. IMPRESSION: 1. Endotracheal tube projects 5 cm above jaxson. 2. Bilateral airspace infiltrates , right greater than left, most likely secondary to asymmetric pulm onary edema. Cannot rule out right lung aspiration or pneumonia. Reviewed by: Gee Arambula MD on 02/06/2023 8:06 PM PDT Approved by: Gee Arambula MD on 02/06/2023 8:06 PM PDT Station ID: [id number]
[2023-02-06 20:08] LABS: ALBUMIN 2.9 g/dL (3.2-5.5); ALBUMIN/GLOBULIN RATIO 0.8 (1.0-2.2); ALKALINE PHOSPHATASE 148 IU/L (42-121); ALT ALANINE AMINOTRANSFERASE 57 IU/L (10-60); AST ASPARTATE AMINOTRANSFERASE 111 IU/L (10-42); BILIRUBIN,TOTAL 1.1 mg/dL (0.2-1.0); BUN - BLOOD UREA NITROGEN 19 mg/dL (6-20); CARBON DIOXIDE - CO2 19 mmol/L (21-32); CHLORIDE 107 mmol/L (101-111); CK- CREATINE KINASE 114 IU/L (22-269); CREATININE 1.9 mg/dL (0.6-1.2); ETOH - ETHANOL < 5.0 mg/dL; GFR - MDRD 35 (>89); GLUCOSE 171 mg/dL (70-100); MAGNESIUM 2.4 mg/dL (1.7-2.8); PHOSPHORUS 6.9 mg/dL (2.5-4.6); POTASSIUM 4.3 mmol/L (3.5-5.0); SODIUM 140 mmol/L (135-145); TOTAL PROTEIN 6.6 g/dL (6.7-8.2)
[2023-02-06] MEDS ORDERED: DOBUTamine 500 MG/250 ML 500 MG/250 ML BAG IV STA (20:15)
--- OUTSIDE RECORDS SUMMARY | 2023-02-06 20:16 | EXTERNAL MEDICAL SUMMARY RPT | Continuity of Care Document ---
Author Name Unknown Address [address] [place] [address] Phone Organization [facility] Address [address] [phone] Phone Problems date description facility 2023-01-07 16:39 Heart failure, unspecified [facility] 2023-01-08 15:18 Heart failure, unspecified [facility] 2023-01-09 08:47 Heart failure, unspecified [facility] Results/Labs test date author facility value unit interpretation Result panel 1 (unknown) (no date) (unknown) (unknown) (no value) (units unknown) (unknown) (unknown) (no date) (unknown) (unknown) +---------+ 29 9-1300 +--------- (units unknown) (unknown) (unknown) (no date) (unknown) (unknown) +---------+ Ho spital +--------- (units unknown) (unknown) (unknown) (no date) (unknown) (unknown) + ------- (units unknown) (unknown) (unknown) (no date) (unknown) (unknown) [id number] (units unknown) (unknown) (unknown) (no date) (unknown) (unknown) 01/08/23 (units unknown) (unknown) (unknown) (no date) (unknown) (unknown) [address] (un its unknown) (unknown) (unknown) (no date) (unknown) (unknown) : : [address] : : (units unknown) (unknown) (unknown) (no date) (unknown) (unknown) : : [id number] : : (units unknown) (unknown) (unknown) (no date) (unknown) (unknown) : : NICOLETTE Pearl : : (units unknown) (unknown) (unknown) (no date) (unknown) (unknown) : : Phone: [phone] : : (units unknown) (unknown) (unknown) (no date) (unknown) (unknown) : Gender: Male BSA: 2.3 m2 : (units unknown) (unknown) (unknown) (no date) (unknown) (unknown) :: [birth year] Age: 77 yrs BP: 141/85 mmHg: (units unknown) (unknown) (unknown) (no date) (unknown) (unknown) :[facility] ReadingLocation: Weight: 234 lb : (units unknown) (unknown) (unknown) (no date) (unknown) (unknown) :CISCO Perform ed By: PINKY LOPEZ : (units unknown) (unknown) (unknown) (no date) (unknown) (unknown) :Name: QUEENIELanette Study Date: 01/08/2023 Height: 71 in : (units unknown) (unknown) (unknown) (no date) (unknown) (unknown) :Ordering Phys ician: LALO, : (units unknown) (unknown) (unknown) (no date) (unknown) (unknown) :Reason For St udy: HEART FAILURE HR: 65 : (units unknown) (unknown) (unknown) (no date) (unknown) (unknown) :Referring: CISCO LNYN : (units unknown) (unknown) (unknown) (no date) (unknown) (unknown) sev ratio: 0.74 ( units unknown) (unknown) (unknown) (no date) (unknown) (unknown) TIGRE indexed to BSA (cm2/m2): 1.0 (units unknown) (unknown) (unknown) (no date) (unknown) (unknown) TIGRE(VTI)/BSA_phl: 1. 0 (units unknown) (unknown) (unknown) (no date) (unknown) (unknown) Accession Numb er: [id number] (units unknown) (unknown) (unknown) (no date) (unknown) (unknown) Age/Sex: 77 / M Date of Service: (units unknown) (unknown) (unknown) (no date) (unknown) (unknown) NICOLETTE Pearl [phone] (units unknown) (unknown) (unknown) (no date) (unknown) (unknown) Ao V2 VTI: 21. 6 cm TIGRE(V,D): 2.3 cm2 (units unknown) (unknown) (unknown) (no date) (unknown) (unknown) Ao V2 max: 118 .0 cm/sec LVOT Max Aakash: 87.5 cm/sec (units unknown) (unknown) (unknown) (no date) (unknown) (unknown) Ao V2 mean: 87 .9 cm/sec LV V1 max P.1 mmHg (units unknown) (unknown) (unknown) (no date) (unknown) (unknown) Ao max P.0 mmHg LV V1 VTI: 15.9 cm (units unknown) (unknown) (unknown) (no date) (unknown) (unknown) Ao mean P. 0 mmHg TIGRE(I,D): 2.3 cm2 (units unknown) (unknown) (unknown) (no date) (unknown) (unknown) Aortic Valve: The aortic valve is trileaflet. The aortic valve is slightly (units unknown) (unknown) (unknown) (no date) (unknown) (unknown) Atria: The lef t atrial size is normal. The right atrium is severely dilated. (units unknown) (unknown) (unknown) (no date) (unknown) (unknown) : 7 Acct:[id number] (units unknown) (unknown) (unknown) (no date) (unknown) (unknown) Doppler Measur ements + Calculations (units unknown) (unknown) (unknown) (no date) (unknown) (unknown) E/E' med: 14.4 (unit s unknown) (unknown) (unknown) (no date) (unknown) (unknown) Echocardiogram Repor t (units unknown) (unknown) (unknown) (no date) (unknown) (unknown) Echocardiograp hy Report (units unknown) (unknown) (unknown) (no date) (unknown) (unknown) Electronically signed by: Rupal Lepe on (units unknown) (unknown) (unknown) (no date) (unknown) (unknown) Endocardium is not well visualized. Contrast echo should be performed in the (units unknown) (unknown) (unknown) (no date) (unknown) (unknown) FS: 21.2 % (units unknown) (unknown) (unknown) (no date) (unknown) (unknown) Great Vessels: The aortic root is mildly dilated. The ascending aorta could (units unknown) (unknown) (unknown) (no date) (unknown) (unknown) IVSd: 1.1 cm (units unknown) (unknown) (unknown) (no date) (unknown) (unknown) Interpretation Summary (units unknown) (unknown) (unknown) (no date) (unknown) (unknown) [facility] (uni ts unknown) (unknown) (unknown) (no date) (unknown) (unknown) [place] (units unknown) (unknown) (unknown) (no date) (unknown) (unknown) LA A2 area: 17 .8 cm2 RA long axis: 6.9 cm (units unknown) (unknown) (unknown) (no date) (unknown) (unknown) LA A4 area: 20.4 cm2 (units unknown) (unknown) (unknown) (no date) (unknown) (unknown) LA length (vol ): 6.1 cm (units unknown) (unknown) (unknown) (no date) (unknown) (unknown) LA vol index: 22.3 ml/m2 (units unknown) (unknown) (unknown) (no date) (unknown) (unknown) LA vol: 50.4 ml (uni ts unknown) (unknown) (unknown) (no date) (unknown) (unknown) LV barroso. diame ter/BSA (cm/m2): 2.3 (units unknown) (unknown) (unknown) (no date) (unknown) (unknown) LV sys. diamet er/BSA (cm/m2): 1.8 (units unknown) (unknown) (unknown) (no date) (unknown) (unknown) LVIDd: 5.2 cm LVOT diam: 2.0 cm (units unknown) (unknown) (unknown) (no date) (unknown) (unknown) LVIDs: 4.1 cm Ao root diam: 3.9 cm (units unknown) (unknown) (unknown) (no date) (unknown) (unknown) LVLs ap2: 6.5 cm (un its unknown) (unknown) (unknown) (no date) (unknown) (unknown) LVLs ap4: 7.0 cm LVLd ap2: 7.3 cm (units unknown) (unknown) (unknown) (no date) (unknown) (unknown) LVPWd: 1.1 cm (units unknown) (unknown) (unknown) (no date) (unknown) (unknown) Left Ventricle : The left ventricle is normal in size. There is mild (units unknown) (unknown) (unknown) (no date) (unknown) (unknown) Loc: ECHO (units unknown) (unknown) (unknown) (no date) (unknown) (unknown) MMode/2D Measu rements + Calculations (units unknown) (unknown) (unknown) (no date) (unknown) (unknown) MV A max aakash: 56.6 cm/sec TR max P.1 mmHg (units unknown) (unknown) (unknown) (no date) (unknown) (unknown) MV E max aakash: 65.6 cm/sec TR max aakash: 371.0 cm/sec (units unknown) (unknown) (unknown) (no date) (unknown) (unknown) MV E/A: 1.2 PA pr(Accel): 42.5 mmHg (units unknown) (unknown) (unknown) (no date) (unknown) (unknown) MV P1/2t-pr_ph l: 55.0 msec (units unknown) (unknown) (unknown) (no date) (unknown) (unknown) MV dec time: 0.19 se c (units unknown) (unknown) (unknown) (no date) (unknown) (unknown) Med Peak E' Ve l: 4.5 cm/sec (units unknown) (unknown) (unknown) (no date) (unknown) (unknown) Mild concentri c left ventricular hypertrophy with ejection fraction 50-55%. (units unknown) (unknown) (unknown) (no date) (unknown) (unknown) Mitral Valve: The mitral valve leaflets appear normal. There is no evidence (units unknown) (unknown) (unknown) (no date) (unknown) (unknown) Moderate tricu spid regurgitation. (units unknown) (unknown) (unknown) (no date) (unknown) (unknown) Ordering Provi modesto: Cisco Lynn MD (units unknown) (unknown) (unknown) (no date) (unknown) (unknown) Patient: Prashant Jerome MR#: [id number] (units unknown) (unknown) (unknown) (no date) (unknown) (unknown) Pericardium/ P leura There is no pericardial effusion. There is no pleural (units unknown) (unknown) (unknown) (no date) (unknown) (unknown) Probable anter ior wall and septum hypokinesis. (units unknown) (unknown) (unknown) (no date) (unknown) (unknown) Procedure: A two-dimensional transthoracic echocardiogram with color flow (units unknown) (unknown) (unknown) (no date) (unknown) (unknown) Procedure: EC echo doppler complete (units unknown) (unknown) (unknown) (no date) (unknown) (unknown) Pulmonic Valve : The pulmonic valve is not well visualized. There is trace (units unknown) (unknown) (unknown) (no date) (unknown) (unknown) Reading Physician:01/09/2023 09:30 AM (units unknown) (unknown) (unknown) (no date) (unknown) (unknown) Right Ventricl e: The right ventricle is moderately dilated. Right (units unknown) (unknown) (unknown) (no date) (unknown) (unknown) Right ventricu lar systolic function is moderate to severely reduced. (units unknown) (unknown) (unknown) (no date) (unknown) (unknown) SV(LVOT): 50.0 ml AV VR_phl: 0.74 (units unknown) (unknown) (unknown) (no date) (unknown) (unknown) Severe pulmona ry hypertension. (units unknown) (unknown) (unknown) (no date) (unknown) (unknown) Signed (units unknown) (unknown) (unknown) (no date) (unknown) (unknown) Technically di fficult study and suboptimal images were obtained. (units unknown) (unknown) (unknown) (no date) (unknown) (unknown) The aortic romeo ve is slightly calcified. (units unknown) (unknown) (unknown) (no date) (unknown) (unknown) The right atri um is severely dilated. (units unknown) (unknown) (unknown) (no date) (unknown) (unknown) The right vent ricle is moderately dilated. (units unknown) (unknown) (unknown) (no date) (unknown) (unknown) The right vent ricular systolic pressure is estimated to be at least 69 mmHg (units unknown) (unknown) (unknown) (no date) (unknown) (unknown) There is sever e pulmonary hypertension. (units unknown) (unknown) (unknown) (no date) (unknown) (unknown) Tricuspid Valv e: The tricuspid annulus is dilated. There is moderate (units unknown) (unknown) (unknown) (no date) (unknown) (unknown) (units unknown) (unknown) (unknown) (no date) (unknown) (unknown) and Doppler wa s performed. The study quality was technically difficult. There (units unknown) (unknown) (unknown) (no date) (unknown) (unknown) based on an es timated right atrial pressure of 8 mm Hg. (units unknown) (unknown) (unknown) (no date) (unknown) (unknown) be 50-55%. The re is anterior wall hypokinesis. There is septal wall (units unknown) (unknown) (unknown) (no date) (unknown) (unknown) calcified. The re is no aortic valve stenosis. No aortic regurgitation is (units unknown) (unknown) (unknown) (no date) (unknown) (unknown) collapses grea ter than 50% with a sniff. This suggests a right atrial pressure (units unknown) (unknown) (unknown) (no date) (unknown) (unknown) concentric lef t ventricular hypertrophy. The ejection fraction is estimated to (units unknown) (unknown) (unknown) (no date) (unknown) (unknown) effusion. (units unknown) (unknown) (unknown) (no date) (unknown) (unknown) flutter during the exam. (units unknown) (unknown) (unknown) (no date) (unknown) (unknown) future study. (units unknown) (unknown) (unknown) (no date) (unknown) (unknown) hypokinesis. (units unknown) (unknown) (unknown) (no date) (unknown) (unknown) is no prior echocardiogram noted for this patient. The patient was in atrial (units unknown) (unknown) (unknown) (no date) (unknown) (unknown) not be visuali zed. The IVC is dilated (diameter is greater than 2.1 cm) yet it (units unknown) (unknown) (unknown) (no date) (unknown) (unknown) of 8 mm Hg. (units unknown) (unknown) (unknown) (no date) (unknown) (unknown) of stenosis, fluttering, or prolapse. There is trace mitral regurgitation. (units unknown) (unknown) (unknown) (no date) (unknown) (unknown) present. (units unknown) (unknown) (unknown) (no date) (unknown) (unknown) pulmonic regurgitation. (units unknown) (unknown) (unknown) (no date) (unknown) (unknown) to be at least 69 mmHg based on an estimated right atrial pressure of 8 mm Hg. (units unknown) (unknown) (unknown) (no date) (unknown) (unknown) tricuspid regurgitation. The right ventricular systolic pressure is estimated (units unknown) (unknown) (unknown) (no date) (unknown) (unknown) ventricular sy stolic function is moderate to severely reduced. (units unknown) (unknown)
[2023-02-06 20:22] LABS: ABG HCO3 11.9 mmol/L (22.0-26.0); ABG PCO2 40 mmHg (34-45); ABG PO2 79 mmHg (80-100)
[2023-02-06 20:23] LABS: ABG BASE EXCESS -17.4 mmol/L (-2.0-3.0); ABG OXYGEN SATURATION 90 % (94-98); ABG TCO2 13.1 MMOL/L (21.0-29.0)
[2023-02-06 20:24] LABS: ABG MODE OF VENTILATION SIMV; ABG RESPIRATORY RATE 16 b/min
[2023-02-06 20:26] LABS: ABG PH 7.09 (7.35-7.45)
[2023-02-06] MEDS ORDERED: iohexoL-300 100 ML VIAL ONE (20:37)
[2023-02-06] MEDS ORDERED: iohexoL-300 100 ML VIAL IVP ONE (21:17)
[2023-02-06 21:27] LABS: ABG HCO3 14.5 mmol/L (22.0-26.0); ABG PCO2 40 mmHg (34-45); ABG PO2 103 mmHg (80-100)
[2023-02-06 21:28] LABS: ABG BASE EXCESS -13.2 mmol/L (-2.0-3.0); ABG OXYGEN SATURATION 97 % (94-98); ABG TCO2 15.7 MMOL/L (21.0-29.0); ALLEN TEST POSITIVE
[2023-02-06 21:29] LABS: ABG MODE OF VENTILATION SIMV; ABG RESPIRATORY RATE 16 b/min
[2023-02-06 21:31] LABS: ABG PH 7.18 (7.35-7.45)
--- NOTE | 2023-02-06 21:31 | CT Report ---
PROCEDURE: HEAD WO INDICATIONS: Cardiac arrest with ROSC TECHNIQUE: Noncontrast 4.5 mm thick angled axial sections acquired from the foramen magnum to the vertex. For r adiation dose reduction, the following was used: automated exposure control, adjustment of mA and/or kV according to patient size. COMPARISON: None. FINDINGS: Image quality: Evaluation is markedly limited by motion artifact as well as streak artifact from mult iple external devices and wires. CSF spaces: Basal cisterns are patent. No definite extra-axial fluid collections. Ventricles are n ormal in size and shape. Brain: Limited evaluation demonstrates no definite intracranial hemorrhage, mass, or mass effect. Gr ay-white matter interface appears grossly preserved. Skull and face: Calvarium and visualized facial bones are intact, without suspicious lesions. There is a partially visualized endotracheal tube. Sinuses: Visualized sinuses and mastoids are clear. IMPRESSION: 1. Limited study demonstrates no definite acute intracranial abnormality. Reviewed by: Elver Rich MD on 02/06/2023 9:30 PM PDT Approved by: Elver Rich MD on 02/06/2023 9:30 PM PDT Station ID: [id number]
[2023-02-06 21:33] LABS: CALCIUM 7.8 mg/dL (8.5-10.3); CREATININE 1.8 mg/dL (0.6-1.2); POTASSIUM 4.3 mmol/L (3.5-5.0)
--- NOTE | 2023-02-06 21:34 | CT Report ---
PROCEDURE: CERVICAL SPINE WO INDICATIONS: Cardiac arrest with ROSC TECHNIQUE: Noncontrast 3 mm thick sections acquired from the skull base to the T4 level. Sagittal and coronal r eformats were then constructed. For radiation dose reduction, the following was used: automated exp osure control, adjustment of mA and/or kV according to patient size. COMPARISON: None. FINDINGS: Image quality: There is motion artifact limiting evaluation. Bones: No fractures or subluxation. There is straightening of the cervical lordosis. Minimal retroli sthesis demonstrated C2-C3 and C3-C4. There is multilevel degenerative disc disease and facet arthrop athy. Visualized superior ribs are intact. Soft tissues: An endotracheal tube is present. Prevertebral soft tissues are normal in thickness. N o paravertebral hematomas. No apical pneumothoraces. There are patchy irregular airspace opacities within the visualized right upper lobe. IMPRESSION: 1. No fracture or subluxation. Reviewed by: Elver Rich MD on 02/06/2023 9:33 PM PDT Approved by: Elver Rich MD on 02/06/2023 9:33 PM PDT Station ID: [id number]
--- NOTE | 2023-02-06 21:40 | CT Report ---
PROCEDURE: ANGIO CHEST W/WO INDICATIONS: Cardiac arrest with ROSC CONTRAST: 100mL Omni 300 TECHNIQUE: After the administration of intravenous contrast, 2 mm axial images were acquired from the pulmonary apices to the posterior costophrenic angles during the arterial phase. In addition, 1 mm lung kernel and 5 mm soft tissue kernel reconstructions were performed. 3-dimensional coronal oblique maximum int ensity projection (MIP) reformats, 8 mm axial MIP, and 5 mm coronal and sagittal MPR reformats were t hen performed through the thorax. For radiation dose reduction, the following was used: automated exp osure control, adjustment of mA and/or kV according to patient size. COMPARISON: Concurrent studies of the cervical spine and abdomen. FINDINGS: Image quality: Evaluation limited by motion and beam hardening artifact. Pulmonary arteries: Pulmonary arteries are normal in size, and demonstrate no definite intraluminal filling defects to suggest central pulmonary embolism. Evaluation of subsegmental pulmonary arteries is limited by motion artifact. Lower Neck: No lymphadenopathy by size criteria. Thyroid: Visualized thyroid demonstrates no discrete nodules. Axillae: No lymphadenopathy by size criteria. Chest Wall: Unremarkable. Bones: There are mildly displaced fractures of the right third through sixth ribs anteriorly. Lungs and Airways: There are bilateral patchy areas of peribronchial consolidation, right greater oskar n left. No suspicious pulmonary nodules. The trachea and central airways are patent. Pleura: No pneumothorax or pleural effusions. Heart: Heart size is enlarged. No pericardial effusion. Thoracic Vessels: The thoracic aorta is normal in size. Mediastinum and Olivia: No lymphadenopathy by size criteria. No retrosternal hematoma. Esophagus: No wall thickening. There is a moderate-sized hiatal hernia. Abdomen: Visualized upper abdominal solid organs appear normal in the early arterial phase of enhanc ement. IMPRESSION: 1. Markedly limited study due to motion and beam hardening artifact. 2. No central pulmonary embolism to the level of the segmental pulmonary arteries. Evaluation of subs egmental branches mostly nondiagnostic due to motion artifact. 3. Bilateral patchy peribronchial areas of consolidation likely represents an infectious or inflammat ory process. 4. No pneumothorax. 5. Mildly displaced fractures of the right third through sixth ribs anteriorly. Reviewed by: Elver Givens MD on 02/06/2023 9:39 PM PDT Approved by: Elver Givens MD on 02/06/2023 9:39 PM PDT Station ID: [id number]
--- NOTE | 2023-02-06 21:54 | CT Report ---
PROCEDURE: ABDOMEN/PELVIS W INDICATIONS: Cardiac arrest with ROSC CONTRAST: 100mL Omni 300 TECHNIQUE: After the administration of intravenous contrast, 5 mm thick sections acquired from the diaphragms to the symphysis. 5 mm thick coronal and sagittal reformats were acquired. For radiation dose reducti on, the following was used: automated exposure control, adjustment of mA and/or kV according to freddy ent size. COMPARISON: Concurrent CT of the chest. FINDINGS: Image quality: There is extensive motion artifact and beam hardening artifact limiting evaluation. Lung bases:There are bilateral patchy areas of peribronchial consolidation as well as atelectasis an d scarring. Heart:Heart size is enlarged. There is a moderate-sized hiatal hernia. ABDOMEN: Liver: No mass lesion. Gallbladder: Within normal limits without calcified gallstones. Biliary ducts: No biliary ductal dilatation. Pancreas: Unremarkable. Spleen: Normal in size. Adrenal Glands: No adrenal nodules. Kidneys and Ureters: No hydronephrosis. Stomach and Bowel: Stomach, small bowel loops, and colon are normal in caliber and wall thickness. Peritoneum: No abnormal intraperitoneal fluid. No free air. Ventral Wall: No hernia. Abdominal Nodes: No retroperitoneal or mesenteric adenopathy by size criteria. Vessels: Aorta and inferior vena cava are normal in size. PELVIS: Pelvic Organs: Unremarkable. Bladder:There is a Honeycutt catheter within a partially distended urinary bladder. Pelvic Nodes: No enlarged lymph nodes. Miscellaneous: No inguinal hernias. There is a right femoral catheter extending into the right lockstitch sleeve setter al iliac vein. Bones: Visualized osseous structures demonstrate no suspicious lesions. IMPRESSION: 1. No definite acute traumatic abnormality in the abdomen and pelvis. 2. Cardiomegaly and moderate size hiatal hernia. 3. Patchy areas of peribronchial consolidation within the visualized lung bases. Reviewed by: Elver Rich MD on 02/06/2023 9:53 PM PDT Approved by: Elver Rich MD on 02/06/2023 9:53 PM PDT Station ID: [id number]
[2023-02-06] MEDS ORDERED: ALBUMIN 25% 12.5 GM/50 ML VIAL IV STA ×2 (22:04)
[2023-02-06] MEDS ORDERED: cefTRIAXone 1 GM VIAL IVP STA (22:04)
[2023-02-06] MEDS ORDERED: CALCIUM CHLORIDE ABBOJECT 1000MG/10 ML SYRINGE IVP STA (22:05)
[2023-02-06] MEDS ORDERED: ASPIRIN 300 MG SUPP PR STA (22:22)
[2023-02-06 22:58] LABS: MUDS CUTOFF CONCENTRATIONS CUTOFF CONC BELOW:
[2023-02-06 22:59] LABS: BILIRUBIN,URINE NEGATIVE (NEGATIVE); GLUCOSE, URINE (UA) 500 mg/dL (NEGATIVE); KETONES,URINE (UA) NEGATIVE (NEGATIVE); LEUKOCYTE ESTERASE, URINE NEGATIVE (NEGATIVE); NITRITE,URINE NEGATIVE (NEGATIVE); OCCULT BLOOD,URINE TRACE-INTA (NEGATIVE); PH,URINE 6.5 PH (5.0-7.5); PROTEIN,URINE >=300 mg/dL (NEGATIVE); UROBILINOGEN,URINE 0.2 (NORMAL) E.U./dL (NORMAL)
[2023-02-06] MEDS ORDERED: HEPARIN 25000UNITS/500ML (D5W) 25,000 UNIT/500 ML BAG IV SCH (23:00)
[2023-02-06 23:02] LABS: CLARITY,URINE CLEAR (CLEAR)
[2023-02-06 23:08] LABS: AMORPHOUS SEDIMENT,UR Few /LPF; BACTERIA,URINE Few /HPF (None Seen); EPITHELIAL CELLS,UR RARE Transitional /HPF (<= Few); MUCUS,URINE Few Strands; SQUAMOUS EPITHELIAL CELL,UR RARE Squamous (<= Few)
[2023-02-06 23:09] LABS: AMPHETAMINE SCREEN,URINE NEGATIVE (NEGATIVE); BARBITURATE SCREEN,UR NEGATIVE (NEGATIVE); BENZODIAZEPINES SCREEN, URINE NEGATIVE (NEGATIVE); COCAINE SCREEN URINE NEGATIVE (NEGATIVE); METHADONE SCREEN, URINE NEGATIVE (NEGATIVE); METHAMPHETAMINES SCREEN, URINE NEGATIVE (NEGATIVE); OPIATE SCREEN, URINE NEGATIVE (NEGATIVE); OXYCODONE SCREEN, URINE NEGATIVE (NEGATIVE); PROPOXYPHENE SCREEN, URINE NEGATIVE (NEGATIVE); THC CANNABINOID SCREEN, URINE NEGATIVE (NEGATIVE); TRICYCLIC ANTIDEPRESSANT,URINE NEGATIVE (NEGATIVE)
[2023-02-06 23:19] LABS: B. PARAPERTUSSIS- RESP PCR PAN NOT DETECTED; B. PERTUSSIS- RESP PCR PANEL NOT DETECTED; C. PNEUMONIAE- RESP PCR PANEL NOT DETECTED; CORONAVIRUS 229E-RESP PCR NOT DETECTED; CORONAVIRUS HKU1-RESP PCR NOT DETECTED; CORONAVIRUS NL63-RESP PCR NOT DETECTED; CORONAVIRUS OC43-RESP PCR NOT DETECTED; HUMAN METAPNEUMOVIRUS NOT DETECTED; INFLUENZA A- RESP PCR PANEL NOT DETECTED; INFLUENZA B - RESP PCR PANEL NOT DETECTED; M. PNEUMONIAE- RESP PCR PANEL NOT DETECTED; PARAINFLUENZA VIRUS 1 NOT DETECTED; PARAINFLUENZA VIRUS 2 NOT DETECTED; PARAINFLUENZA VIRUS 3 NOT DETECTED; PARAINFLUENZA VIRUS 4 NOT DETECTED; RHINOVIRUS/ENTEROVIRUS NOT DETECTED; RSV- RESP PCR PANEL NOT DETECTED; SARS-CoV-2 -RESP PCR PANEL NOT DETECTED
[2023-02-06 23:37] VITALS: BP 92/77
[2023-02-07] MEDS ORDERED: NOREPINEPHRINE/D5W 8 MG/250 ML BAG IV ONE (00:09)
== END 2023-02-07 01:07 | disposition short-term general hospital (02) ==
LOC: EDUNIT# → ED 19:07
DX: J96.01 Acute respiratory failure with hypoxia (principal); S22.41XA Multiple fractures of ribs, right side, initial encounter for closed fracture; X58.XXXA Exposure to other specified factors, initial encounter; I46.9 Cardiac arrest, cause unspecified; J69.0 Pneumonitis due to inhalation of food and vomit; R57.0 Cardiogenic shock; Z20.822 Contact with and (suspected) exposure to COVID-19
CPT/HCPCS: 36415; 36556; 36620; 51702; 70450; 71045; 71275; 72125; 74177; 80048; 80053; 80306; 81001; 82550; 82803; 83605; 83735; 83880; 84100; 84443; 84484; 85025; 85610; 87633; 92950; 93005; 94002; 96365; 96366; 96368; 96375; 99291; 99292; A9270; G0480; J1250; P9047; Q9967; 80320; 81003; 87086; 94770

== ENCOUNTER 2023-02-27 15:27 | Outpatient (CLI) | payer MEDICARE, MEDICAID ==
--- NOTE | 2023-02-27 17:16 | XRAY Report ---
PROCEDURE: Knee 2 View RT INDICATIONS: DISP FX OF MED CONDYLE OF R FEMR TECHNIQUE: 1 views of the right knee(s) were acquired. COMPARISON: None. FINDINGS: Bones: Only single view provided. Degenerative arthritis with medial and lateral compartment joint sp mignon loss. Question fractured bony fragments lateral to the distal diametaphyseal region of the femur as well as off the medial femoral condyle. Soft tissues: No knee joint effusion. No suspicious soft tissue calcifications or masses. IMPRESSION: Question 2 fracture fragments. Degenerative arthritis. Consider CT knee for further evaluation. Reviewed by: Lance Killian MD on 02/27/2023 5:14 PM PDT Approved by: Lance Killian MD on 02/27/2023 5:14 PM PDT Station ID: [id number]
== END 2023-02-27 15:28 | disposition home or self-care (01) ==
LOC: DI 15:27
PROVIDERS: ATTEND Registered Nurse
DX: S72.431D Displaced fracture of medial condyle of right femur, subsequent encounter for closed fracture with routine healing (principal); M17.11 Unilateral primary osteoarthritis, right knee

== ENCOUNTER 2023-03-15 16:01 | Outpatient (CLI) | payer MEDICARE, MEDICAID ==
--- NOTE | 2023-03-16 09:19 | XRAY Report ---
PROCEDURE: Chest 2 View X-Ray INDICATIONS: RULE OUT PNEUMONIA TECHNIQUE: 2 views of the chest were acquired. COMPARISON: Chest x-ray, 02/06/2023. FINDINGS: Surgical changes and devices: There is a cardiac monitoring device in the left anterior chest. Lungs and pleura: There are bilateral pulmonary infiltrates, right greater than left, consistent with pneumonia. No pleural effusions or pneumothorax. Mediastinum: Mediastinal contours appear normal. Heart size is normal. Bones and chest wall: No suspicious bony lesions. Overlying soft tissues appear unremarkable. IMPRESSION: Bilateral pneumonia, right greater than left. Reviewed by: Gee Arambula MD on 03/16/2023 9:18 AM PDT Approved by: Gee Aramblua MD on 03/16/2023 9:18 AM PDT Station ID: [id number]
== END 2023-03-15 16:02 | disposition home or self-care (01) ==
LOC: DI 16:01
PROVIDERS: ATTEND Registered Nurse
DX: J18.9 Pneumonia, unspecified organism (principal)

== ENCOUNTER 2023-03-25 08:00 | Outpatient (CLI) | payer MEDICARE, MEDICAID ==
[2023-03-25 11:16] LABS: CALCIUM 9.2 mg/dL (8.5-10.3); CREATININE 1.4 mg/dL (0.6-1.2); MAGNESIUM 2.3 mg/dL (1.7-2.8); POTASSIUM 4.4 mmol/L (3.5-5.0)
== END 2023-03-25 23:59 | disposition home or self-care (01) ==
LOC: LAB.N 08:00
PROVIDERS: ATTEND Registered Nurse
DX: I11.0 Hypertensive heart disease with heart failure (principal); I50.82 Biventricular heart failure; I50.22 Chronic systolic (congestive) heart failure; M62.59 Muscle wasting and atrophy, not elsewhere classified, multiple sites
CPT/HCPCS: 36415; 80048; 83735; 83880

== ENCOUNTER 2023-04-24 10:33 | Outpatient (CLI) | payer MEDICARE, MEDICAID | END 2023-04-24 10:34 | disposition home or self-care (01) | LOC: RT 10:33 | PROVIDERS: ATTEND Internal Medicine Cardiovascular Disease | DX: I48.0 Paroxysmal atrial fibrillation (principal); Z79.899 Other long term (current) drug therapy | CPT/HCPCS: 94010; 94727; 94729 ==

== ENCOUNTER 2023-06-27 12:30 | Outpatient (CLI) | payer MEDICARE, MEDICAID | END 2023-06-27 23:59 | disposition E | LOC: EMS 12:30 ==